=== PATIENT | male | born 1990 | race Caucasian/White ===

== ENCOUNTER 2018-04-29 08:43 | Inpatient (IN) | payer BC, SELFPAY ==
[2018-04-29] VITALS (44 sets, daily range): BP systolic 125–219; BP diastolic 78–147; PULSE 70–127; RESP 10–100; TEMP 36.6–36.8; O2SAT 14–100; BMI 19.3; BMI 19.1; BMI 19.2
--- NOTE | 2018-04-29 09:15 | CT_ITS ---
STUDY: CT BRAIN WITHOUT CONTRAST REASON FOR EXAM: Male, 27 years old. Headaches. Blurred vision and hypertension. RADIATION DOSAGE (If Supplied By Facility): CTDIvol = ( 44.99 ) mGy, DLP = ( 779.24 ) mGycm TECHNIQUE: Transaxial CT imaging of the brain was performed without administration of intravenous contrast material. Individualized dose optimization techniques were used for this CT. COMPARISON: None. FINDINGS: Normal soft tissue structures. Normal calvarium. Normal size ventricles and extra-axial spaces for the patient's age. Normal white matter tracts of the cerebral hemispheres. Normal basal ganglia and thalami. Normal brainstem. Normal cerebellum. There is no intracranial hemorrhage. There are no findings of an acute ischemic infarction. Normal visualized paranasal sinuses. Prominence of the adenoidal tissue. CT/Brain/Head without Contrast IMPRESSION: Normal unenhanced CT scan of the brain. Electronically Signed: Max Jolly MD at 10:00 EST Tel [phone], Service support ,
--- NOTE | 2018-04-29 09:51 | ED.RN ---
CALLED PHARMACY A 2ND TIME REGARDING TRANDATE.
[2018-04-29 09:57] LABS: Anion Gap 10 (5-15); BUN 38 mg/dL (7-18); BUN/Creat Ratio 12.2 RATIO (10-20); Chloride 103 mmol/L (98-107); Creatinine, Serum 3.11 mg/dL (0.70-1.30); EST Glomerular Filtration Rate 25 mL/min (>60); Est Glom Filt Rate - Afr Amer 31 mL/min (>60); Estimated Creatinine Clearance 30.35 ml/min; Glucose 109 mg/dL (74-106); Potassium 3.4 mmol/L (3.5-5.1); Sodium Level 138 mmol/L (136-145)
[2018-04-29] MEDS: Labetalol 20 MG/4 ML Vial 10 MG IV (09:59)
--- NOTE | 2018-04-29 10:23 | ED.VISSUMM ---
- ER Visit Summary Date of Service: 04/29/18 Chief Complaint: Headaches and elevated blood pressure History of Present Illness: The patient is a 27 M recently started on verapamil by his primary care physician Dr. Ernesto Mcnally for headaches. Patient is currently not being treated for hypertension. He says sometimes his headaches are are bad enough that he gets nauseated. He denies any trouble moving his arms or legs. He does have intermittent blurred vision. He denies any head trauma. He is on no blood thinners. Physical Examination: Young male no acute distress. Initial blood pressure is elevated at 211/134. Heart rate 105. HEENT exam is unremarkable. No facial droop. Pupils round reactive light. Extra motions are intact. Normal speech. Neck nontender. No lymphadenopathy. Lungs clear to auscultation bilaterally. Heart regular rhythm no murmur. Rate about 100. Abdomen soft nontender. Normal bowel sounds no peritoneal signs. Patient is moving all 4 extremities. Neurovascular intact. Calves are nontender without edema or cords. Neurologically patient is awake and alert with no focal motor deficits. Equal symmetrical road conductor strength. Dorsi and plantar flexion intact. NIH score is 0. Test Results: Seizures white count of 10. Hemoglobin of 12. Mild anemia. His electrolytes are unremarkable his BUN is 38 his creatinine is 3.1 do not have any old labs available for comparison. This may be from untreated hypertension that he was unaware of that he had. CT of the brain was read as normal by the radiologist read both by him and reviewed by me. Emergency Department Course and Treatment: I believe most of patient's symptoms are consistent with new onset hypertension. I am checking screening labs and a CT of his brain. Treatment Plan: Patient was treated with labetalol IV boluses x2 without any significant change. I spoke to the hospitalist will start him on a Cardene drip. He will be admitted to the ICU. Disposition: Discharge Impression: Acute hypertensive emergency Acute renal injury from hypertension This note was generated with [employer] dictation software. It may contain incorrect words, spelling, and punctuation that were not noted in review of the chart prior to signing ED Disposition - Plan for ED Patient: Chief Complaint: Eye Problem Referrals: Ernesto Mcnally MD [Primary Care Provider] -
--- NOTE | 2018-04-29 10:26 | ED.DCSUM_ITS ---
- ER Visit Summary Date of Service: 04/29/18 Chief Complaint: Headaches and elevated blood pressure History of Present Illness: The patient is a 27 M recently started on verapamil by his primary care physician Dr. Ernesto Mcnally for headaches. Patient is currently not being treated for hypertension. He says sometimes his headaches are are bad enough that he gets nauseated. He denies any trouble moving his arms or legs. He does have intermittent blurred vision. He denies any head trauma. He is on no blood thinners. Physical Examination: Young male no acute distress. Initial blood pressure is elevated at 211/134. Heart rate 105. HEENT exam is unremarkable. No facial droop. Pupils round reactive light. Extra motions are intact. Normal speech. Neck nontender. No lymphadenopathy. Lungs clear to auscultation bilaterally. Heart regular rhythm no murmur. Rate about 100. Abdomen soft nontender. Normal bowel sounds no peritoneal signs. Patient is moving all 4 extremities. Neurovascular intact. Calves are nontender without edema or cords. Neurologically patient is awake and alert with no focal motor deficits. Equal symmetrical field care coordinator strength. Dorsi and plantar flexion intact. NIH score is 0. Test Results: Seizures white count of 10. Hemoglobin of 12. Mild anemia. His electrolytes are unremarkable his BUN is 38 his creatinine is 3.1 do not have any old labs available for comparison. This may be from untreated hypertension that he was unaware of that he had. CT of the brain was read as normal by the radiologist read both by him and reviewed by me. Emergency Department Course and Treatment: I believe most of patient's symptoms are consistent with new onset hypertension. I am checking screening labs and a CT of his brain. Treatment Plan: Patient was treated with labetalol IV boluses x2 without any significant change. I spoke to the hospitalist will start him on a Cardene drip. He will be admitted to the ICU. Disposition: Discharge Impression: Acute hypertensive emergency Acute renal injury from hypertension This note was generated with [employer] dictation software. It may contain incorrect words, spelling, and punctuation that were not noted in review of the chart prior to signing ED Disposition - Plan for ED Patient: Chief Complaint: Eye Problem Referrals: Ernesto Mcnally MD [Primary Care Provider] -
[2018-04-29 10:33] LABS: Hematocrit 37.3 % (40-54); Hemoglobin 12.6 g/dl (13.0-16.5); Mean Corp Hgb Conc 33.8 g/gl (32-36); Mean Corpuscular Hgb 31.4 pg (27.0-32.0); Mean Platelet Vol. 10.1 fl (6.2-12.0); Platelet Count 357 K/mm3 (150-450); RBC Distribution Width CV 12.4 % (11.6-14.6); RBC Distribution Width SD 42.5 fl (35.1-43.9); Red Blood Count 4.01 M/mm3 (4.6-6.2); Scan Indicated on CBC? Y/N NO; White Blood Count 10.9 K/mm3 (4.4-11.0)
--- NOTE | 2018-04-29 11:00 | NURSING ---
DR BROWN IN ER
--- NOTE | 2018-04-29 11:08 | ED.RN ---
CALLED PHARMACY FOR JAYJAY.
--- NOTE | 2018-04-29 11:15 | NURSING ---
NO OLD EKGS
--- NOTE | 2018-04-29 11:16 | NURSING ---
ICU [facility], RENAL INSUFFIENCIEY
--- NOTE | 2018-04-29 11:38 | EKG12_ITS ---
Test Reason : HIGH BP Blood Pressure : / mmHG Vent. Rate : 087 BPM Atrial Rate : 087 BPM P-R Int : 150 ms QRS Dur : 096 ms QT Int : 386 ms P-R-T Axes : 077 082 072 degrees QTc Int : 464 ms Normal sinus rhythm Incomplete right bundle branch block Borderline ECG Confirmed by MATHEW COBURN ([id number]), industrial editor REAGAN VILLALOBOS ([id number]) on 05/04/2018 2:35:44 PM Referred By: KEVIN Confirmed By:MATHEW COBURN
--- NOTE | 2018-04-29 11:44 | NURSING ---
ICU 7
--- NOTE | 2018-04-29 11:44 | ED.RN ---
ICU WILL CALL BACK TO GET REPORT
--- NOTE | 2018-04-29 11:50 | PCM.HP.STD ---
Problem List (1) Hypertensive emergency Status: Acute (2) Headache Status: Acute (3) Kidney failure Status: Acute History of Present Illness Date of Admission: 04/29/18 Chief Complaint: Headache and blurry vision The patient is a 27 year old M came to ED with headache and blurry vision. Patient does not know his history of hypertension but in ED was found 190/127, heart rate 124/min, sinus tachycardia on monitor. Patient was given 2 doses of IV labetalol 10 mg but his blood pressure was still high 184/108, 179/134 and then decided to put on IV nicardipine drip and admitted in ICU. Patient is on verapamil by PCP for headache only once about 3 weeks ago. Is not any antihypertensive medication. He also lost about 15 pounds in last 6 months. Basic blood work in ER shows K3.4, creatinine 3.11, BUN 38. H&H 12.6/37.3. No previous labs to compare with. EKG shows normal sinus rhythm at 87 bpm with incomplete RBBB but no LVH. Patient accepted smoking 1 pack/day since the age of 10 or 11. He also drinks alcohol and states has quit about 3-4 months ago because of headache. Past Medical History Allergies codeine Allergy (Verified 04/29/18 08:48) Rash Home Medications: Ambulatory Orders Medication Instructions Recorded Verapamil HCl [Verapamil ER] 1 tab PO DAILY 04/29/18 Smoking Status: Current every day smoker - Smoking - *Family History Maternal History Items: Hypertension Review of Systems Constitutional: Reports: Malaise, Weakness, Weight Change, Fatigue HEENT: Denies: Head Aches, Sinus Congestion, Sinus Drainage Cardiovascular: Denies: Chest Pain, Palpitations Respiratory: Denies: Cough, Shortness of Breath, Shortness of breath at rest, Shortness of breath upon exertion, Sputum production Gastrointestinal: Denies: Abdominal Pain, Nausea, Vomiting Genitourinary: Denies: Dysuria Musculoskeletal: Denies: Joint Pain, Joint Tenderness Skin: Denies: Rash, Wounds Neurological: Reports: Headaches. Denies: Focal weakness, Numbness, Tingling Psychiatric: Denies: Anxiety, Depression, Homicidal Ideations, Suicidal Ideations Hematologic/ Lymphatic: Denies: Easy Bruising, Easy Bleeding VTE Information - Inpt Only VTE Present on Admission: No VTE Mechan Device Prophylaxis: None VTE Pharm Prophylaxis ordered?: No Reason prophylaxis not ordered:: Procedure Not Indicated - Low risk. Early ambulation encouraged Patient Problems: Active and Suspected Problems Hypertensive emergency (Acute) Headache (Acute) Kidney failure (Acute) - Physical Exam General: Alert, Oriented x3, Cooperative HEENT: Atraumatic, PERRLA, EOMI, Normocephalic Neck: Supple, No JVD, Negative Carotid Bruits Lungs: Clear to auscultation, Normal air movement, No rhonchi, No wheeze, No rales Cardiovascular: Regular rate, Regular Rhythm, Normal S1, Normal S2, No murmurs Abdomen: Bowel Sounds Present, Soft, Non Tender, Non-Distended Extremities: No edema, Capillary Refill Less than 3 Seconds Skin: No rashes, No breakdown Musculoskeletal: No Tenderness to Palpation of Joints or Extremities, Muscle Wasting Lymphatic: No Cervical, Supraclavicular, or Inguinal Adenopathy Neurological: Cranial nerves II-XII grossly intact, Deep Tendon Reflexes 2+/4 and Symmetrical, Neuro grossly intact, Motor Exam 5/5 strength throughout Psych/Mental Status: Normal Affect, Appropriate Vital Signs Temp Pulse Resp BP Pulse Ox 98.1 F 100 16 171/102 H 100 04/29/18 11:00 04/29/18 11:48 04/29/18 11:48 04/29/18 11:48 04/29/18 11:48 Oxygen Delivery Method Room Air Weight: 135 lb Body Mass Index (BMI) 19.3 Laboratory Tests Past 24 Hrs 04/29/18 04/29/18 04/29/18 09:30 09:30 09:30 WBC 10.9 RBC 4.01 L Hgb 12.6 L Hct 37.3 L MCV 93.0 MCH 31.4 MCHC 33.8 RDW 12.4 RDW Differential 42.5 Plt Count 357 MPV 10.1 Sodium 138 Potassium 3.4 L Chloride 103 Carbon Dioxide 25.0 Anion Gap 10 BUN 38 H Creatinine 3.11 H Estim Creat Clear Calc 30.35 Est GFR (MDRD) Af Amer 31 L Est GFR (MDRD) Non-Af 25 L BUN/Creatinine Ratio 12.2 Glucose 109 H Calcium 9.0 Magnesium Pending Total Bilirubin Pending Direct Bilirubin Pending AST Pending ALT Pending Alkaline Phosphatase Pending Total Protein Pending Albumin Pending Assessment/Plan All Active Problems Hypertensive emergency (Acute) Headache (Acute) Kidney failure (Acute) The patient is a 27 year old M came to ED with headache and blurry vision. Patient does not know his history of hypertension but in ED was found 190/127, heart rate 124/min, sinus tachycardia on monitor. Patient was given 2 doses of IV labetalol 10 mg but his blood pressure was still high 184/108, 179/134 and then decided to put on IV nicardipine drip and admitted in ICU. Patient is on verapamil by PCP for headache only once about 3 weeks ago. Is not any antihypertensive medication. He also lost about 15 pounds in last 6 months. Basic blood work in ER shows K3.4, creatinine 3.11, BUN 38. H&H 12.6/37.3. No previous labs to compare with. EKG shows normal sinus rhythm at 87 bpm with incomplete RBBB but no LVH. Chest x-ray reported normal Patient accepted smoking 1 pack/day since the age of 10 or 11. He also drinks alcohol and states has quit about 3-4 months ago because of headache. 1 hypertensive emergency with headache and blurry vision: CT head was done in the ER and reported normal. Patient is being admitted in ICU as he is on Cardizem drip which is maximal rate. Boss Dyer has been consulted as per ICU admission regulation. 2D echo is ordered. Is ordered 2. 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 Avoid nephrotoxic medication including KIZZY inhibitor, diuretics. UA, random urine protein, urine electrolytes and urine creatinine ordered. Renal ultrasound and arterial Doppler ordered. Nephrology consult. Discussed with Dr. Harman who already informed Dr. Nguyen and he will be coming to see the patient. 3. Headache and blurry vision: Patient will need to see otolaryngology teacher as outpatient for Fundoscopy with dilated pupil. Fioricet and new verapamil for headache. 4. DVT prophylaxis: Low risk. Early ambulation encouraged. Clinical Impression(s) from Imaging Studies Brain CT 04/29/18 09:15 IMPRESSION: Normal unenhanced CT scan of the brain. Chest X-Ray 04/29/18 12:00 IMPRESSION: Normal x-ray examination of the chest. Code Visit Inpatient E&M: 96564 Init Hosp L3
--- NOTE | 2018-04-29 11:58 | ED.RN ---
GAVE REPORT TO TANK DIMAS.
[2018-04-29 12:00] LABS: AST(SGOT) 20 U/L (15-37); Alanine Aminotransfer ALT/SGPT 24 U/L (16-61); Albumin, Serum 3.6 g/dL (3.2-5.0); Alkaline Phosphatase 87 U/L (45-117); Bilirubin, Direct 0.16 mg/dL (0.00-0.30); Magnesium 2.2 mg/dL (1.6-2.6); Protein, Total 7.6 g/dL (6.4-8.2)
--- NOTE | 2018-04-29 12:00 | RAD_ITS ---
STUDY: X-RAY CHEST REASON FOR EXAM: Male, 27 years old. Hypertension. TECHNIQUE: PA and lateral views of the chest. COMPARISON: None. FINDINGS: The lungs are clear and expanded. There is no demonstrated pleural abnormality. Normal size heart. Normal mediastinum and hermelinda. Normal visualized pulmonary arteries. Normal visualized aortic arch and descending thoracic aorta. There is a levoscoliosis of the thoracic spine. Normal visualized ribs, clavicles, and shoulders. There is no demonstrated abnormality of the visualized soft tissue structures of the upper abdomen. RAD/Chest PA and Lateral IMPRESSION: Normal x-ray examination of the chest. Electronically Signed: nAjum Davis MD at 12:48 EST , Service support ,
--- NOTE | 2018-04-29 12:21 | ECHOD_ITS ---
Reason For Study: HTN Procedure This was a 2D Doppler, Color Flow transthoracic echocardiogram. Exam performed portable in ICU/CCU. Left Ventricle Moderate concentric left ventricular hypertrophy. The estimated ejection fraction is 65 %. Stage 1 diastolic dysfunction. No regional wall motion abnormalities noted. Right Ventricle Normal size and thickness. Normal systolic function. Atria Normal left atrium. Normal right atrium. Normal atrial septum. Mitral Valve The mitral valve is structurally normal. No prolapse or stenosis seen. Tricuspid Valve Trivial tricuspid valve insufficiency. Right ventricular systolic pressure estimated to be 42 mmHg. Mild pulmonary hypertension. Aortic Valve Normal aortic valve. Trisinus/trileaflet aortic valve. Pulmonic Valve Normal pulmonic valve. Great Vessels Normal aortic root. Normal arch. Normal inferior vena cava. Inferior vena cava collapse with sniff. Pericardium/Pleural No pericardial effusion. MMode/2D Measurements & Calculations LVIDd: 4.3 cm IVSd: 1.1 cm Ao root diam: 3.2 cm LVIDs: 2.1 cm LVPWd: 1.1 cm RVDd: 3.1 cm FS: 51.5 % LAV(MOD-bp): 53.9 ml LA A4 area: 17.8 cm2 LA dimension(2D): 3.2 cm LAV(MOD-bp) Indexed: 30.7 ml/m2 LAV(MOD-sp2): 45.0 ml LAV(MOD-sp4): 58.3 ml RA A4 area: 15.1 cm2 Doppler Measurements & Calculations MV E max sonny: 89.3 cm/sec Lat Peak E' Sonny: 15.1 cm/sec Med Peak E' Sonny: 12.5 cm/sec MV A max sonny: 119.6 cm/sec E/E' lat: 5.9 E/E' med: 7.2 MV E/A: 0.75 Ao V2 max: 136.6 cm/sec LV V1 max: 119.9 cm/sec PA V2 max: 250.5 cm/sec Ao max P.5 mmHg LV V1 max P.8 mmHg PA V2 mean: 161.4 cm/sec PA V2 VTI: 35.8 cm TR max sonny: 301.3 cm/sec TR max P.3 mmHg Interpretation Summary Moderate concentric left ventricular hypertrophy. The estimated ejection fraction is 65 %. Stage 1 diastolic dysfunction. Trivial tricuspid valve insufficiency. Right ventricular systolic pressure estimated to be 42 mmHg. Mild pulmonary hypertension. There is no comparison study available. Ordering Physician: Shailesh Cyr Referring Physician: Ernesto Mcnally Performed By: Angie White RDCS, RVT
--- NOTE | 2018-04-29 13:17 | US_ITS ---
STUDY: RENAL ULTRASOUND - COMPLETE REASON FOR EXAM: Male, 27 years old. Acute renal failure TECHNIQUE: Ultrasound evaluation of the kidneys was performed with real-time and static garcia-scale imaging. COMPARISON: None. FINDINGS: RIGHT KIDNEY: Normal location of the right kidney, which is normal in size. The right kidney measures 10.1 x 5.2 x 5.7 cm. There is echogenic cortex of the right kidney. The renal cortex measures 1.7 cm. There is no right renal mass or cyst. There are no right renal calculi. There is no right hydronephrosis. DISTAL RIGHT URETER: There is non-visualization of the distal right ureter. LEFT KIDNEY: Normal location of the left kidney, which is normal in size. The left kidney measures 9.4 x 4.4 x 5.5 cm. There is echogenic cortex of the left kidney. The renal cortex measures 1.6 cm. There is no left renal mass or cyst. There are no left renal calculi. There is no left hydronephrosis. DISTAL LEFT URETER: There is non-visualization of the distal left ureter. US/Kidney and Bladder IMPRESSION: Degenerative cortex of the kidneys suggesting medical renal disease. Electronically Signed: Naresh Jameson DO at 19:41 EST Tel [phone], Service support ,
--- NOTE | 2018-04-29 13:18 | RDU_ITS ---
Reason For Study: HTN EMERGENCY Right Renal Artery Left Renal Artery Right renal artery ostium 90.9/12.3 Left renal artery ostium 112.0/47.4 RSV/EDV. PSV/EDV. Right renal artery proximal Left renal artery mid 115.0/31.7 93.5/17.7 PSV/EDV. PSV/EDV . Right renal artery mid 79.4/15.3 Left renal artery distal 112.0/47.4 PSV/EDV. PSV/EDV. Right renal artery distal 91.1/18.3 Left Renal Parenchyma PSV/EDV. Left upper pole medulla 18.7/4.6 Right Renal Parenchyma PSV/EDV . Upper Pole Medula 21.8/6.3 PSV/EDV. Left upper pole medulla EDR .25 . Right upper pole medulla EDR .29 . Left upper pole medulla R.I. .75 . Right upper pole medulla R.I. .71 . UP Cortex 16.3/6.9 PSV/EDV. Upper [place] Cortx 13.7/5.4 PSV/EDV. Left upper pole cortex EDR .42 . Right upper pole cortex EDR .39 . Left upper pole cortex R.I. .58 . Right upper pole cortex R.I. .61 . Left lower Pole medulla 19.1/5.9 Right lower Pole medulla 18.3/3.9 PSV/EDV . PSV/EDV . Left lower pole medulla EDR .31 . Right lower pole medulla EDR .21 . Left lower pole medulla R.I. .69 . Right lower pole medulla R.I. .79 . Lower Pole Cortx 13.7/3.9 PSV/EDV. Lower Pole Cortex 15.6/3.5 PSV/EDV. Left lower pole cortex EDR .28 . Right lower pole cortex EDR .22 . Left lower pole cortex R.I. .72 . Right lower pole cortex R.I. .77 . Left Renal Hilar Right Renal Hilar LT Hilar avg 29.4/9.1 PSV/EDV . Right Hilar avg 35.8/7.6 PSV/EDV. Left hilar acceleration time 59 Right hilar acceleration time 44 m/sec. m/sec. Left Renal Dimensions Right Renal Dimensions Left kidney size 9.3 cm . Right kidney size 9.7 cm . Left cortical dimension 1.1 cm . Right cortical dimension 1.1 cm . Aorta Proximal abdominal aorta 2.2 x 2.1 cm . Distal abdominal aorta 1.5 x 1.5 cm . Proximal abdominal aorta peak systolic velocity is 161.0 cm/sec . Distal abdominal aorta peak systolic velocity is 111.0 cm/sec . Interpretation Summary Normal aortic diameter but with increased velocities making renal aortic ratios not reliable <60% stenosis bilateral renal arteries Bilateral renal resistivity indices are normal--findings do not suggest intrinsic renal parenchymal disease. Right kidney length 9.7cm Left kidney length 9.3cm Ordering Physician: Shailesh Cyr Referring Physician: Ernesto Mcnally Performed By: Verónica Reed RVT
[2018-04-29 14:15] LABS: Bacteria 0 SEEN /hpf (None Seen); Mucous, Urine 0 SEEN /hpf (<or=2+); Squamous Epithelial Cells - UA 0 SEEN /hpf (0-5)
[2018-04-29 14:19] LABS: Color, Urine Yellow (Yellow); Glucose, Dipstick Normal (Normal); Ketone-Dipstick Negative (Negative); Leukocyte Esterase-Dipstick 25 /ul (Negative); Nitrite-Dipstick Negative (Negative); Occult Blood-Urine 250 /ul (Negative); Protein-Dipstick 500 mg/dl (Negative); Specific Gravity, Urine 1.015 (1.002-1.030); Urine Bilirubin Dipstick Negative (Negative); Urine Clarity Sl. Cloudy (Clear); Urine Urobilinogen Normal (Normal)
[2018-04-29 14:30] LABS: Urine Chloride 71 mmol/L (Not Establ.); Urine Sodium 73 mmol/L (Not Establ.)
[2018-04-29 14:32] LABS: Red Blood Cells-Urine 25-50 SEEN /hpf (0-5); White Blood Cells 0-5 SEEN /hpf (0-5)
[2018-04-29 14:41] LABS: Amphetamine Urine VISTA NEGATIVE (<1000 ng/mL); Barbiturate Urine VISTA NEGATIVE (< 200 ng/mL); Benzodiazepine Urine VISTA NEGATIVE (< 200 ng/mL); Cocaine Urine VISTA NEGATIVE (< 300 ng/mL); Ecstacy Urine VISTA NEGATIVE (< 500 ng/mL); Methadone Urine VISTA NEGATIVE (< 300 ng/mL); PCP Urine VISTA NEGATIVE (< 25 ng/mL); THC Urine VISTA POSITIVE (< 50 ng/mL); Vista UDS pH Range 6
--- NOTE | 2018-04-29 14:43 | PCM.CONS.R ---
Consultation - Renal 04/29/18 PCP/ Referring MD: Requesting physician: Shailesh Cyr MD Primary care physician: Ernesto Mcnally MD Reason for Consultation:: YAMILET, hypertensive urgency - History of Present Illness History of Present Illness: The patient is a 27 year old M with recent history of headache who has otherwise been healthy until 6 months ago. He started developing daily headache. He had been taking Excedrine without much relief. He was seen by his new PCP on 04/20/18 and was placed on verapamil for headache. Unclear what the pt's BP was at the appointment. The pt presents to the hospital with ongoing headache despite verapamil. He also reports palpitation and blurred vision in the past 2 weeks. The pt denies current chest pain, shortness of breath, or edema. He does have gross hematuria intermittently for the past 2 weeks. He reports urinary frequency but no other signs of LUTS. He has occasional L flank pain which has been self-limited. He denies chronic NSAID use. There has been no rash, fever or weight loss. - Allergies Allergies: Allergies codeine Allergy (Verified 04/29/18 08:48) Rash - Current Medications Current Medications: Current Medications Acetaminophen (Tylenol) 650 mg PO Q4H PRN PRN PRN Reason: HEADACHE Acetaminophen/Butalbital/Caffeine (Fioricet) 1 - 2 tablet PO Q4H PRN PRN PRN Reason: moderate to severe headache Al Hydroxide/Mg Hydroxide (Mylanta Ii) 30 ml PO Q6H PRN PRN PRN Reason: Gastric burning Hydralazine HCl (Apresoline Iv) 10 mg IV Q4H PRN PRN Reason: hypertension Hydralazine HCl (Apresoline) 25 mg PO TID [facility] Nicardipine HCl 25 mg/ Sodium (Chloride) 250 mls @ 50 mls/hr IV .Q5H BON Last Admin: 04/29/18 13:55 Dose: 50 mls/hr Magnesium Hydroxide (Milk Of Magnesia) 30 ml PO DAILY PRN PRN PRN Reason: Constipation Metoprolol Tartrate (Lopressor (Beta Ronnie)) 25 mg PO BID [facility] Ondansetron HCl (Zofran) 4 mg IV Q8H PRN PRN PRN Reason: NAUSEA Senna/Docusate Sodium (Senokot-S, Lola-Colace) 2 tablet PO BID PRN PRN Reason: constipation Sodium Chloride () 5 - 15 ml IV UD PRN PRN Reason: SALINE FLUSH Verapamil HCl (Calan Sr) 120 mg PO DAILY BON Zolpidem Tartrate (Ambien (Generic)) 5 mg PO QHS PRN PRN PRN Reason: INSOMNIA - Social History Smoking Status: Current every day smoker - Smoking - Family History Maternal History Items: Hypertension Review of Systems Constitutional: Denies: Anorexia, Chills, Fever, Malaise, Weight Change Eyes: Reports: Blurred vision, Vision Change. Denies: Double vision HEENT: Denies: Head Aches, Sinus Congestion, Sinus Drainage Cardiovascular: Reports: Palpitations. Denies: Chest Pain, Claudication, Edema, Orthopnea, Paroxysmal Noc. Dyspnea Respiratory: Denies: Cough, Shortness of breath at rest, Sputum production Gastrointestinal: Denies: Abdominal Pain, Hematochezia, Nausea, Melena, Vomiting Genitourinary: Reports: Frequency. Denies: Dysuria, Hesitancy, Incontinence, Retention, Urgency Musculoskeletal: Reports: Back Pain. Denies: Joint Pain, Joint Tenderness Skin: Denies: Rash, Wounds Neurological: Denies: Numbness, Tingling, Focal weakness Psychiatric: Denies: Anxiety, Depression, Homicidal Ideations, Suicidal Ideations Endocrine: Denies: Heat/ Cold Intolerance, Polydipsia, Polyuria Hematologic/ Lymphatic: Denies: Easy Bruising, Easy Bleeding Patient Problems: Active and Suspected Problems Hypertensive emergency (Acute) Headache (Acute) Kidney failure (Acute) - Physical Exam General: Alert, Oriented x3, Cooperative HEENT: Atraumatic, PERRLA, EOMI, Normocephalic Oral: Moist Mucosa Neck: Supple, No JVD Lungs: Clear to auscultation Cardiovascular: Regular Rhythm - Tachycardic, Normal S1, Normal S2, Murmur - 3/6 systolic Abdomen: Bowel Sounds Present, Soft, Non Tender, Non-Distended, - - no abdominal bruit Extremities: No clubbing, No cyanosis, No edema Skin: No rashes Musculoskeletal: No Tenderness to Palpation of Joints or Extremities Lymphatic: No Cervical, Supraclavicular, or Inguinal Adenopathy Neurological: Cranial nerves II-XII grossly intact Psych/Mental Status: Normal Affect Vital Signs Temp Pulse Resp BP Pulse Ox 98.1 F 110 H 13 137/80 H 100 04/29/18 11:00 04/29/18 14:15 04/29/18 14:15 04/29/18 14:15 04/29/18 14:15 Oxygen Flow Rate (L/min) 2 Oxygen Delivery Method Nasal Cannula Weight: 60.6 kg Body Mass Index (BMI) 19.1 Laboratory Tests Past 24 Hrs 04/29/18 04/29/18 04/29/18 09:30 09:30 09:30 WBC 10.9 RBC 4.01 L Hgb 12.6 L Hct 37.3 L MCV 93.0 MCH 31.4 MCHC 33.8 RDW 12.4 RDW Differential 42.5 Plt Count 357 MPV 10.1 Sodium 138 Potassium 3.4 L Chloride 103 Carbon Dioxide 25.0 Anion Gap 10 BUN 38 H Creatinine 3.11 H Estim Creat Clear Calc 30.35 Est GFR (MDRD) Af Amer 31 L Est GFR (MDRD) Non-Af 25 L BUN/Creatinine Ratio 12.2 Glucose 109 H Calcium 9.0 Magnesium 2.2 Total Bilirubin 0.90 Direct Bilirubin 0.16 AST 20 ALT 24 Alkaline Phosphatase 87 Troponin I Total Protein 7.6 Albumin 3.6 Globulin 4.0 Urine Color Urine Clarity Urine pH Ur Specific [place] Urine Protein Urine Glucose (UA) Urine Ketones Urine Occult Blood Urine Nitrite Urine Bilirubin Urine Urobilinogen Ur Leukocyte Esterase Urine RBC Urine WBC Ur Squamous Epith Cells Urine Bacteria Urine Mucus U Random Total Protein Ur Random Sodium Urine Potassium Urine Chloride Urine Opiates Screen Urine Methadone Screen Ur Barbiturates Screen Ur Phencyclidine Scrn Ur Amphetamines Screen U Methamphetamin-MDMA U Benzodiazepines Scrn Urine Cocaine Screen U Cannabinoids Screen Ur Drug Screen Comment Ethyl Alcohol 04/29/18 04/29/18 04/29/18 13:30 13:55 14:05 WBC RBC Hgb Hct MCV MCH MCHC RDW RDW Differential Plt Count MPV Sodium Potassium Chloride Carbon Dioxide Anion Gap BUN Creatinine Estim Creat Clear Calc Est GFR (MDRD) Af Amer Est GFR (MDRD) Non-Af BUN/Creatinine Ratio Glucose Calcium Magnesium Total Bilirubin Direct Bilirubin AST ALT Alkaline Phosphatase Troponin I 0.016 Total Protein Albumin Globulin Urine Color Urine Clarity Urine pH Ur Specific [place] Urine Protein Urine Glucose (UA) Urine Ketones Urine Occult Blood Urine Nitrite Urine Bilirubin Urine Urobilinogen Ur Leukocyte Esterase Urine RBC Urine WBC Ur Squamous Epith Cells Urine Bacteria Urine Mucus U Random Total Protein Ur Random Sodium Urine Potassium Urine Chloride Urine Opiates Screen NEGATIVE Urine Methadone Screen NEGATIVE Ur Barbiturates Screen NEGATIVE Ur Phencyclidine Scrn NEGATIVE Ur Amphetamines Screen NEGATIVE U Methamphetamin-MDMA NEGATIVE U Benzodiazepines Scrn NEGATIVE Urine Cocaine Screen NEGATIVE U Cannabinoids Screen POSITIVE H Ur Drug Screen Comment Ethyl Alcohol 5.0 04/29/18 04/29/18 04/29/18 14:05 14:05 14:05 WBC RBC Hgb Hct MCV MCH MCHC RDW RDW Differential Plt Count MPV Sodium Potassium Chloride Carbon Dioxide Anion Gap BUN Creatinine Estim Creat Clear Calc Est GFR (MDRD) Af Amer Est GFR (MDRD) Non-Af BUN/Creatinine Ratio Glucose Calcium Magnesium Total Bilirubin Direct Bilirubin AST ALT Alkaline Phosphatase Troponin I Total Protein Albumin Globulin Urine Color Yellow Urine Clarity Sl. Cloudy Urine pH 6.0 Ur Specific [place] 1.015 Urine Protein 500 H Urine Glucose (UA) Normal Urine Ketones Negative Urine Occult Blood 250 H Urine Nitrite Negative Urine Bilirubin Negative Urine Urobilinogen Normal Ur Leukocyte Esterase 25 H Urine RBC 25-50 SEEN Urine WBC 0-5 SEEN Ur Squamous Epith Cells 0 SEEN Urine Bacteria 0 SEEN Urine Mucus 0 SEEN U Random Total Protein Pending Ur Random Sodium 73 Urine Potassium 22.0 Urine Chloride 71 Urine Opiates Screen Urine Methadone Screen Ur Barbiturates Screen Ur Phencyclidine Scrn Ur Amphetamines Screen U Methamphetamin-MDMA U Benzodiazepines Scrn Urine Cocaine Screen U Cannabinoids Screen Ur Drug Screen Comment Ethyl Alcohol Assessment/Plan All Active Problems Hypertensive emergency (Acute) Headache (Acute) Kidney failure (Acute) 1. Acute kidney injury. Presumed YAMILET since there is no prior SCr for comparison. Undiagnosed CKD is possible. Will see what his kidney sizes are on ultrasound. Agree with checking UA, urine indices, urine protein:creatinine ratio, and renal ultrasound. History of gross hematuria, in the past 2 weeks, makes me worry about acute GN. I will check serologies. Depending on the results of the above studies, the pt may need a kidney biopsy for definitive diagnosis, especially if there is no improvement of renal function. There is no urgent need for kidney replacement therapy (dialysis) at this time. Current medications were reviewed and are appropriately dosed for current renal function. 2. Hypertension. Difficult to tell if HTN is the cause of renal failure or if renal failure has led to difficult to control BP at this point. Nevertheless, treatment of HTn will help decrease injury to the kidneys. Agree with nicardipine gtt. The pt is also on metoprolol 25 BID, verpamil 120 mg qday and hydralazine 25 mg TID. Agree with Dr. Cyr that we only need to decrease BP by 25-30% in the first 24 hrs. Aim for SBP of 150-160 and DBP of 70-100 in the first 24 hrs.
[2018-04-29] MEDS: Metoprolol Tartrate 25 MG Tablet PO ×2 (15:14→21:45)
[2018-04-29] MEDS: hydrALAZINE 25 MG Tablet PO ×2 (15:15→21:45)
[2018-04-29] MEDS: Acetaminophen/Butalbital/Caffe 1 Tablet PO ×2 (15:16→20:18)
[2018-04-29] MEDS: Ondansetron 4 MG/2 ML Vial IV (20:19)
[2018-04-29] MEDS: 0.9% NaCl Peripheral Flush Adult/Peds IV (20:19)
[2018-04-30] VITALS (26 sets, daily range): BP systolic 135–166; BP diastolic 94–120; PULSE 76–100; RESP 12–29; TEMP 36.7–37.7; O2SAT 96–100
[2018-04-30] MEDS: Acetaminophen/Butalbital/Caffe 1 Tablet PO ×4 (00:21→21:21)
[2018-04-30 04:39] LABS: Anion Gap 9 (5-15); BUN 34 mg/dL (7-18); BUN/Creat Ratio 10.1 RATIO (10-20); Calcium,Total 8.4 mg/dL (8.5-10.1); Chloride 106 mmol/L (98-107); Creatinine, Serum 3.37 mg/dL (0.70-1.30); EST Glomerular Filtration Rate 23 mL/min (>60); Est Glom Filt Rate - Afr Amer 28 mL/min (>60); Estimated Creatinine Clearance 27.72 ml/min; Glucose 100 mg/dL (74-106); Potassium 4.2 mmol/L (3.5-5.1); Sodium Level 140 mmol/L (136-145)
[2018-04-30] MEDS: hydrALAZINE 25 MG Tablet PO ×3 (06:21→21:11)
--- NOTE | 2018-04-30 08:43 | PCM.PN.HOSP ---
Patient Problems: Active and Suspected Problems Hypertensive emergency (Acute) Headache (Acute) Kidney failure (Acute) Subjective: Seen and examined. Patient is on nicardipine drip until morning and slowly tapered off. Blood pressure 140/86 though it dropped to 110 sometimes. Heart rate is controlled. Discussed with laborer pullet farm and lieutenant ballistics. Vitals/I&O's: Vital Signs Temp Pulse Resp BP Pulse Ox 98.4 F 92 17 141/108 H 97 04/30/18 08:00 04/30/18 08:00 04/30/18 08:00 04/30/18 07:00 04/30/18 08:00 Oxygen Flow Rate (L/min) 2 Oxygen Delivery Method Room Air Weight: 133 lb 9.602 oz Body Mass Index (BMI) 19.1 Intake and Output for Last 24 Hours 04/28/18 04/29/18 04/30/18 23:59 23:59 23:59 Intake Total 750 / 750 1000 / 1000 Output Total 600 / 600 875 / 875 Balance 150 / 150 125 / 125 General: Alert, Oriented x3, Cooperative HEENT: Atraumatic, PERRLA, EOMI, Normocephalic Neck: Supple, No JVD, Negative Carotid Bruits Lungs: Clear to auscultation, Normal air movement, No rhonchi, No wheeze, No rales Cardiovascular: Regular rate, Regular Rhythm, Normal S1, Normal S2, No murmurs Abdomen: Bowel Sounds Present, Soft, Non Tender, Non-Distended, - - Mild hematuria. No renal angle tenderness. No suprapubic tenderness Extremities: No edema, Capillary Refill Less than 3 Seconds Skin: No rashes, No breakdown Musculoskeletal: No Tenderness to Palpation of Joints or Extremities, Muscle Wasting Neurological: Cranial nerves II-XII grossly intact Psych/Mental Status: Normal Affect, Appropriate Laboratory Results 04/29/18 09:30: Sodium 138, Potassium 3.4 L, Chloride 103, Carbon Dioxide 25.0, Anion Gap 10, BUN 38 H, Creatinine 3.11 H, Estim Creat Clear Calc 30.35, Est GFR (MDRD) Af Amer 31 L, Est GFR (MDRD) Non-Af 25 L, BUN/Creatinine Ratio 12.2, Glucose 109 H, Calcium 9.0 04/29/18 09:30: WBC 10.9, RBC 4.01 L, Hgb 12.6 L, Hct 37.3 L, MCV 93.0, MCH 31.4, MCHC 33.8, RDW 12.4, RDW Differential 42.5, Plt Count 357, MPV 10.1 04/29/18 09:30: Magnesium 2.2, Total Bilirubin 0.90, Direct Bilirubin 0.16, AST 20, ALT 24, Alkaline Phosphatase 87, Total Protein 7.6, Albumin 3.6, Globulin 4.0 04/29/18 09:30: PANTERA Screen Pending, MONTY-1 Antibody Pending, SS-A/Ro IgG Antibody Pending, SS-B/La IgG Antibody Pending, Sm (Ugarte) Antibody Pending, WIRELESS OPERATOR Antibody Pending, Scl-70 Scleroderma Ab Pending, Double Strand DNA Ab Pending, Centromere B Antibody Pending 04/29/18 09:30: c-ANCA Antibody Pending, p-ANCA Antibody Pending, Complement C3 Pending, Complement C4 Pending 04/29/18 13:30: Ethyl Alcohol 5.0 04/29/18 13:55: Troponin I 0.016 04/29/18 14:05: Urine Opiates Screen NEGATIVE, Urine Methadone Screen NEGATIVE, Ur Barbiturates Screen NEGATIVE, Ur Phencyclidine Scrn NEGATIVE, Ur Amphetamines Screen NEGATIVE, U Methamphetamin-MDMA NEGATIVE, U Benzodiazepines Scrn NEGATIVE, Urine Cocaine Screen NEGATIVE, U Cannabinoids Screen POSITIVE H, Ur Drug Screen Comment 04/29/18 14:05: U Random Total Protein 488.0 H 04/29/18 14:05: Urine Color Yellow, Urine Clarity Sl. Cloudy, Urine pH 6.0, Ur Specific [place] 1.015, Urine Protein 500 H, Urine Glucose (UA) Normal, Urine Ketones Negative, Urine Occult Blood 250 H, Urine Nitrite Negative, Urine Bilirubin Negative, Urine Urobilinogen Normal, Ur Leukocyte Esterase 25 H, Urine RBC 25-50 SEEN, Urine WBC 0-5 SEEN, Ur Squamous Epith Cells 0 SEEN, Urine Bacteria 0 SEEN, Urine Mucus 0 SEEN 04/29/18 14:05: Ur Random Sodium 73, Urine Potassium 22.0, Urine Chloride 71 04/29/18 14:27: Urine Creatinine 75.50 04/30/18 04:09: Sodium 140, Potassium 4.2, Chloride 106, Carbon Dioxide 25.0, Anion Gap 9, BUN 34 H, Creatinine 3.37 H, Estim Creat Clear Calc 27.72, Est GFR (MDRD) Af Amer 28 L, Est GFR (MDRD) Non-Af 23 L, BUN/Creatinine Ratio 10.1, Glucose 100, Calcium 8.4 L Current Medications Acetaminophen (Tylenol) 650 mg PO Q4H PRN PRN PRN Reason: HEADACHE Acetaminophen/Butalbital/Caffeine (Fioricet) 1 - 2 tablet PO Q4H PRN PRN PRN Reason: moderate to severe headache Last Admin: 04/30/18 00:21 Dose: 2 tablet Al Hydroxide/Mg Hydroxide (Mylanta Ii) 30 ml PO Q6H PRN PRN PRN Reason: Gastric burning Hydralazine HCl (Apresoline Iv) 10 mg IV Q4H PRN PRN Reason: hypertension Hydralazine HCl (Apresoline) 25 mg PO TID BON Last Admin: 04/30/18 06:21 Dose: 25 mg Magnesium Hydroxide (Milk Of Magnesia) 30 ml PO DAILY PRN PRN PRN Reason: Constipation Metoprolol Tartrate (Lopressor (Beta Ronnie)) 25 mg PO BID BON Last Admin: 04/29/18 21:45 Dose: 25 mg Nicotine (Nicoderm Cq (Pbkc)) 21 mg TRANSDERM. DAILY BON Last Admin: 04/29/18 19:17 Dose: 21 mg Ondansetron HCl (Zofran) 4 mg IV Q8H PRN PRN PRN Reason: NAUSEA Last Admin: 04/29/18 20:19 Dose: 4 mg Petrolatum (Sarna, Men-Phor) 1 applic TOPICAL 4X/DAY PRN PRN; Protocol PRN Reason: CONGESTION Senna/Docusate Sodium (Senokot-S, Lola-Colace) 2 tablet PO BID PRN PRN Reason: constipation Sodium Chloride () 5 - 15 ml IV UD PRN PRN Reason: SALINE FLUSH Last Admin: 04/29/18 20:19 Dose: 10 ml Sodium Chloride ([place] Nasal [place]) 2 spray NASAL BID PRN PRN PRN Reason: NASAL DRYNESS Verapamil HCl (Calan Sr) 120 mg PO DAILY [facility] Zolpidem Tartrate (Ambien (Generic)) 5 mg PO QHS PRN PRN PRN Reason: INSOMNIA Medical Necessity - Tobacco Use Smoking Status: Current every day smoker Tobacco Use: Cigarettes Assessment/Plan All Active Problems Hypertensive emergency (Acute) Headache (Acute) Kidney failure (Acute) The patient is a 27 year old M came to ED with headache and blurry vision. Patient does not know his history of hypertension but in ED was found 190/127, heart rate 124/min, sinus tachycardia on monitor. Patient was given 2 doses of IV labetalol 10 mg but his blood pressure was still high 184/108, 179/134 and then decided to put on IV nicardipine drip and admitted in ICU. Patient is on verapamil by PCP for headache only once about 3 weeks ago. Is not any antihypertensive medication. He also lost about 15 pounds in last 6 months. Basic blood work in ER shows K3.4, creatinine 3.11, BUN 38. H&H 12.6/37.3. No previous labs to compare with. EKG shows normal sinus rhythm at 87 bpm with incomplete RBBB but no LVH. Chest x-ray reported normal Patient accepted smoking 1 pack/day since the age of 10 or 11. He also drinks alcohol and states has quit about 3-4 months ago because of headache. 1 hypertensive emergency with headache and blurry vision: CT head was done in the ER and reported normal. Patient was admitted in ICU and then been transferred to PCU. Nicardipine drip is discontinued. Dr. Olmos recommended Procardia and discontinue verapamil. 2D echo reported as normal LV size and function with mild LVH, EF of 65%, and mild pulmonary hypertension with an RVSP of approximately 42 mmHg. 2. Presumed acute kidney injury as there is no prior creatinine to compare: There is no previous labs to compare with. Onion Topper presumes acute kidney injury with possibility of undiagnosed CKD. Avoid nephrotoxic medication including KIZZY inhibitor, diuretics. Renal arterial Doppler reported as less than 60% stenosis bilateral renal arteries but normal aortic diameter with increased velocities making renal aortic ratios not reliable. Renal sonogram shows degenerative cortex of kidneys suggesting medical renal disease. UA shows protein 500 x, RBC 25-50 cells, LE 25. Urine random protein 488, sodium 73, creatinine 75. Discussed with the laborer pullet farm and he thinks there is high suspicion of glomerulonephritis as the patient has gross hematuria, hypertension and young age. He ordered complement, and, in 24-hour urine collection and those are pending. Possible kidney biopsy on Wednesday. 3. Headache and blurry vision: Patient will need to see manager corporate strategy as outpatient for Fundoscopy with dilated pupil. Fioricet. Verapamil discontinued 4. DVT prophylaxis: Low risk. Early ambulation encouraged. Active Medications Acetaminophen (Tylenol) 650 mg PO Q4H PRN PRN PRN Reason: HEADACHE Acetaminophen/Butalbital/Caffeine (Fioricet) 1 - 2 tablet PO Q4H PRN PRN PRN Reason: moderate to severe headache Last Admin: 04/30/18 14:41 Dose: 2 tablet Al Hydroxide/Mg Hydroxide (Mylanta Ii) 30 ml PO Q6H PRN PRN PRN Reason: Gastric burning Hydralazine HCl (Apresoline Iv) 10 mg IV Q4H PRN PRN Reason: hypertension Hydralazine HCl (Apresoline) 25 mg PO TID [facility] Last Admin: 04/30/18 14:36 Dose: 25 mg Magnesium Hydroxide (Milk Of Magnesia) 30 ml PO DAILY PRN PRN PRN Reason: Constipation Metoprolol Tartrate (Lopressor (Beta Ronnie)) 25 mg PO BID [facility] Last Admin: 04/30/18 08:58 Dose: 25 mg Nicotine (Nicoderm Cq (Pbkc)) 21 mg TRANSDERM. DAILY BON Last Admin: 04/30/18 08:58 Dose: 21 mg Nifedipine (Procardia Xl) 60 mg PO DAILY BON Ondansetron HCl (Zofran) 4 mg IV Q8H PRN PRN PRN Reason: NAUSEA Last Admin: 04/29/18 20:19 Dose: 4 mg Senna/Docusate Sodium (Senokot-S, Lola-Colace) 2 tablet PO BID PRN PRN Reason: constipation Sodium Chloride () 5 - 15 ml IV UD PRN PRN Reason: SALINE FLUSH Last Admin: 04/29/18 20:19 Dose: 10 ml Sodium Chloride ([place] Nasal [place]) 2 spray NASAL BID PRN PRN PRN Reason: NASAL DRYNESS Zolpidem Tartrate (Ambien (Generic)) 5 mg PO QHS PRN PRN PRN Reason: INSOMNIA Clinical Impression(s) from Imaging Studies Brain CT 04/29/18 09:15 IMPRESSION: Normal unenhanced CT scan of the brain. Chest X-Ray 04/29/18 12:00 IMPRESSION: Normal x-ray examination of the chest. Renal Ultrasound 04/29/18 13:17 IMPRESSION: Degenerative cortex of the kidneys suggesting medical renal disease. Code Visit Inpatient E&M: 97223 Subs Hosp L3
[2018-04-30] MEDS: Verapamil SR 240 MG Tablet 120 MG PO (08:57)
[2018-04-30] MEDS: Metoprolol Tartrate 25 MG Tablet PO ×2 (08:58→21:11)
--- NOTE | 2018-04-30 09:17 | CM.UR ---
TANK BRICENO ASSESSMENT Face to Face with patient for initial transition planning/care coordination assessment. TANK BRICENO introduced self and role at [facility]. Pt voices understanding and consents to assessment at this time. Patient sitting in chair without distress at this time. Pt is A/O at this time and answers all questions appropriately. Care providers, pharmacy, and demographics verified/updated at this time. PCP: Dali--just recently established with him. Preferred Pharmacy: [facility] ([place]) Living Will/HPOA: States does not have LW or HCPOA . Ok with parents being decision maker at this time should it be necessary. Accepted booklet with information about advance directives but no interest in completing anything at this point. LNOK: Parents. Living Arrangements: Lives with Girlfriend and 1 young child w/second on way. ADLS: no assistance needed for ADLs or IADLs prior to admission and not anticipation of needing help after discharge. Transportation: Pt states drives self and states no transportation concerns at this time. DME/HHC: Denies using any DME and denies needs. States has never used HHC or been to a nursing facility. Pt wishes to return home and states has no concerns with going home at time of discharge. Instructed case mgmt will remain available should any needs arise. Verb understanding. Plan: Home, no needs anticipated. Kenan Sosa RN, [facility].
[2018-04-30] MEDS: amLODIPine 10 MG Tablet PO (10:13)
--- NOTE | 2018-04-30 10:16 | PCM.CONS.C ---
Problem List (1) Hypertensive emergency Status: Acute Reason for Consult Date of Consultation: 04/30/18 Reason for Consultation: Hypertensive emergency History of Present Illness: The patient is a 27 year old M, with no previous past medical history, current smoker 1 pack/day for about 10 years time, no previous known coronary disease, does have a history of hypertension, and rare alcohol use. Patient works in a [employer] lifting very heavy boxes, and a very cold environment. About 1 month ago, the patient noted new onset hematuria with a absence of renal colicky pain, and brushed it off his possible kidney stone that passed. Subsequent to that the patient began developing fatigue, shortness of breath, and decreased activity at work. Patient then noted additional hematuria and then developed severe headache and blurry vision. Patient sought medical attention at [facility] and his blood pressure was found to be 219/135. He was also found to have markedly elevated creatinine of 3.1, which increased to 3.7. Nephrology consult was obtained, and it was felt the patient may have a nephritis and is going to undergo biopsy this upcoming Wednesday. Patient's blood pressure has been managed by primary care service in conjunction with nephrology, and cardiac consultation was mandated due to hypertensive urgency guidelines. Patient was initially placed on a Cardene drip with IV labetalol, and his drip is now been discontinued. His blood pressures have improved but are not quite optimized. His echocardiogram shows normal LV size and function with mild LVH, EF of 65%, and mild pulmonary hypertension with an RVSP of approximately 42 mmHg. Prior to his event he denied any chest pain, angina, fevers, chills, nausea or vomiting. He declines any intravenous drug use. Patient is currently resting comfortably. No acute distress. [] Past Medical History Allergies/Adverse Reactions: Allergies codeine Allergy (Verified 04/29/18 08:48) Rash Home Medications: Ambulatory Orders Medication Instructions Recorded Verapamil HCl [Verapamil ER] 1 tab PO DAILY 04/29/18 - *Family History Maternal History Items: Hypertension Smoking Status: Current every day smoker Tobacco Use: Cigarettes Review of Systems - Review of Systems General: Denies: Fever, Night Sweats, Fatigue Cardiovascular: Denies: Chest Discomfort, Shortness of Breath, Orthopnea, PND, Peripheral Edema, Palpitations, Lightheadedness, Dizziness, Near Syncope, Syncope Respiratory: Denies: Cough, Sputum Production, Hemoptysis Gastrointestinal: Denies: Hematemesis, Hematochezia, Melena Genitourinary: Denies: Dysuria, Hematuria Skin: Denies: Rash Subjectve: Patient resting comfortably, no acute distress. Objective: Vital Signs Temp Pulse Resp BP Pulse Ox 98.4 F 84 16 166/117 H 100 04/30/18 08:00 04/30/18 09:00 04/30/18 09:00 04/30/18 09:00 04/30/18 09:00 Oxygen Flow Rate (L/min) 2 Oxygen Delivery Method Room Air Weight: 133 lb 9.602 oz Body Mass Index (BMI) 19.1 Intake and Output for Last 24 Hours 04/28/18 04/29/18 04/30/18 23:59 23:59 23:59 Intake Total 750 / 750 1000 / 1000 Output Total 600 / 600 875 / 875 Balance 150 / 150 125 / 125 General: Awake, Alert, Oriented x 3 HEENT: PERRL, EOMI, Sclera Non Icteric Neck: Supple, Good ROM, No Lymph Node Enlargement Lungs: Clear to auscultation Cardiovascular: Regular Rhythm, Normal S1, Normal S2, No Murmurs, No Rubs, No Gallops Vascular: No Carotid Bruits, Normal Femoral Pulses, Normal Radial Pulses, Normal Dorsalis Pedal Pulse, Normal Posterior Tibial Pulses Abdomen: Bowel Sounds Present, Soft, Non Tender, No HSM, No Organomegaly Extremities: No Cyanosis, No Clubbing, No edema Neurological: No Focal Motor or Sensory Deficit 04/29/18 09:30: WBC 10.9, RBC 4.01 L, Hgb 12.6 L, Hct 37.3 L, MCV 93.0, MCH 31.4, MCHC 33.8, RDW 12.4, RDW Differential 42.5, Plt Count 357, MPV 10.1 04/29/18 09:30: Magnesium 2.2, Total Bilirubin 0.90, Direct Bilirubin 0.16 04/29/18 13:55: Troponin I 0.016 04/29/18 14:05: Urine Color Yellow, Urine Clarity Sl. Cloudy, Urine pH 6.0, Ur Specific [employer] 1.015, Urine Protein 500 H, Urine Glucose (UA) Normal, Urine Ketones Negative, Urine Occult Blood 250 H, Urine Nitrite Negative, Urine Bilirubin Negative, Urine Urobilinogen Normal, Ur Leukocyte Esterase 25 H, Urine RBC 25-50 SEEN, Urine WBC 0-5 SEEN 04/30/18 04:09: Sodium 140, Potassium 4.2, Chloride 106, Carbon Dioxide 25.0, Anion Gap 9, BUN 34 H, Creatinine 3.37 H, Est GFR (MDRD) Af Amer 28 L, Est GFR (MDRD) Non-Af 23 L, BUN/Creatinine Ratio 10.1, Glucose 100, Calcium 8.4 L Rhythm: EKG: Normal sinus rhythm, no acute changes. Borderline LVH by voltage. ECHO: Stress Test: Cardiac Cath: PCI: CT Surgery: Holter monitor: EPS: PPM: CXR: Chest CT Scan: Assessment/Plan 1. Hypertensive emergency: Patient's blood pressure was markedly elevated superimposed upon acute renal failure, and hematuria possibly related to nephritis of some kind. The patient denies any fevers, chills, or recent flulike illnesses. His echocardiogram shows mild LVH with an EF around 65%, and at least mild pulmonary hypertension with an RVSP of 42 mmHg. At this point the patient is being managed with antihypertensive therapy including amlodipine, hydralazine p.o., verapamil and metoprolol. Would not recommend diuretic therapy at this time given the patient's acute renal failure. I would recommend discontinuation of verapamil and switching him to nifedipine which has less of a bradycardic response as we are also using metoprolol. Would recommend titrating up his hydralazine as indicated to slowly reduce his blood pressure. Would recommend holding it a systolic blood pressure around 150. I do not believe the patient requires a stress test at this time given his young age, lack of troponins, lack of EKG changes, and lack of anginal symptoms. Patient is undergoing a 24-hour urine for catecholamines and we await those results. 2. Thank you very much for the opportunity to participate in the cardiac care of your patient. Consultation time took place between 9 AM and 9:30 AM. Code Visit Inpatient E&M: 47039 Init Hosp L2
--- NOTE | 2018-04-30 18:13 | PN.RENAL_ITS ---
Patient Problems: Active and Suspected Problems Hypertensive emergency (Acute) Headache (Acute) Kidney failure (Acute) Subjective: Following for YAMILET. Pt still has headache. Vision is imrpobed. He denies CP, SOB or nausea. No edema. - Physical Exam General: Alert, Oriented x3 HEENT: Atraumatic, Normocephalic Oral: Moist Mucosa Neck: Supple Lungs: Clear to auscultation Cardiovascular: Normal S1, Normal S2, No murmurs Abdomen: Bowel Sounds Present, Soft, Non Tender Extremities: No edema Vital Signs Temp Pulse Resp BP Pulse Ox 99.9 F H 98 16 149/103 H 96 04/30/18 17:00 04/30/18 17:00 04/30/18 17:00 04/30/18 17:00 04/30/18 17:00 Oxygen Flow Rate (L/min) 2 Oxygen Delivery Method Room Air Weight: 60.6 kg Body Mass Index (BMI) 19.1 Intake and Output for Last 24 Hours 04/28/18 04/29/18 04/30/18 23:59 23:59 23:59 Intake Total 750 / 750 1000 / 1000 Output Total 600 / 600 875 / 875 Balance 150 / 150 125 / 125 Laboratory Tests Past 24 Hrs 04/30/18 04/30/18 04:09 17:00 Sodium 140 Potassium 4.2 Chloride 106 Carbon Dioxide 25.0 Anion Gap 9 BUN 34 H Creatinine 3.37 H Estim Creat Clear Calc 27.72 Est GFR (MDRD) Af Amer 28 L Est GFR (MDRD) Non-Af 23 L BUN/Creatinine Ratio 10.1 Glucose 100 Calcium 8.4 L Ur Collection Duration Pending Urine Total Volume Pending Urine Creatinine Pending Ur Creatinine 24 Hour Pending Medical Necessity - Tobacco Use Smoking Status: Current every day smoker Tobacco Use: Cigarettes Assessment/Plan All Active Problems Hypertensive emergency (Acute) Headache (Acute) Kidney failure (Acute) 1. Acute kidney injury. Presumed YAMILET since there is no prior SCr for comparison. Undiagnosed CKD is possible. Kidney size is normal without evidence of obstruction. Urine protein to creatinine ratio is 6.5 g/g. Serologies pending. SCr increased in the past 24 hrs, but pt is not overtly uremic. There is no urgent need for kidney replacement therapy (dialysis) at this time. I would recommend a kidney biopsy on Wednesday05/02/18, especailly if SCr continues to increase. Will need to get BP better controlled prior to the biopsy to avoid bleeding. Will also check PT/PTT in am. Current medications were reviewed and are appropriately dosed for current renal function. 2. Hypertension. Difficult to tell if HTN is the cause of renal failure or if renal failure has led to difficult to control BP at this point. Nevertheless, treatment of HTN will help decrease injury to the kidneys. Agree with nicardipine gtt. Will defer titration of BP medications to supervisor counseling and guidance to avoid confusion.
[2018-04-30 18:14] LABS: 24HR. Urine Creatinine 1.87 g/24 HR (0.90-2.10)
[2018-05-01] VITALS (21 sets, daily range): BP systolic 135–160; BP diastolic 84–114; PULSE 77–103; RESP 14–18; TEMP 36.6–37.4; O2SAT 96–98
[2018-05-01] MEDS: hydrALAZINE 25 MG Tablet PO ×2 (05:33→07:51)
[2018-05-01] MEDS: 0.9% NaCl Peripheral Flush Adult/Peds IV (05:34)
[2018-05-01 06:10] LABS: Absolute Lymphocyte Count 1.32 X10^3/ul (0.83-4.51); Basophil# 0.07 X10^3/uL; Eosinophil# 0.01 X10^3/uL; Eosinophils% 0.1 % (0-5); Hematocrit 37.2 % (40-54); Hemoglobin 12.2 g/dl (13.0-16.5); Lymphocyte # 1.32 X10^3/ul (4.0); Lymphocyte % 18.5 % (19-41); Mean Corp Hgb Conc 32.8 g/gl (32-36); Mean Corpuscular Hgb 30.8 pg (27.0-32.0); Mean Corpuscular Volume 93.9 fL (80-94); Mean Platelet Vol. 10.3 fl (6.2-12.0); Monocyte# 0.73 X10^3/uL; Monocyte% 10.2 % (0-10); Neutrophil % 70.1 % (47-70); Platelet Count 237 K/mm3 (150-450); RBC Distribution Width CV 12.8 % (11.6-14.6); RBC Distribution Width SD 44.2 fl (35.1-43.9); Red Blood Count 3.96 M/mm3 (4.6-6.2); White Blood Count 7.1 K/mm3 (4.4-11.0)
[2018-05-01 06:14] LABS: POSITIVE COUNT NO; POSITIVE DIFFERENTIAL NO; POSITIVE MORPHOLOGY NO
[2018-05-01 06:29] LABS: International Normalized Ratio 1.1; Partial Thromboplast Time 36.7 Seconds (24.1-36.2); Prothrombin Time (Protime)PT. 13.7 SECONDS (11.7-14.9)
[2018-05-01 06:30] LABS: Anion Gap 8 (5-15); BUN 39 mg/dL (7-18); BUN/Creat Ratio 10.7 RATIO (10-20); Calcium,Total 8.7 mg/dL (8.5-10.1); Chloride 105 mmol/L (98-107); Creatinine, Serum 3.63 mg/dL (0.70-1.30); EST Glomerular Filtration Rate 21 mL/min (>60); Est Glom Filt Rate - Afr Amer 26 mL/min (>60); Estimated Creatinine Clearance 25.44 ml/min; Glucose 94 mg/dL (74-106); Potassium 4.3 mmol/L (3.5-5.1); Sodium Level 137 mmol/L (136-145)
[2018-05-01] MEDS: Acetaminophen/Butalbital/Caffe 1 Tablet PO (07:49)
[2018-05-01] MEDS: Metoprolol Tartrate 25 MG Tablet PO ×2 (07:50→21:45)
[2018-05-01] MEDS: NIFEdipine 60 MG Tablet PO ×2 (07:52→19:54)
--- NOTE | 2018-05-01 08:20 | PCM.PN.HOSP ---
Patient Problems: Active and Suspected Problems Hypertensive emergency (Acute) Headache (Acute) Kidney failure (Acute) Subjective: Patient systolic blood pressure is controlled on 150s but diastolic is still high 100-115. Patient states his urine is cleared. Creatinine is still high 3.63 and is getting worse. Vitals/I&O's: Vital Signs Temp Pulse Resp BP Pulse Ox 98.8 F 88 18 150/114 H 98 05/01/18 08:11 05/01/18 08:11 05/01/18 08:11 05/01/18 08:11 05/01/18 08:11 Oxygen Flow Rate (L/min) 2 Oxygen Delivery Method Room Air Weight: 132 lb 0.91 oz Body Mass Index (BMI) 19.1 Intake and Output for Last 24 Hours 04/29/18 04/30/18 05/01/18 23:59 23:59 23:59 Intake Total 750 / 750 2610 / 2610 450 / 450 Output Total 600 / 600 2225 / 2225 700 / 700 Balance 150 / 150 385 / 385 -250 / -250 General: Alert, Oriented x3, Cooperative HEENT: Atraumatic, PERRLA, EOMI, Normocephalic Oral: Moist Mucosa Neck: Supple, No JVD, Negative Carotid Bruits Lungs: Clear to auscultation, Normal air movement, No rhonchi, No wheeze, No rales Cardiovascular: Regular rate, Regular Rhythm, Normal S1, Normal S2, No murmurs Abdomen: Bowel Sounds Present, Soft, Non Tender, Non-Distended Extremities: No edema, Capillary Refill Less than 3 Seconds Skin: No rashes, No breakdown Musculoskeletal: No Tenderness to Palpation of Joints or Extremities, Arthritic Changes Neurological: Cranial nerves II-XII grossly intact, Deep Tendon Reflexes 2+/4 and Symmetrical, Neuro grossly intact, Motor Exam 5/5 strength throughout Psych/Mental Status: Normal Affect, Appropriate Laboratory Results 04/30/18 17:00: Ur Collection Duration 24.0, Urine Total Volume 2.00, Urine Creatinine 92.30, Ur Creatinine 24 Hour 1.87 05/01/18 05:35: WBC 7.1, RBC 3.96 L, Hgb 12.2 L, Hct 37.2 L, MCV 93.9, MCH 30.8, MCHC 32.8, RDW 12.8, RDW Differential 44.2 H, Plt Count 237, MPV 10.3, Immature Gran % (Auto) 0.100, Neut % (Auto) 70.1 H, Lymph % (Auto) 18.5 L, [place] % (Auto) 10.2 H, Eos % (Auto) 0.1, Baso % (Auto) 1.0, Absolute Neuts (auto) 5.0, Absolute Lymphs (auto) 1.32, Total Counted Not Reportable 05/01/18 05:35: Sodium 137, Potassium 4.3, Chloride 105, Carbon Dioxide 24.0, Anion Gap 8, BUN 39 H, Creatinine 3.63 H, Estim Creat Clear Calc 25.44, Est GFR (MDRD) Af Amer 26 L, Est GFR (MDRD) Non-Af 21 L, BUN/Creatinine Ratio 10.7, Glucose 94, Calcium 8.7 05/01/18 05:35: PT 13.7, INR 1.1, APTT 36.7 H Current Medications Acetaminophen (Tylenol) 650 mg PO Q4H PRN PRN PRN Reason: HEADACHE Acetaminophen/Butalbital/Caffeine (Fioricet) 1 - 2 tablet PO Q4H PRN PRN PRN Reason: moderate to severe headache Last Admin: 05/01/18 07:49 Dose: 2 tablet Al Hydroxide/Mg Hydroxide (Mylanta Ii) 30 ml PO Q6H PRN PRN PRN Reason: Gastric burning Hydralazine HCl (Apresoline Iv) 10 mg IV Q4H PRN PRN Reason: hypertension Hydralazine HCl (Apresoline) 50 mg PO TID [facility], [facility] Sodium Chloride () 1,000 mls @ 50 mls/hr IV .Q20H [facility], [facility]1983 Magnesium Hydroxide (Milk Of Magnesia) 30 ml PO DAILY PRN PRN PRN Reason: Constipation Metoprolol Tartrate (Lopressor (Beta Ronnie)) 25 mg PO BID [facility], [facility]1983 Last Admin: 05/01/18 07:50 Dose: 25 mg Nicotine (Nicoderm Cq (Pbkc)) 21 mg TRANSDERM. DAILY [facility], [facility] Last Admin: 05/01/18 07:49 Dose: 21 mg Nifedipine (Procardia Xl) 60 mg PO DAILY [facility] Last Admin: 05/01/18 07:52 Dose: 60 mg Ondansetron HCl (Zofran) 4 mg IV Q8H PRN PRN PRN Reason: NAUSEA Last Admin: 04/29/18 20:19 Dose: 4 mg Senna/Docusate Sodium (Senokot-S, Lola-Colace) 2 tablet PO BID PRN PRN Reason: constipation Sodium Chloride () 5 - 15 ml IV UD PRN PRN Reason: SALINE FLUSH Last Admin: 05/01/18 05:34 Dose: 10 ml Sodium Chloride ([place] Nasal [place]) 2 spray NASAL BID PRN PRN PRN Reason: NASAL DRYNESS Zolpidem Tartrate (Ambien (Generic)) 5 mg PO QHS PRN PRN PRN Reason: INSOMNIA Medical Necessity - Tobacco Use Smoking Status: Current every day smoker Tobacco Use: Cigarettes Assessment/Plan All Active Problems Hypertensive emergency (Acute) Headache (Acute) Kidney failure (Acute) The patient is a 27 year old M came to ED with headache and blurry vision. Patient does not know his history of hypertension but in ED was found 190/127, heart rate 124/min, sinus tachycardia on monitor. Patient was given 2 doses of IV labetalol 10 mg but his blood pressure was still high 184/108, 179/134 and then decided to put on IV nicardipine drip and admitted in ICU. Patient is on verapamil by PCP for headache only once about 3 weeks ago. Is not any antihypertensive medication. He also lost about 15 pounds in last 6 months. Basic blood work in ER shows K3.4, creatinine 3.11, BUN 38. H&H 12.6/37.3. No previous labs to compare with. EKG shows normal sinus rhythm at 87 bpm with incomplete RBBB but no LVH. Chest x-ray reported normal Patient accepted smoking 1 pack/day since the age of 10 or 11. He also drinks alcohol and states has quit about 3-4 months ago because of headache. 1 hypertensive emergency with headache and blurry vision: CT head was done in the ER and reported normal. Patient was admitted in ICU and then been transferred to PCU. Nicardipine drip is discontinued. Dr. Olmos recommended Procardia and discontinue verapamil. 2D echo reported as normal LV size and function with mild LVH, EF of 65%, and mild pulmonary hypertension with an RVSP of approximately 42 mmHg. Patient's diastolic blood pressure is still elevated. Procardia dose 60 mg daily. If blood pressure continues to be high, especially diastolic repeat the dose of Procardia in the evening. Hydralazine increased to 50 mg 3 times daily. 2. Presumed acute kidney injury as there is no prior creatinine to compare: There is no previous labs to compare with. Worship Leader presumes acute kidney injury with possibility of undiagnosed CKD. Avoid nephrotoxic medication including KIZZY inhibitor, diuretics. Renal arterial Doppler reported as less than 60% stenosis bilateral renal arteries but normal aortic diameter with increased velocities making renal aortic ratios not reliable. Renal sonogram shows degenerative cortex of kidneys suggesting medical renal disease. UA shows protein 500 x, RBC 25-50 cells, LE 25. Urine random protein 488, sodium 73, creatinine 75. Discussed with the senior test engineer and he thinks there is high suspicion of glomerulonephritis as the patient has gross hematuria, hypertension and young age. He ordered complement, and, in 24-hour urine collection and those are pending. Possible kidney biopsy on Wednesday. 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 3. Headache and blurry vision: Patient will need to see electrotyper helper as outpatient for Fundoscopy with dilated pupil. Fioricet. Verapamil discontinued 4. DVT prophylaxis: Low risk. Early ambulation encouraged. Active Medications Acetaminophen (Tylenol) 650 mg PO Q4H PRN PRN PRN Reason: HEADACHE Acetaminophen/Butalbital/Caffeine (Fioricet) 1 - 2 tablet PO Q4H PRN PRN PRN Reason: moderate to severe headache Last Admin: 05/01/18 07:49 Dose: 2 tablet Al Hydroxide/Mg Hydroxide (Mylanta Ii) 30 ml PO Q6H PRN PRN PRN Reason: Gastric burning Hydralazine HCl (Apresoline Iv) 10 mg IV Q4H PRN PRN Reason: hypertension Hydralazine HCl (Apresoline) 50 mg PO TID [facility] Sodium Chloride () 1,000 mls @ 50 mls/hr IV .Q20H [place] Magnesium Hydroxide (Milk Of Magnesia) 30 ml PO DAILY PRN PRN PRN Reason: Constipation Metoprolol Tartrate (Lopressor (Beta Ronnie)) 25 mg PO BID [facility] Last Admin: 05/01/18 07:50 Dose: 25 mg Nicotine (Nicoderm Cq (Pbkc)) 21 mg TRANSDERM. DAILY [facility] Last Admin: 05/01/18 07:49 Dose: 21 mg Nifedipine (Procardia Xl) 60 mg PO DAILY [place] Last Admin: 05/01/18 07:52 Dose: 60 mg Ondansetron HCl (Zofran) 4 mg IV Q8H PRN PRN PRN Reason: NAUSEA Last Admin: 04/29/18 20:19 Dose: 4 mg Senna/Docusate Sodium (Senokot-S, Lola-Colace) 2 tablet PO BID PRN PRN Reason: constipation Sodium Chloride () 5 - 15 ml IV UD PRN PRN Reason: SALINE FLUSH Last Admin: 05/01/18 05:34 Dose: 10 ml Sodium Chloride ([place] Nasal [place]) 2 spray NASAL BID PRN PRN PRN Reason: NASAL DRYNESS Zolpidem Tartrate (Ambien (Generic)) 5 mg PO QHS PRN PRN PRN Reason: INSOMNIA Laboratory Results 04/30/18 17:00: Ur Collection Duration 24.0, Urine Total Volume 2.00, Urine Creatinine 92.30, Ur Creatinine 24 Hour 1.87 05/01/18 05:35: WBC 7.1, RBC 3.96 L, Hgb 12.2 L, Hct 37.2 L, MCV 93.9, MCH 30.8, MCHC 32.8, RDW 12.8, RDW Differential 44.2 H, Plt Count 237, MPV 10.3, Immature Gran % (Auto) 0.100, Neut % (Auto) 70.1 H, Lymph % (Auto) 18.5 L, [place] % (Auto) 10.2 H, Eos % (Auto) 0.1, Baso % (Auto) 1.0, Absolute Neuts (auto) 5.0, Absolute Lymphs (auto) 1.32, Total Counted Not Reportable 05/01/18 05:35: Sodium 137, Potassium 4.3, Chloride 105, Carbon Dioxide 24.0, Anion Gap 8, BUN 39 H, Creatinine 3.63 H, Estim Creat Clear Calc 25.44, Est GFR (MDRD) Af Amer 26 L, Est GFR (MDRD) Non-Af 21 L, BUN/Creatinine Ratio 10.7, Glucose 94, Calcium 8.7 05/01/18 05:35: PT 13.7, INR 1.1, APTT 36.7 H Clinical Impression(s) from Imaging Studies Brain CT 04/29/18 09:15 IMPRESSION: Normal unenhanced CT scan of the brain. Chest X-Ray 04/29/18 12:00 IMPRESSION: Normal x-ray examination of the chest. Renal Ultrasound 04/29/18 13:17 IMPRESSION: Degenerative cortex of the kidneys suggesting medical renal disease. Code Visit Inpatient E&M: 53527 Subs Hosp L3
--- NOTE | 2018-05-01 08:24 | PN_ITS ---
Patient Problems: Active and Suspected Problems Hypertensive emergency (Acute) Headache (Acute) Kidney failure (Acute) Subjective: Patient systolic blood pressure is controlled on 150s but diastolic is still high 100-115. Patient states his urine is cleared. Creatinine is still high 3.63 and is getting worse. Vitals/I&O's: Vital Signs Temp Pulse Resp BP Pulse Ox 98.8 F 88 18 150/114 H 98 05/01/18 08:11 05/01/18 08:11 05/01/18 08:11 05/01/18 08:11 05/01/18 08:11 Oxygen Flow Rate (L/min) 2 Oxygen Delivery Method Room Air Weight: 132 lb 0.91 oz Body Mass Index (BMI) 19.1 Intake and Output for Last 24 Hours 04/29/18 04/30/18 05/01/18 23:59 23:59 23:59 Intake Total 750 / 750 2610 / 2610 450 / 450 Output Total 600 / 600 2225 / 2225 700 / 700 Balance 150 / 150 385 / 385 -250 / -250 General: Alert, Oriented x3, Cooperative HEENT: Atraumatic, PERRLA, EOMI, Normocephalic Oral: Moist Mucosa Neck: Supple, No JVD, Negative Carotid Bruits Lungs: Clear to auscultation, Normal air movement, No rhonchi, No wheeze, No rales Cardiovascular: Regular rate, Regular Rhythm, Normal S1, Normal S2, No murmurs Abdomen: Bowel Sounds Present, Soft, Non Tender, Non-Distended Extremities: No edema, Capillary Refill Less than 3 Seconds Skin: No rashes, No breakdown Musculoskeletal: No Tenderness to Palpation of Joints or Extremities, Arthritic Changes Neurological: Cranial nerves II-XII grossly intact, Deep Tendon Reflexes 2+/4 and Symmetrical, Neuro grossly intact, Motor Exam 5/5 strength throughout Psych/Mental Status: Normal Affect, Appropriate Laboratory Results 04/30/18 17:00: Ur Collection Duration 24.0, Urine Total Volume 2.00, Urine Creatinine 92.30, Ur Creatinine 24 Hour 1.87 05/01/18 05:35: WBC 7.1, RBC 3.96 L, Hgb 12.2 L, Hct 37.2 L, MCV 93.9, MCH 30.8, MCHC 32.8, RDW 12.8, RDW Differential 44.2 H, Plt Count 237, MPV 10.3, Immature Gran % (Auto) 0.100, Neut % (Auto) 70.1 H, Lymph % (Auto) 18.5 L, [place] % (Auto) 10.2 H, Eos % (Auto) 0.1, Baso % (Auto) 1.0, Absolute Neuts (auto) 5.0, Absolute Lymphs (auto) 1.32, Total Counted Not Reportable 05/01/18 05:35: Sodium 137, Potassium 4.3, Chloride 105, Carbon Dioxide 24.0, Anion Gap 8, BUN 39 H, Creatinine 3.63 H, Estim Creat Clear Calc 25.44, Est GFR (MDRD) Af Amer 26 L, Est GFR (MDRD) Non-Af 21 L, BUN/Creatinine Ratio 10.7, Glucose 94, Calcium 8.7 05/01/18 05:35: PT 13.7, INR 1.1, APTT 36.7 H Current Medications Acetaminophen (Tylenol) 650 mg PO Q4H PRN PRN PRN Reason: HEADACHE Acetaminophen/Butalbital/Caffeine (Fioricet) 1 - 2 tablet PO Q4H PRN PRN PRN Reason: moderate to severe headache Last Admin: 05/01/18 07:49 Dose: 2 tablet Al Hydroxide/Mg Hydroxide (Mylanta Ii) 30 ml PO Q6H PRN PRN PRN Reason: Gastric burning Hydralazine HCl (Apresoline Iv) 10 mg IV Q4H PRN PRN Reason: hypertension Hydralazine HCl (Apresoline) 50 mg PO TID [facility] Sodium Chloride () 1,000 mls @ 50 mls/hr IV .Q20H [facility] Magnesium Hydroxide (Milk Of Magnesia) 30 ml PO DAILY PRN PRN PRN Reason: Constipation Metoprolol Tartrate (Lopressor (Beta Ronnie)) 25 mg PO BID [facility] Last Admin: 05/01/18 07:50 Dose: 25 mg Nicotine (Nicoderm Cq (Pbkc)) 21 mg TRANSDERM. DAILY [facility] Last Admin: 05/01/18 07:49 Dose: 21 mg Nifedipine (Procardia Xl) 60 mg PO DAILY [facility] Last Admin: 05/01/18 07:52 Dose: 60 mg Ondansetron HCl (Zofran) 4 mg IV Q8H PRN PRN PRN Reason: NAUSEA Last Admin: 04/29/18 20:19 Dose: 4 mg Senna/Docusate Sodium (Senokot-S, Lola-Colace) 2 tablet PO BID PRN PRN Reason: constipation Sodium Chloride () 5 - 15 ml IV UD PRN PRN Reason: SALINE FLUSH Last Admin: 05/01/18 05:34 Dose: 10 ml Sodium Chloride ([place] Nasal [place]) 2 spray NASAL BID PRN PRN PRN Reason: NASAL DRYNESS Zolpidem Tartrate (Ambien (Generic)) 5 mg PO QHS PRN PRN PRN Reason: INSOMNIA Medical Necessity - Tobacco Use Smoking Status: Current every day smoker Tobacco Use: Cigarettes Assessment/Plan All Active Problems Hypertensive emergency (Acute) Headache (Acute) Kidney failure (Acute) The patient is a 27 year old M came to ED with headache and blurry vision. Patient does not know his history of hypertension but in ED was found 190/127, heart rate 124/min, sinus tachycardia on monitor. Patient was given 2 doses of IV labetalol 10 mg but his blood pressure was still high 184/108, 179/134 and then decided to put on IV nicardipine drip and admitted in ICU. Patient is on verapamil by PCP for headache only once about 3 weeks ago. Is not any antihypertensive medication. He also lost about 15 pounds in last 6 months. Basic blood work in ER shows K3.4, creatinine 3.11, BUN 38. H&H 12.6/37.3. No previous labs to compare with. EKG shows normal sinus rhythm at 87 bpm with incomplete RBBB but no LVH. Chest x-ray reported normal Patient accepted smoking 1 pack/day since the age of 10 or 11. He also drinks alcohol and states has quit about 3-4 months ago because of headache. 1 hypertensive emergency with headache and blurry vision: CT head was done in the ER and reported normal. Patient was admitted in ICU and then been transferred to PCU. Nicardipine drip is discontinued. Dr. Olmos recommended Procardia and discontinue verapamil. 2D echo reported as normal LV size and f unction with mild LVH, EF of 65%, and mild pulmonary hypertension with an RVSP of approximately 42 mmHg. Patient's diastolic blood pressure is still elevated. Procardia dose 60 mg daily. If blood pressure continues to be high, especially diastolic repeat the dose of Procardia in the evening. Hydralazine increased to 50 mg 3 times daily. 2. Presumed acute kidney injury as there is no prior creatinine to compare: There is no previous labs to compare with. Gear Repair Supervisor presumes acute kidney injury with possibility of undiagnosed CKD. Avoid nephrotoxic medication including KIZZY inhibitor, diuretics. Renal arterial Doppler reported as less than 60% stenosis bilateral renal arteries but normal aortic diameter with increased velocities making renal aortic ratios not reliable. Renal sonogram shows degenerative cortex of kidneys suggesting medical renal disease. UA shows protein 500 x, RBC 25-50 cells, LE 25. Urine random protein 488, sodium 73, creatinine 75. Discussed with the loss mitigation specialist and he thinks there is high suspicion of glomerulonephritis as the patient has gross hematuria, hypertension and young age. He ordered complement, and, in 24-hour urine collection and those are pending. Possible kidney biopsy on Wednesday. 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 3. Headache and blurry vision: Patient will need to see repossession agent as outpatient for Fundoscopy with dilated pupil. Fioricet. Verapamil discontinued 4. DVT prophylaxis: Low risk. Early ambulation encouraged. Active Medications Acetaminophen (Tylenol) 650 mg PO Q4H PRN PRN PRN Reason: HEADACHE Acetaminophen/Butalbital/Caffeine (Fioricet) 1 - 2 tablet PO Q4H PRN PRN PRN Reason: moderate to severe headache Last Admin: 05/01/18 07:49 Dose: 2 tablet Al Hydroxide/Mg Hydroxide (Mylanta Ii) 30 ml PO Q6H PRN PRN PRN Reason: Gastric burning Hydralazine HCl (Apresoline Iv) 10 mg IV Q4H PRN PRN Reason: hypertension Hydralazine HCl (Apresoline) 50 mg PO TID [facility] Sodium Chloride () 1,000 mls @ 50 mls/hr IV .Q20H [facility] Magnesium Hydroxide (Milk Of Magnesia) 30 ml PO DAILY PRN PRN PRN Reason: Constipation Metoprolol Tartrate (Lopressor (Beta Ronnie)) 25 mg PO BID [facility] Last Admin: 05/01/18 07:50 Dose: 25 mg Nicotine (Nicoderm Cq (Pbkc)) 21 mg TRANSDERM. DAILY [facility] Last Admin: 05/01/18 07:49 Dose: 21 mg Nifedipine (Procardia Xl) 60 mg PO DAILY [facility] Last Admin: 05/01/18 07:52 Dose: 60 mg Ondansetron HCl (Zofran) 4 mg IV Q8H PRN PRN PRN Reason: NAUSEA Last Admin: 04/29/18 20:19 Dose: 4 mg Senna/Docusate Sodium (Senokot-S, Lola-Colace) 2 tablet PO BID PRN PRN Reason: constipation Sodium Chloride () 5 - 15 ml IV UD PRN PRN Reason: SALINE FLUSH Last Admin: 05/01/18 05:34 Dose: 10 ml Sodium Chloride (Mingus Nasal [place]) 2 spray NASAL BID PRN PRN PRN Reason: NASAL DRYNESS Zolpidem Tartrate (Ambien (Generic)) 5 mg PO QHS PRN PRN PRN Reason: INSOMNIA Laboratory Results 04/30/18 17:00: Ur Collection Duration 24.0, Urine Total Volume 2.00, Urine Creatinine 92.30, Ur Creatinine 24 Hour 1.87 05/01/18 05:35: WBC 7.1, RBC 3.96 L, Hgb 12.2 L, Hct 37.2 L, MCV 93.9, MCH 30.8, MCHC 32.8, RDW 12.8, RDW Differential 44.2 H, Plt Count 237, MPV 10.3, Immature Gran % (Auto) 0.100, Neut % (Auto) 70.1 H, Lymph % (Auto) 18.5 L, [place] % (Auto) 10.2 H, Eos % (Auto) 0.1, Baso % (Auto) 1.0, Absolute Neuts (auto) 5.0, Absolute Lymphs (auto) 1.32, Total Counted Not Reportable 05/01/18 05:35: Sodium 137, Potassium 4.3, Chloride 105, Carbon Dioxide 24.0, Anion Gap 8, BUN 39 H, Creatinine 3.63 H, Estim Creat Clear Calc 25.44, Est GFR (MDRD) Af Amer 26 L, Est GFR (MDRD) Non-Af 21 L, BUN/Creatinine Ratio 10.7, Glucose 94, Calcium 8.7 05/01/18 05:35: PT 13.7, INR 1.1, APTT 36.7 H Clinical Impression(s) from Imaging Studies Brain CT 12/21/18 09:15 IMPRESSION: Normal unenhanced CT scan of the brain. Chest X-Ray 04/29/18 12:00 IMPRESSION: Normal x-ray examination of the chest. Renal Ultrasound 04/29/18 13:17 IMPRESSION: Degenerative cortex of the kidneys suggesting medical renal disease. Code Visit Inpatient E&M: 16852 Subs Hosp L3
--- NOTE | 2018-05-01 09:19 | PN.CARD_ITS ---
Subjectve: Patient complaint of headache this morning, blood pressure still elevated particularly diastolic blood pressure. First dose of Procardia this morning, and are increasing hydralazine this morning. No chest pain or angina. Objective: Vital Signs Temp Pulse Resp BP Pulse Ox 98.8 F 88 18 150/114 H 98 05/01/18 08:11 05/01/18 08:11 05/01/18 08:11 05/01/18 08:11 05/01/18 08:11 Oxygen Flow Rate (L/min) 2 Oxygen Delivery Method Room Air Weight: 132 lb 0.91 oz Body Mass Index (BMI) 19.1 Intake and Output for Last 24 Hours 04/29/18 04/30/18 05/01/18 23:59 23:59 23:59 Intake Total 750 / 750 2610 / 2610 450 / 450 Output Total 600 / 600 2225 / 2225 700 / 700 Balance 150 / 150 385 / 385 -250 / -250 General: Awake, Alert, Oriented x 3 HEENT: PERRL, EOMI, Sclera Non Icteric Neck: Supple, Good ROM, No Lymph Node Enlargement Lungs: Clear to auscultation Cardiovascular: Regular Rhythm, Normal S1, Normal S2, No Murmurs, No Rubs, No Gallops Vascular: No Carotid Bruits, Normal Femoral Pulses, Normal Radial Pulses, Normal Dorsalis Pedal Pulse, Normal Posterior Tibial Pulses Abdomen: Bowel Sounds Present, Soft, Non Tender, No HSM, No Organomegaly Extremities: No Cyanosis, No Clubbing, No edema Neurological: No Focal Motor or Sensory Deficit 05/01/18 05:35: WBC 7.1, RBC 3.96 L, Hgb 12.2 L, Hct 37.2 L, MCV 93.9, MCH 30.8, MCHC 32.8, RDW 12.8, RDW Differential 44.2 H, Plt Count 237, MPV 10.3, Immature Gran % (Auto) 0.100, Neut % (Auto) 70.1 H, Lymph % (Auto) 18.5 L, [place] % (Auto) 10.2 H, Eos % (Auto) 0.1, Baso % (Auto) 1.0, Absolute Neuts (auto) 5.0, Total Counted Not Reportable 05/01/18 05:35: Sodium 137, Potassium 4.3, Chloride 105, Carbon Dioxide 24.0, Anion Gap 8, BUN 39 H, Creatinine 3.63 H, Est GFR (MDRD) Af Amer 26 L, Est GFR (MDRD) Non-Af 21 L, BUN/Creatinine Ratio 10.7, Glucose 94, Calcium 8.7 05/01/18 05:35: PT 13.7, INR 1.1, APTT 36.7 H Rhythm: EKG: ECHO: EF 65%, RVSP of 42 mmHg. Stress Test: Cardiac Cath: PCI: CT Surgery: Holter monitor: EPS: PPM: CXR: Chest CT Scan: Medical Necessity - Tobacco Use Smoking Status: Current every day smoker Tobacco Use: Cigarettes Assessment/Plan 1. Hypertensive emergency: Patient's blood pressure was markedly elevated superimposed upon acute renal failure, and hematuria possibly related to nephritis of some kind. The patient denies any fevers, chills, or recent flulike illnesses. His echocardiogram shows mild LVH with an EF around 65%, and at least mild pulmonary hypertension with an RVSP of 42 mmHg. At this point the patient is being managed with antihypertensive therapy including nifedipine, hydralazine p.o.,and metoprolol. Would not recommend diuretic therapy at this time given the patient's acute renal failure. I would recommended discontinuation of verapamil and switching him to nifedipine which has less of a bradycardic response as we are also using metoprolol. Would recommend titrating up his hydralazine as indicated to slowly reduce his blood pressure. Would recommend holding it a systolic blood pressure around 150. I do not believe the patient requires a stress test at this time given his young age, lack of troponins, lack of EKG changes, and lack of anginal symptoms. Patient is undergoing a 24-hour urine for catecholamines and we await those results. It is permissible to increase hydralazine on a every 8 hours basis in order to maximize antihypertensive control. The patient's blood pressure will need to be optimized prior to any renal biopsy to avoid possible bleeding complication due to hypertension. If patient's blood pressures not optimized by tomorrow morning, he may require postponement of his biopsy. 2. Thank you very much for the opportunity to participate in the cardiac care of your patient. Discussed with Dr. Cyr. Code Visit Inpatient E&M: 39249 Subs Hosp L2
[2018-05-01] MEDS: 0.9% Normal Saline 1,000 ML 50 ML IV (10:00)
--- NOTE | 2018-05-01 14:55 | KI_PTH ---
PATIENT: AIMEE SILVA LOC: [facility] U#:[id number] AGE/SX: 27/M ROOM: [facility] RE04/29/[address]: Dr. Tony Owens MD : 1990 BED: 1 DIS: 05/04/2018 SPEC #: [id number] RECD: 05/01/18 15:19 STATUS: YEFRI REJhony #: [id number] SASHA: 05/01/18 14:[address]: Angeles Hamilton DEPT: SURGICAL PATHOLOGY RECD BY: Mario Trivedi ENTERED: 05/04/18 04:58 SP TYPE: KIDNEY BX OTHR DR: MD Dr. Ernesto Enciso MD Dr. Nicholas F Kotsonis, MD Dr. Natthavat Tanphaichitr, MD Dr. 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 COMMENT Taken together, the light, immunofluorescence and electron microscopy findings show striking diffuse global glomerulosclerosis (DGGS) along with severe chronic interstitial changes. The vessels are relatively unaffected. The single fibrous crescent suggests that there may have been some previous insult to the kidney as an underlying etiology. However, the etiology is not apparent from this biopsy given the extensive chronic changes and lack of active findings in glomeruli that remain. Clinical correlation is recommended. MICROSCOPIC DESCRIPTION A needle biopsy is available for review. There are approximately 11 glomeruli, 8 of which are globally sclerotic. One glomerulus appears to have a fibrous crescent. There are no cellular or fibrocellular crescents. Glomeruli also do not show segmental scars, necrosis, thrombosis or inflammation. PAS, silver and trichrome stains show no evidence of glomerular basement membrane double contours, spikes or fuchsinophilic immune-type deposits. There is severe interstitial fibrosis and tubular atrophy involving approximately 80% of the cortical area sampled. In areas of scars, there is dense lymphocytic inflammation. Tubules that are preserved show no evidence of casts or tubular injury. No crystals are appreciated. Arteries and arterioles show mild arterio- and arteriolosclerosis, respectively. IMMUNOFLUORESCENCE: The tissue submitted for immunofluorescence studies contain 2 glomeruli, 1 of which is globally sclerotic. IgG, IgA, IgM, C3, C1q, albumin and fibrinogen all show nonspecific staining. ELECTRON MICROSCOPY: The tissue submitted for electron microscopy contains 3 glomeruli, all of which are globally sclerotic. One sclerotic glomerulus and adjacent cortex is imaged. Ultrastructural examination shows that the glomerulus is entirely sclerotic. There is no electron-dense immuno-type deposits appreciated. Tubules appear poorly preserved. Vessels appear thickened. GROSS DESCRIPTION The specimen is sent entirely to [facility] for diagnosis. Received in poly-transport medium is one container labeled with the patient's name and medical record number are three pedraza cores of renal tissue ranging in length from 0.9 to 1.6 cm, each approximately 0.1 cm in width. The specimen is divided for immunofluorescence, electron microscopy and light microscopy.
[2018-05-01] MEDS: hydrALAZINE 50 MG Tablet PO ×2 (15:45→21:46)
--- NOTE | 2018-05-01 18:36 | PN.RENAL_ITS ---
Patient Problems: Active and Suspected Problems Hypertensive emergency (Acute) Headache (Acute) Kidney failure (Acute) Subjective: Following for YAMILET. Pt denies CP, SOB or nausea. No edema. BP is better. - Physical Exam General: Alert, Oriented x3 HEENT: Atraumatic, Normocephalic Oral: Moist Mucosa Neck: Supple Lungs: Clear to auscultation Cardiovascular: Normal S1, Normal S2, No murmurs Abdomen: Bowel Sounds Present, Soft, Non Tender Extremities: No edema Vital Signs Temp Pulse Resp BP Pulse Ox 98 F 88 16 142/100 H 98 05/01/18 15:44 05/01/18 15:58 05/01/18 15:44 05/01/18 15:45 05/01/18 15:44 Oxygen Flow Rate (L/min) 2 Oxygen Delivery Method Room Air Weight: 59.9 kg Body Mass Index (BMI) 19.1 Intake and Output for Last 24 Hours 04/29/18 04/30/18 05/01/18 23:59 23:59 23:59 Intake Total 750 / 750 2610 / 2610 850 / 850 Output Total 600 / 600 2225 / 2225 1100 / 1100 Balance 150 / 150 385 / 385 -250 / -250 Laboratory Tests Past 24 Hrs 05/01/18 05/01/18 05/01/18 05:35 05:35 05:35 WBC 7.1 RBC 3.96 L Hgb 12.2 L Hct 37.2 L MCV 93.9 MCH 30.8 MCHC 32.8 RDW 12.8 RDW Differential 44.2 H Plt Count 237 MPV 10.3 Immature Gran % (Auto) 0.100 Neut % (Auto) 70.1 H Lymph % (Auto) 18.5 L [place] % (Auto) 10.2 H Eos % (Auto) 0.1 Baso % (Auto) 1.0 Absolute Neuts (auto) 5.0 Absolute Lymphs (auto) 1.32 Total Counted Not Reportable PT 13.7 INR 1.1 APTT 36.7 H Sodium 137 Potassium 4.3 Chloride 105 Carbon Dioxide 24.0 Anion Gap 8 BUN 39 H Creatinine 3.63 H Estim Creat Clear Calc 25.44 Est GFR (MDRD) Af Amer 26 L Est GFR (MDRD) Non-Af 21 L BUN/Creatinine Ratio 10.7 Glucose 94 Calcium 8.7 Medical Necessity - Tobacco Use Smoking Status: Current every day smoker Tobacco Use: Cigarettes Assessment/Plan All Active Problems Hypertensive emergency (Acute) Headache (Acute) Kidney failure (Acute) 1. Acute kidney injury. Presumed YAMILET since there is no prior SCr for comparison. Undiagnosed CKD is possible. Kidney size is normal without evidence of obstruction. Urine protein to creatinine ratio is 6.5 g/g. Serologies pending. SCr continue to increase in the past 24 hrs, but pt is not overtly uremic. There is no urgent need for kidney replacement therapy (dialysis) at this time. I would recommend a kidney biopsy on Wednesday05/02/18 since pt has YAMILET associated with hematuria and proteinuria. Current medications were reviewed and are appropriately dosed for current renal function. 2. Hypertension. Difficult to tell if HTN is the cause of renal failure or if renal failure has led to difficult to control BP at this point. Nevertheless, treatment of HTN will help decrease injury to the kidneys. Agree with nicardipine gtt. Will defer titration of BP medications to seafood harvester to avoid confusion.
[2018-05-02] VITALS (22 sets, daily range): BP systolic 133–167; BP diastolic 90–122; PULSE 75–108; RESP 12–18; TEMP 36.6–36.9; O2SAT 97–100
[2018-05-02] MEDS: hydrALAZINE 50 MG Tablet PO (05:32)
[2018-05-02 06:47] LABS: Anion Gap 9 (5-15); BUN 44 mg/dL (7-18); BUN/Creat Ratio 12.5 RATIO (10-20); Calcium,Total 8.8 mg/dL (8.5-10.1); Chloride 108 mmol/L (98-107); Creatinine, Serum 3.52 mg/dL (0.70-1.30); EST Glomerular Filtration Rate 22 mL/min (>60); Est Glom Filt Rate - Afr Amer 26 mL/min (>60); Glucose 93 mg/dL (74-106); Potassium 4.4 mmol/L (3.5-5.1); Sodium Level 138 mmol/L (136-145)
[2018-05-02] MEDS: Metoprolol Tartrate 25 MG Tablet PO (10:15)
[2018-05-02] MEDS: NIFEdipine 60 MG Tablet PO (10:15)
[2018-05-02] MEDS: 0.9% Normal Saline 1,000 ML 50 ML IV (10:15)
--- NOTE | 2018-05-02 11:47 | PCM.PN.HOSP ---
Patient Problems: Active and Suspected Problems Hypertensive emergency (Acute) Headache (Acute) Kidney failure (Acute) Subjective: Feels a little better though with headache and blurry vision when he stands up. Currently hungry but NPO for renal biopsy Vitals/I&O's: Vital Signs Temp Pulse Resp BP Pulse Ox 98 F 77 16 152/105 H 100 05/02/18 09:32 05/02/18 11:09 05/02/18 09:32 05/02/18 09:32 05/02/18 09:32 Oxygen Flow Rate (L/min) 2 Oxygen Delivery Method Room Air Weight: 127 lb 13.89 oz Body Mass Index (BMI) 19.1 Intake and Output for Last 24 Hours 04/30/18 05/01/18 05/02/18 23:59 23:59 23:59 Intake Total 2610 / 2610 1534 / 1534 263 / 263 Output Total 2225 / 2225 1100 / 1100 Balance 385 / 385 434 / 434 263 / 263 General: Alert, Oriented x3, Cooperative, No apparent distress HEENT: Atraumatic, PERRLA, EOMI, Normocephalic Oral: Moist Mucosa Neck: Supple, No JVD Lungs: Clear to auscultation, Normal air movement, No rhonchi, No wheeze, No rales Cardiovascular: Regular rate, Regular Rhythm, Normal S1, Normal S2, No murmurs Abdomen: Soft, Non Tender, Non-Distended, No Hepato-splenomegaly Extremities: No edema, Capillary Refill Less than 3 Seconds Skin: No rashes, No breakdown Neurological: Neuro grossly intact, Sensory exam intact to light touch and pain Psych/Mental Status: Normal Affect, Appropriate Laboratory Results 05/02/18 05:48: Sodium 138, Potassium 4.4, Chloride 108 H, Carbon Dioxide 21.0, Anion Gap 9, BUN 44 H, Creatinine 3.52 H, Estim Creat Clear Calc 25.40, Est GFR (MDRD) Af Amer 26 L, Est GFR (MDRD) Non-Af 22 L, BUN/Creatinine Ratio 12.5, Glucose 93, Calcium 8.8 Current Medications Acetaminophen (Tylenol) 650 mg PO Q4H PRN PRN PRN Reason: HEADACHE Acetaminophen/Butalbital/Caffeine (Fioricet) 1 - 2 tablet PO Q4H PRN PRN PRN Reason: moderate to severe headache Last Admin: 05/01/18 07:49 Dose: 2 tablet Al Hydroxide/Mg Hydroxide (Mylanta Ii) 30 ml PO Q6H PRN PRN PRN Reason: Gastric burning Hydralazine HCl (Apresoline Iv) 10 mg IV Q4H PRN PRN Reason: hypertension Hydralazine HCl (Apresoline) 50 mg PO TID [facility] Last Admin: 05/02/18 05:32 Dose: 50 mg Sodium Chloride () 1,000 mls @ 50 mls/hr IV .Q20H [facility] Last Admin: 05/02/18 10:15 Dose: 50 mls/hr Magnesium Hydroxide (Milk Of Magnesia) 30 ml PO DAILY PRN PRN PRN Reason: Constipation Metoprolol Tartrate (Lopressor (Beta Ronnie)) 25 mg PO BID [facility] Last Admin: 05/02/18 10:15 Dose: 25 mg Nicotine (Nicoderm Cq (Pbkc)) 21 mg TRANSDERM. DAILY [facility] Last Admin: 05/02/18 10:14 Dose: 21 mg Nifedipine (Procardia Xl) 60 mg PO DAILY [facility] Last Admin: 05/02/18 10:15 Dose: 60 mg Ondansetron HCl (Zofran) 4 mg IV Q8H PRN PRN PRN Reason: NAUSEA Last Admin: 04/29/18 20:19 Dose: 4 mg Senna/Docusate Sodium (Senokot-S, Lola-Colace) 2 tablet PO BID PRN PRN Reason: constipation Sodium Chloride () 5 - 15 ml IV UD PRN PRN Reason: SALINE FLUSH Last Admin: 05/01/18 05:34 Dose: 10 ml Sodium Chloride ([place] Nasal [place]) 2 spray NASAL BID PRN PRN PRN Reason: NASAL DRYNESS Zolpidem Tartrate (Ambien (Generic)) 5 mg PO QHS PRN PRN PRN Reason: INSOMNIA Medical Necessity - Tobacco Use Smoking Status: Current every day smoker Tobacco Use: Cigarettes Assessment/Plan All Active Problems Hypertensive emergency (Acute) Headache (Acute) Kidney failure (Acute) 1. hypertensive emergency with headache and blurry vision/YAMILET/Headache and blurry vision - CT head was done in the ER and reported normal - Cardiology recommended Procardia and discontinue verapamil. - 2D echo reported as normal LV size and function with mild LVH, EF of 65%, and mild pulmonary hypertension with an RVSP of approximately 42 mmHg. - Patient's diastolic blood pressure is still elevated. Procardia dose 60 mg daily. - Renal biopsy pending, US with degenerative cortex, avoid nephrotoxic agents - appreciate nephrology assistance, YAMILET - Outpatient f/u with ophtho if blurry vision does not resolve with BP control DVT: Low risk. Early ambulation encouraged. Code Visit Inpatient E&M: 28530 Subs Hosp L2
--- NOTE | 2018-05-02 12:00 | PN_ITS ---
Patient Problems: Active and Suspected Problems Hypertensive emergency (Acute) Headache (Acute) Kidney failure (Acute) Subjective: Feels a little better though with headache and blurry vision when he stands up. Currently hungry but NPO for renal biopsy Vitals/I&O's: Vital Signs Temp Pulse Resp BP Pulse Ox 98 F 77 16 152/105 H 100 05/02/18 09:32 05/02/18 11:09 05/02/18 09:32 05/02/18 09:32 05/02/18 09:32 Oxygen Flow Rate (L/min) 2 Oxygen Delivery Method Room Air Weight: 127 lb 13.89 oz Body Mass Index (BMI) 19.1 Intake and Output for Last 24 Hours 04/30/18 05/01/18 05/02/18 23:59 23:59 23:59 Intake Total 2610 / 2610 1534 / 1534 263 / 263 Output Total 2225 / 2225 1100 / 1100 Balance 385 / 385 434 / 434 263 / 263 General: Alert, Oriented x3, Cooperative, No apparent distress HEENT: Atraumatic, PERRLA, EOMI, Normocephalic Oral: Moist Mucosa Neck: Supple, No JVD Lungs: Clear to auscultation, Normal air movement, No rhonchi, No wheeze, No rales Cardiovascular: Regular rate, Regular Rhythm, Normal S1, Normal S2, No murmurs Abdomen: Soft, Non Tender, Non-Distended, No Hepato-splenomegaly Extremities: No edema, Capillary Refill Less than 3 Seconds Skin: No rashes, No breakdown Neurological: Neuro grossly intact, Sensory exam intact to light touch and pain Psych/Mental Status: Normal Affect, Appropriate Laboratory Results 05/02/18 05:48: Sodium 138, Potassium 4.4, Chloride 108 H, Carbon Dioxide 21.0, Anion Gap 9, BUN 44 H, Creatinine 3.52 H, Estim Creat Clear Calc 25.40, Est GFR (MDRD) Af Amer 26 L, Est GFR (MDRD) Non-Af 22 L, BUN/Creatinine Ratio 12.5, Glucose 93, Calcium 8.8 Current Medications Acetaminophen (Tylenol) 650 mg PO Q4H PRN PRN PRN Reason: HEADACHE Acetaminophen/Butalbital/Caffeine (Fioricet) 1 - 2 tablet PO Q4H PRN PRN PRN Reason: moderate to severe headache Last Admin: 05/01/18 07:49 Dose: 2 tablet Al Hydroxide/Mg Hydroxide (Mylanta Ii) 30 ml PO Q6H PRN PRN PRN Reason: Gastric burning Hydralazine HCl (Apresoline Iv) 10 mg IV Q4H PRN PRN Reason: hypertension Hydralazine HCl (Apresoline) 50 mg PO TID [facility] Last Admin: 05/02/18 05:32 Dose: 50 mg Sodium Chloride () 1,000 mls @ 50 mls/hr IV .Q20H [facility] Last Admin: 05/02/18 10:15 Dose: 50 mls/hr Magnesium Hydroxide (Milk Of Magnesia) 30 ml PO DAILY PRN PRN PRN Reason: Constipation Metoprolol Tartrate (Lopressor (Beta Ronnie)) 25 mg PO BID [facility] Last Admin: 05/02/18 10:15 Dose: 25 mg Nicotine (Nicoderm Cq (Pbkc)) 21 mg TRANSDERM. DAILY [facility] Last Admin: 05/02/18 10:14 Dose: 21 mg Nifedipine (Procardia Xl) 60 mg PO DAILY [facility] Last Admin: 05/02/18 10:15 Dose: 60 mg Ondansetron HCl (Zofran) 4 mg IV Q8H PRN PRN PRN Reason: NAUSEA Last Admin: 04/29/18 20:19 Dose: 4 mg Senna/Docusate Sodium (Senokot-S, Lola-Colace) 2 tablet PO BID PRN PRN Reason: constipation Sodium Chloride () 5 - 15 ml IV UD PRN PRN Reason: SALINE FLUSH Last Admin: 05/01/18 05:34 Dose: 10 ml Sodium Chloride ([place] Nasal [place]) 2 spray NASAL BID PRN PRN PRN Reason: NASAL DRYNESS Zolpidem Tartrate (Ambien (Generic)) 5 mg PO QHS PRN PRN PRN Reason: INSOMNIA Medical Necessity - Tobacco Use Smoking Status: Current every day smoker Tobacco Use: Cigarettes Assessment/Plan All Active Problems Hypertensive emergency (Acute) Headache (Acute) Kidney failure (Acute) 1. hypertensive emergency with headache and blurry vision/YAMILET/Headache and blurry vision - CT head was done in the ER and reported normal - Cardiology recommended Procardia and discontinue verapamil. - 2D echo reported as normal LV size and function with mild LVH, EF of 65%, and mild pulmonary hypertension with an RVSP of approximately 42 mmHg. - Patient's diastolic blood pressure is still elevated. Procardia dose 60 mg daily. - Renal biopsy pending, US with degenerative cortex, avoid nephrotoxic agents - appreciate nephrology assistance, YAMILET - Outpatient f/u with ophtho if blurry vision does not resolve with BP control DVT: Low risk. Early ambulation encouraged. Code Visit Inpatient E&M: 16660 Subs Hosp L2
--- NOTE | 2018-05-02 12:32 | US_ITS ---
PROCEDURE: DATE OF EXAMINATION: INDICATION: Male, 27 years old. PHYSICIAN: FLUOROSCOPY TIME (if supplied): ( ) minutes/seconds RADIATION DOSAGE (If Supplied By Facility): CTDIvol = ( ) mGy, DLP = ( ) mGycm CONSENT: The risks, benefits and alternatives to the procedure were explained to the patient, and the patient agreed to the procedure and signed the consent. SEDATION: STERILE BARRIER TECHNIQUE: The following sterile barrier precautions were used during the procedure: hand hygiene; use of 2% chlorhexidine aseptic; use of a cap, mask, sterile gown, sterile gloves, sterile full body drape, and a large sterile sheet. PROCEDURE/TECHNIQUE: (All elements of maximal sterile barrier technique followed, including US elements as applicable) The risks, benefits, and alternatives to the procedure were explained to patient, and the patient agreed to the procedure and signed a consent form for the procedure. A timeout was performed to confirm the patient's identity, the type of procedure, to be performed and the site of entry. Under ultrasound guidance and usage 18-gauge Marshall-Cut needle. 3 Cores were obtained from the lower pole of the left kidney, the specimens were sent to the lab for histopathologic assessment. The patient tolerated the procedure well. US/Kidney Biopsy IMPRESSION: Uneventful kidney biopsy. Electronically Signed: Lacy Santiago, at 16:33 EST Tel , Service support ,
[2018-05-02 12:38] LABS: ANTINUCLEAR ANTIBODIES DIRECT Negative (Negative)
--- NOTE | 2018-05-02 13:13 | PCM.PN.CARD ---
Subjectve: Patient resting comfortably. Blood pressure still not optimized. Renal biopsy pending. Objective: Vital Signs Temp Pulse Resp BP Pulse Ox 98 F 77 16 152/105 H 100 05/02/18 09:32 05/02/18 11:09 05/02/18 09:32 05/02/18 09:32 05/02/18 09:32 Oxygen Flow Rate (L/min) 2 Oxygen Delivery Method Room Air Weight: 127 lb 13.89 oz Body Mass Index (BMI) 19.1 Intake and Output for Last 24 Hours 04/30/18 05/01/18 05/02/18 23:59 23:59 23:59 Intake Total 2610 / 2610 1534 / 1534 383 / 383 Output Total 2225 / 2225 1100 / 1100 Balance 385 / 385 434 / 434 383 / 383 General: Awake, Alert, Oriented x 3 HEENT: PERRL, EOMI, Sclera Non Icteric Neck: Supple, Good ROM, No Lymph Node Enlargement Lungs: Clear to auscultation Cardiovascular: Regular Rhythm, Normal S1, Normal S2, No Murmurs, No Rubs, No Gallops Vascular: No Carotid Bruits, Normal Femoral Pulses, Normal Radial Pulses, Normal Dorsalis Pedal Pulse, Normal Posterior Tibial Pulses Abdomen: Bowel Sounds Present, Soft, Non Tender, No HSM, No Organomegaly Extremities: No Cyanosis, No Clubbing, No edema Neurological: No Focal Motor or Sensory Deficit 05/02/18 05:48: Sodium 138, Potassium 4.4, Chloride 108 H, Carbon Dioxide 21.0, Anion Gap 9, BUN 44 H, Creatinine 3.52 H, Est GFR (MDRD) Af Amer 26 L, Est GFR (MDRD) Non-Af 22 L, BUN/Creatinine Ratio 12.5, Glucose 93, Calcium 8.8 Rhythm: EKG: ECHO: Stress Test: Cardiac Cath: PCI: CT Surgery: Holter monitor: EPS: PPM: CXR: Chest CT Scan: Medical Necessity - Tobacco Use Smoking Status: Current every day smoker Tobacco Use: Cigarettes Assessment/Plan 1. Hypertensive emergency: Patient's blood pressure was markedly elevated superimposed upon acute renal failure, and hematuria possibly related to nephritis of some kind. The patient denies any fevers, chills, or recent flulike illnesses. His echocardiogram shows mild LVH with an EF around 65%, and at least mild pulmonary hypertension with an RVSP of 42 mmHg. At this point the patient is being managed with antihypertensive therapy including nifedipine, hydralazine p.o.,and metoprolol. Would not recommend diuretic therapy at this time given the patient's acute renal failure. Blood pressures improved but not optimized particularly his diastolic hypertension. Recommend increasing his hydralazine to 75 mg p.o. 3 times daily, discontinuing his metoprolol and switching him to Coreg 6.25 mg p.o. twice daily. We will continue Procardia XL 60 mg p.o. daily. Renal biopsy is pending. I do not believe the patient requires a stress test at this time given his young age, lack of troponins, lack of EKG changes, and lack of anginal symptoms. Patient is undergoing a 24-hour urine for catecholamines and we await those results. 2. Thank you very much for the opportunity to participate in the cardiac care of your patient. We will sign off. Please call with any questions. Code Visit Inpatient E&M: 65398 Subs Hosp L2
[2018-05-02] MEDS: Midazolam 2 MG/2 ML Syringe IV ×2 (14:09→15:06)
[2018-05-02] MEDS: fentaNYL 100 MCG/2 ML Ampul IV ×2 (14:09→14:35)
[2018-05-02] MEDS: hydrALAZINE 50 MG Tablet 75 MG PO ×2 (15:56→21:59)
[2018-05-02 16:06] LABS: Cytoplasmic Ab (C-ANCA) <1:20 titer (Neg:<1:20)
[2018-05-02] MEDS: Acetaminophen 325 MG Tablet 650 MG PO (17:03)
[2018-05-02] MEDS: oxyCODONE 5 MG Tablet PO (18:52)
--- NOTE | 2018-05-02 19:03 | PN.RENAL_ITS ---
Patient Problems: Active and Suspected Problems Hypertensive emergency (Acute) Headache (Acute) Kidney failure (Acute) Subjective: Following for YAMILET. Pt complains of back pain after kidney biopsy. No CP, SOB or nausea. - Physical Exam General: Alert, Oriented x3 HEENT: Atraumatic, Normocephalic Oral: Moist Mucosa Neck: Supple Lungs: Clear to auscultation Cardiovascular: Normal S1, Normal S2 Abdomen: Bowel Sounds Present, Soft, Non Tender Extremities: No edema Vital Signs Temp Pulse Resp BP Pulse Ox 98.2 F 80 18 155/91 H 100 05/02/18 15:51 05/02/18 15:56 05/02/18 15:51 05/02/18 17:05 05/02/18 15:51 Oxygen Flow Rate (L/min) 2 Oxygen Delivery Method [11] Room Air Oxygen Delivery Method [10] Room Air Oxygen Delivery Method [9] Room Air Oxygen Delivery Method [8] Room Air Oxygen Delivery Method [7] Room Air Oxygen Delivery Method [6] Room Air Oxygen Delivery Method [5] Room Air Oxygen Delivery Method [4] Room Air Oxygen Delivery Method [3] Room Air Oxygen Delivery Method [2] Room Air Oxygen Delivery Method [1 ( Room Air Initial Baseline)] Oxygen Delivery Method Room Air Weight: 58 kg Body Mass Index (BMI) 19.1 Intake and Output for Last 24 Hours 04/30/18 05/01/18 05/02/18 23:59 23:59 23:59 Intake Total 2610 / 2610 1534 / 1534 623 / 623 Output Total 2225 / 2225 1100 / 1100 1600 / 1600 Balance 385 / 385 434 / 434 -977 / -977 Laboratory Tests Past 24 Hrs 04/29/18 05/02/18 09:30 05:48 Sodium 138 Potassium 4.4 Chloride 108 H Carbon Dioxide 21.0 Anion Gap 9 BUN 44 H Creatinine 3.52 H Estim Creat Clear Calc 25.40 Est GFR (MDRD) Af Amer 26 L Est GFR (MDRD) Non-Af 22 L BUN/Creatinine Ratio 12.5 Glucose 93 Calcium 8.8 PANTERA Screen Negative Medical Necessity - Tobacco Use Smoking Status: Current every day smoker Tobacco Use: Cigarettes Assessment/Plan All Active Problems Hypertensive emergency (Acute) Headache (Acute) Kidney failure (Acute) 1. Acute kidney injury. Associated with hematuria and proteinuria. Suspect GN. PANTERA is negative, but the rest of serologies pending. SCr has stabilized in the past 24 hrs, and the pt is not overtly uremic. There is no urgent need for kidney replacement therapy (dialysis) at this time. s/p kidney biopsy today-result may take up to a week. Therefore, if SCr remains below 3.7 mg/dL and there is no significant pain (from Bx) or drop in Hgb, then he can go home from my standpoint. I will arrange outpt follow up to go over the result of the biopsy within 1-2 weeks. Current medications were reviewed and are appropriately dosed for current renal function. 2. Hypertension. Difficult to tell if HTN is the cause of renal failure or if r enal failure has led to difficult to control BP at this point. Nevertheless, treatment of HTN will help decrease injury to the kidneys. Will defer titration of BP medications to boilers inspector to avoid confusion. Please call me if there is any question at [phone]. Thank you.
[2018-05-02] MEDS: Carvedilol 6.25 MG Tablet PO (21:59)
[2018-05-03] VITALS (19 sets, daily range): BP systolic 143–170; BP diastolic 94–118; PULSE 57–115; RESP 16–18; TEMP 36.7–37.2; O2SAT 97–98
[2018-05-03] MEDS: oxyCODONE 5 MG Tablet PO ×2 (01:17→09:11)
[2018-05-03] MEDS: hydrALAZINE 50 MG Tablet 75 MG PO ×3 (05:51→21:02)
[2018-05-03] MEDS: 0.9% Normal Saline 1,000 ML 50 ML IV (05:53)
[2018-05-03 07:31] LABS: Absolute Lymphocyte Count 1.25 X10^3/ul (0.83-4.51); Basophil# 0.03 X10^3/uL; Basophil% 0.5 % (0-1); Eosinophil# 0.07 X10^3/uL; Eosinophils% 1.2 % (0-5); Hematocrit 38.8 % (40-54); Hemoglobin 12.7 g/dl (13.0-16.5); Lymphocyte # 1.25 X10^3/ul (4.0); Mean Corp Hgb Conc 32.7 g/gl (32-36); Mean Corpuscular Hgb 30.7 pg (27.0-32.0); Mean Corpuscular Volume 93.7 fL (80-94); Mean Platelet Vol. 10.8 fl (6.2-12.0); Monocyte# 0.57 X10^3/uL; Monocyte% 9.6 % (0-10); Neutrophil # 4.02 X10^3/uL (2.7-7.7); Neutrophil % 67.7 % (47-70); Platelet Count 218 K/mm3 (150-450); RBC Distribution Width CV 13.1 % (11.6-14.6); RBC Distribution Width SD 45.2 fl (35.1-43.9); Red Blood Count 4.14 M/mm3 (4.6-6.2); White Blood Count 5.9 K/mm3 (4.4-11.0)
[2018-05-03 07:40] LABS: POSITIVE COUNT NO; POSITIVE DIFFERENTIAL NO; POSITIVE MORPHOLOGY NO
[2018-05-03 07:44] LABS: Anion Gap 10 (5-15); BUN 40 mg/dL (7-18); Calcium,Total 8.6 mg/dL (8.5-10.1); Chloride 109 mmol/L (98-107); Creatinine, Serum 3.08 mg/dL (0.70-1.30); EST Glomerular Filtration Rate 26 mL/min (>60); Est Glom Filt Rate - Afr Amer 31 mL/min (>60); Estimated Creatinine Clearance 29.43 ml/min; Glucose 93 mg/dL (74-106); Potassium 4.3 mmol/L (3.5-5.1); Sodium Level 139 mmol/L (136-145)
[2018-05-03] MEDS: Carvedilol 6.25 MG Tablet PO ×2 (09:10→21:02)
[2018-05-03] MEDS: NIFEdipine 60 MG Tablet PO (09:10)
[2018-05-03 10:30] LABS: Complement C3 153 mg/dL (82-167); Perinuclear Ab (P-ANCA) <1:20 titer (Neg:<1:20)
--- NOTE | 2018-05-03 10:34 | DCINST_ITS ---
- Discharge Diagnoses Current Active Problems: Current Active and Chronic Problems Hypertensive emergency (Acute) Headache (Acute) Kidney failure (Acute) You will use the following diet at home:: Renal (restricted protein/sodium) Your food should be the consistency of: Regular Your liquids should be the consistency of: Regular/Thin Discharge Activity: Return to Normal Activity Call your doctor if your incision/area has: Sudden Increased Bleeding, Increased Pain/ Swelling, Increased Redness, Foul Smelling Discharge Call your doctor if you observe: Fever of 101 or Higher, Shortness of breath, Dizziness, Fainting spells, Chest pain Allergies/Adverse Reactions: Allergies codeine Allergy (Verified 04/29/18 08:48) Rash Medications to take at Discharge Carvedilol [Coreg (Beta Ronnie)] 6.25 mg PO BID #60 tablet 05/03/18 hydrALAZINE [Apresoline] 75 mg PO TID #90 tablet 05/03/18 NIFEdipine [Procardia XL] 90 mg PO DAILY #30 tablet 05/04/18 The following prescriptions were given: NIFEdipine [Procardia XL] 90 mg PO DAILY #30 tablet Carvedilol [Coreg (Beta Ronnie)] 6.25 mg PO BID #60 tablet hydrALAZINE [Apresoline] 75 mg PO TID #90 tablet Primary Care Physician: Ernesto Mcnally MD [Primary Care Provider] - Please follow up with your Primary Care Physician in: 3-5 days Test Results: Test results from this visit will be discussed in further detail at your follow- up appointment, if applicable. Please Follow Up With: Angeles Hamilton MD When: 1-2 weeks
--- NOTE | 2018-05-03 10:34 | PCM.DC.SUM ---
Discharge Date and Diagnosis - Problem List Patient Problems: Active and Suspected Problems Hypertensive emergency (Acute) Headache (Acute) Kidney failure (Acute) Date of Admission: 04/29/18 Date of Discharge: 05/03/18 - Primary Discharge Diagnosis Active and Suspected Problems Hypertensive emergency (Acute) Headache (Acute) Kidney failure (Acute) Hospital Course and Treatment Imaging Results: CT brain - IMPRESSION: Normal unenhanced CT scan of the brain. CXR: IMPRESSION: Normal x-ray examination of the chest. Renal Doppler: Interpretation Summary Normal aortic diameter but with increased velocities making renal aortic ratios not reliable <60% stenosis bilateral renal arteries Bilateral renal resistivity indices are normal--findings do not suggest intrinsic renal parenchymal disease. Right kidney length 9.7cm Left kidney length 9.3cm Renal US: IMPRESSION: Degenerative cortex of the kidneys suggesting medical renal disease. Consults: Cardiology Nephrology Operations: None Procedures: 2-D Echocardiogram - Interpretation Summary Moderate concentric left ventricular hypertrophy. The estimated ejection fraction is 65 %. Stage 1 diastolic dysfunction. Trivial tricuspid valve insufficiency. Right ventricular systolic pressure estimated to be 42 mmHg. Mild pulmonary hypertension. There is no comparison study available., - - Renal Biopsy: Under ultrasound guidance and usage 18-gauge Marshall-Cut needle. 3 Cores were obtained from the lower pole of the left kidney, the specimens were sent to the lab for histopathologic assessment. The patient tolerated the procedure well. Summary of Care Provided: Per HPI: The patient is a 27 year old M came to ED with headache and blurry vision. Patient does not know his history of hypertension but in ED was found 190/127, heart rate 124/min, sinus tachycardia on monitor. Patient was given 2 doses of IV labetalol 10 mg but his blood pressure was still high 184/108, 179/134 and then decided to put on IV nicardipine drip and admitted in ICU. Patient is on verapamil by PCP for headache only once about 3 weeks ago. Is not any antihypertensive medication. He also lost about 15 pounds in last 6 months. Basic blood work in ER shows K3.4, creatinine 3.11, BUN 38. H&H 12.6/37.3. No previous labs to compare with. EKG shows normal sinus rhythm at 87 bpm with incomplete RBBB but no LVH. Patient accepted smoking 1 pack/day since the age of 10 or 11. He also drinks alcohol and states has quit about 3-4 months ago because of headache. General: Alert, Oriented x3, Cooperative, No apparent distress HEENT: Atraumatic, PERRLA, EOMI, Normocephalic Oral: Moist Mucosa Neck: Supple, No JVD Lungs: Clear to auscultation, Normal air movement, No rhonchi, No wheeze, No rales Cardiovascular: Regular rate, Regular Rhythm, Normal S1, Normal S2, No murmurs Abdomen: Soft, Non Tender, Non-Distended, No Hepato-splenomegaly Extremities: No edema, Capillary Refill Less than 3 Seconds Skin: No rashes, No breakdown Neurological: Neuro grossly intact, Sensory exam intact to light touch and pain Psych/Mental Status: Normal Affect, Appropriate Hospital Course: 1. hypertensive emergency with headache and blurry vision/YAMILET/Headache and blurry vision - 27-year-old male who presented to the ER with headaches and blurry vision was found to have a significantly elevated systolic and diastolic blood pressure. He was also found to be in acute renal failure. He had an echo which was fairly normal with mild pulmonary hypertension, and nephrology was consulted who recommended immunological studies which have all returned back negative, and they performed a renal biopsy with pathology is pending. His creatinine has continued to improved and is currently 3.08 on the day of discharge and he is feeling okay and the pain is better from his renal biopsy. He would like to go home. Multiple medication changes were made to control his blood pressure specifically his diastolic blood pressure, he was started on Coreg and Procardia as well as hydralazine 3 times a day. Initially in the morning prior to his medications his blood pressure was 170/99, will await to see what his afternoon blood pressures are prior to discharge. I did discuss the plan with him and he is aware as to how serious this disease processes and that he needs to have close follow-up. He states that he understands completely what he needs to do, and understands that he does need to follow-up. He needs to see his primary care physician within the next 3-5 days, and he will follow-up with nephrology in 1-2 weeks to go over the results of his immunological studies and his biopsy. His blurry vision does not resolve with better blood pressure control, he will need to follow-up with ophthalmology as well. 2. His other diagnoses were evaluated and his home medications were continued were appropriate. Patient Problems: Active and Suspected Problems Hypertensive emergency (Acute) Headache (Acute) Kidney failure (Acute) - Physical Exam Vital Signs Temp Pulse Resp BP Pulse Ox 98.0 F 74 16 170/99 H 97 05/03/18 08:37 05/03/18 08:37 05/03/18 08:37 05/03/18 08:37 05/03/18 08:37 Oxygen Flow Rate (L/min) 2 Oxygen Delivery Method [11] Room Air Oxygen Delivery Method [10] Room Air Oxygen Delivery Method [9] Room Air Oxygen Delivery Method [8] Room Air Oxygen Delivery Method [7] Room Air Oxygen Delivery Method [6] Room Air Oxygen Delivery Method [5] Room Air Oxygen Delivery Method [4] Room Air Oxygen Delivery Method [3] Room Air Oxygen Delivery Method [2] Room Air Oxygen Delivery Method [1 ( Room Air Initial Baseline)] Oxygen Delivery Method Room Air Weight: 129 lb 10.109 oz Body Mass Index (BMI) 19.1 Intake and Output for Last 24 Hours 05/01/18 05/02/18 05/03/18 23:59 23:59 23:59 Intake Total 1534 / 1534 623 / 623 701 / 701 Output Total 1100 / 1100 1600 / 1600 Balance 434 / 434 -977 / -977 701 / 701 Laboratory Tests Past 24 Hrs 04/29/18 04/29/18 05/03/18 09:30 09:30 06:51 WBC RBC Hgb Hct MCV MCH MCHC RDW RDW Differential Plt Count MPV Immature Gran % (Auto) Neut % (Auto) Lymph % (Auto) [place] % (Auto) Eos % (Auto) Baso % (Auto) Absolute Neuts (auto) Absolute Lymphs (auto) Total Counted Sodium 139 Potassium 4.3 Chloride 109 H Carbon Dioxide 20.0 L Anion Gap 10 BUN 40 H Creatinine 3.08 H Estim Creat Clear Calc 29.43 Est GFR (MDRD) Af Amer 31 L Est GFR (MDRD) Non-Af 26 L BUN/Creatinine Ratio 13.0 Glucose 93 Calcium 8.6 PANTERA Screen Negative c-ANCA Antibody <1:20 Atypical p-ANCA <1:20 p-ANCA Antibody <1:20 MONTY-1 Antibody Not Reportable SS-A/Ro IgG Antibody Not Reportable SS-B/La IgG Antibody Not Reportable Sm (Ugarte) Antibody Not Reportable ELEVATOR SUPERVISOR Antibody Not Reportable Scl-70 Scleroderma Ab Not Reportable Double Strand DNA Ab Not Reportable Centromere B Antibody Not Reportable Complement C3 153 Complement C4 29 05/03/18 06:51 WBC 5.9 RBC 4.14 L Hgb 12.7 L Hct 38.8 L MCV 93.7 MCH 30.7 MCHC 32.7 RDW 13.1 RDW Differential 45.2 H Plt Count 218 MPV 10.8 Immature Gran % (Auto) 0.000 Neut % (Auto) 67.7 Lymph % (Auto) 21.0 [place] % (Auto) 9.6 Eos % (Auto) 1.2 Baso % (Auto) 0.5 Absolute Neuts (auto) 4.0 Absolute Lymphs (auto) 1.25 Total Counted Not Reportable Sodium Potassium Chloride Carbon Dioxide Anion Gap BUN Creatinine Estim Creat Clear Calc Est GFR (MDRD) Af Amer Est GFR (MDRD) Non-Af BUN/Creatinine Ratio Glucose Calcium PANTERA Screen c-ANCA Antibody Atypical p-ANCA p-ANCA Antibody MONTY-1 Antibody SS-A/Ro IgG Antibody SS-B/La IgG Antibody Sm (Ugarte) Antibody ELEVATOR SUPERVISOR Antibody Scl-70 Scleroderma Ab Double Strand DNA Ab Centromere B Antibody Complement C3 Complement C4 Discharge Activity: Return to Normal Activity Call your doctor if your incision/area has: Sudden Increased Bleeding, Increased Pain/ Swelling, Increased Redness, Foul Smelling Discharge Call your doctor if you observe: Fever of 101 or Higher, Shortness of breath, Dizziness, Fainting spells, Chest pain Home Medications: Medications to take at Discharge Carvedilol [Coreg (Beta Ronnie)] 6.25 mg PO BID #60 tablet 05/03/18 NIFEdipine [Procardia Xl] 60 mg PO DAILY #30 tablet 05/03/18 hydrALAZINE [Apresoline] 75 mg PO TID #90 tablet 05/03/18 Following Prescrptions Were Given to Patient: NIFEdipine [Procardia Xl] 60 mg PO DAILY #30 tablet Carvedilol [Coreg (Beta Ronnie)] 6.25 mg PO BID #60 tablet hydrALAZINE [Apresoline] 75 mg PO TID #90 tablet Primary Care Physician: Ernesto Mcnally MD [Primary Care Provider] - Please follow up with your Primary Care Physician in: 3-5 days Please Follow Up With: Angeles Hamilton MD When: 1-2 weeks Disposition: Home Minutes spent on discharge:: 35 Patient Condition:: Good Medical Necessity - Tobacco Use Smoking Status: Current every day smoker Tobacco Use: Cigarettes Meaningful Use Info Meaningful Use Diagnoses (Choose all that apply): None applicable Code Visit Inpatient E&M: 24812 Disch Hosp
--- NOTE | 2018-05-03 10:45 | PCM.PN.CARD ---
Subjectve: Patient had biopsy yesterday, and complains of some pain at the biopsy site. Biopsy site is clean/dry/intact without evidence of hematoma. Minimal tenderness. Patient denies any chest pain. Telemetry negative. Patient's blood pressure was improved but is higher this morning possibly due to the pain induced by the biopsy site. Biopsy results pending sometime in the near future. Objective: Vital Signs Temp Pulse Resp BP Pulse Ox 98.0 F 74 16 170/99 H 97 05/03/18 08:37 05/03/18 08:37 05/03/18 08:37 05/03/18 08:37 05/03/18 08:37 Oxygen Flow Rate (L/min) 2 Oxygen Delivery Method [11] Room Air Oxygen Delivery Method [10] Room Air Oxygen Delivery Method [9] Room Air Oxygen Delivery Method [8] Room Air Oxygen Delivery Method [7] Room Air Oxygen Delivery Method [6] Room Air Oxygen Delivery Method [5] Room Air Oxygen Delivery Method [4] Room Air Oxygen Delivery Method [3] Room Air Oxygen Delivery Method [2] Room Air Oxygen Delivery Method [1 ( Room Air Initial Baseline)] Oxygen Delivery Method Room Air Weight: 129 lb 10.109 oz Body Mass Index (BMI) 19.1 Intake and Output for Last 24 Hours 05/01/18 05/02/18 05/03/18 23:59 23:59 23:59 Intake Total 1534 / 1534 623 / 623 701 / 701 Output Total 1100 / 1100 1600 / 1600 Balance 434 / 434 -977 / -977 701 / 701 General: Awake, Alert, Oriented x 3 HEENT: PERRL, EOMI, Sclera Non Icteric Neck: Supple, Good ROM, No Lymph Node Enlargement Lungs: Clear to auscultation Cardiovascular: Regular Rhythm, Normal S1, Normal S2, No Murmurs, No Rubs, No Gallops Vascular: No Carotid Bruits, Normal Femoral Pulses, Normal Radial Pulses, Normal Dorsalis Pedal Pulse, Normal Posterior Tibial Pulses Abdomen: Bowel Sounds Present, Soft, Non Tender, No HSM, No Organomegaly Extremities: No Cyanosis, No Clubbing, No edema Neurological: No Focal Motor or Sensory Deficit 05/03/18 06:51: Sodium 139, Potassium 4.3, Chloride 109 H, Carbon Dioxide 20.0 L, Anion Gap 10, BUN 40 H, Creatinine 3.08 H, Est GFR (MDRD) Af Amer 31 L, Est GFR (MDRD) Non-Af 26 L, BUN/Creatinine Ratio 13.0, Glucose 93, Calcium 8.6 05/03/18 06:51: WBC 5.9, RBC 4.14 L, Hgb 12.7 L, Hct 38.8 L, MCV 93.7, MCH 30.7, MCHC 32.7, RDW 13.1, RDW Differential 45.2 H, Plt Count 218, MPV 10.8, Immature Gran % (Auto) 0.000, Neut % (Auto) 67.7, Lymph % (Auto) 21.0, [place] % (Auto) 9.6, Eos % (Auto) 1.2, Baso % (Auto) 0.5, Absolute Neuts (auto) 4.0, Total Counted Not Reportable Rhythm: EKG: ECHO: Stress Test: Cardiac Cath: PCI: CT Surgery: Holter monitor: EPS: PPM: CXR: Chest CT Scan: Medical Necessity - Tobacco Use Smoking Status: Current every day smoker Tobacco Use: Cigarettes Assessment/Plan 1. Hypertensive emergency: Patient's blood pressure was markedly elevated superimposed upon acute renal failure, and hematuria possibly related to nephritis of some kind. The patient denies any fevers, chills, or recent flulike illnesses. His echocardiogram shows mild LVH with an EF around 65%, and at least mild pulmonary hypertension with an RVSP of 42 mmHg. At this point the patient is being managed with antihypertensive therapy including nifedipine, hydralazine p.o.,and metoprolol. Would not recommend diuretic therapy at this time given the patient's acute renal failure. Blood pressures improved but not optimized particularly his diastolic hypertension. Recommend increasing his hydralazine to 75 mg p.o. 3 times daily, discontinuing his metoprolol and switching him to Coreg 6.25 mg p.o. twice daily and titrating up from there. We will continue Procardia XL 60 mg p.o. daily. Renal biopsy has been completed yesterday, with some pain at the biopsy site which may be inducing hypertension at this time. I do not believe the patient requires a stress test at this time given his young age, lack of troponins, lack of EKG changes, and lack of anginal symptoms. Patient is undergoing a 24-hour urine for catecholamines and we await those results. 2. Thank you very much for the opportunity to participate in the cardiac care of your patient. We will sign off. Please call with any questions. She can follow-up with Dr. Olmos going forward. Code Visit Inpatient E&M: 70850 Subs Hosp L2
[2018-05-03] MEDS: hydrALAZINE 20 MG/ML Vial 10 MG IV (11:27)
--- NOTE | 2018-05-03 13:46 | PCM.PN.HOSP ---
Patient Problems: Active and Suspected Problems Hypertensive emergency (Acute) Headache (Acute) Kidney failure (Acute) Subjective: Doing well pain is managed, and headache is improved. Still with elevated blood pressures Vitals/I&O's: Vital Signs Temp Pulse Resp BP Pulse Ox 98.2 F 86 17 154/118 H 98 05/03/18 12:55 05/03/18 12:55 05/03/18 12:55 05/03/18 12:55 05/03/18 12:55 Oxygen Flow Rate (L/min) 2 Oxygen Delivery Method [11] Room Air Oxygen Delivery Method [10] Room Air Oxygen Delivery Method [9] Room Air Oxygen Delivery Method [8] Room Air Oxygen Delivery Method [7] Room Air Oxygen Delivery Method [6] Room Air Oxygen Delivery Method [5] Room Air Oxygen Delivery Method [4] Room Air Oxygen Delivery Method [3] Room Air Oxygen Delivery Method [2] Room Air Oxygen Delivery Method [1 ( Room Air Initial Baseline)] Oxygen Delivery Method Room Air Weight: 129 lb 10.109 oz Body Mass Index (BMI) 19.1 Intake and Output for Last 24 Hours 05/01/18 05/02/18 05/03/18 23:59 23:59 23:59 Intake Total 1534 / 1534 623 / 623 1462 / 1462 Output Total 1100 / 1100 1600 / 1600 Balance 434 / 434 -977 / -977 1462 / 1462 General: Alert, Oriented x3, Cooperative, No apparent distress HEENT: Atraumatic, PERRLA, EOMI, Normocephalic Oral: Moist Mucosa Neck: Supple, No JVD Lungs: Clear to auscultation, Normal air movement, No rhonchi, No wheeze, No rales Cardiovascular: Regular rate, Regular Rhythm, Normal S1, Normal S2, No murmurs Abdomen: Soft, Non Tender, Non-Distended, No Hepato-splenomegaly Extremities: No edema, Capillary Refill Less than 3 Seconds Skin: No rashes, No breakdown Neurological: Neuro grossly intact, Sensory exam intact to light touch and pain Psych/Mental Status: Normal Affect, Appropriate Laboratory Results 04/29/18 09:30: MONTY-1 Antibody Not Reportable, SS-A/Ro IgG Antibody Not Reportable, SS-B/La IgG Antibody Not Reportable, Sm (Ugarte) Antibody Not Reportable, TUG MASTER Antibody Not Reportable, Scl-70 Scleroderma Ab Not Reportable, Double Strand DNA Ab Not Reportable, Centromere B Antibody Not Reportable 04/29/18 09:30: c-ANCA Antibody <1:20, Atypical p-ANCA <1:20, p-ANCA Antibody <1:20, Complement C3 153, Complement C4 29 05/03/18 06:51: Sodium 139, Potassium 4.3, Chloride 109 H, Carbon Dioxide 20.0 L, Anion Gap 10, BUN 40 H, Creatinine 3.08 H, Estim Creat Clear Calc 29.43, Est GFR (MDRD) Af Amer 31 L, Est GFR (MDRD) Non-Af 26 L, BUN/Creatinine Ratio 13.0, Glucose 93, Calcium 8.6 05/03/18 06:51: WBC 5.9, RBC 4.14 L, Hgb 12.7 L, Hct 38.8 L, MCV 93.7, MCH 30.7, MCHC 32.7, RDW 13.1, RDW Differential 45.2 H, Plt Count 218, MPV 10.8, Immature Gran % (Auto) 0.000, Neut % (Auto) 67.7, Lymph % (Auto) 21.0, [place] % (Auto) 9.6, Eos % (Auto) 1.2, Baso % (Auto) 0.5, Absolute Neuts (auto) 4.0, Absolute Lymphs (auto) 1.25, Total Counted Not Reportable Current Medications Acetaminophen (Tylenol) 650 mg PO Q4H PRN PRN PRN Reason: HEADACHE Last Admin: 05/02/18 17:03 Dose: 650 mg Acetaminophen/Butalbital/Caffeine (Fioricet) 1 - 2 tablet PO Q4H PRN PRN PRN Reason: moderate to severe headache Last Admin: 05/01/18 07:49 Dose: 2 tablet Al Hydroxide/Mg Hydroxide (Mylanta Ii) 30 ml PO Q6H PRN PRN PRN Reason: Gastric burning Carvedilol (Coreg) 6.25 mg PO BID BON Last Admin: 05/03/18 09:10 Dose: 6.25 mg Hydralazine HCl (Apresoline Iv) 10 mg IV Q4H PRN PRN Reason: hypertension Last Admin: 05/03/18 11:27 Dose: 10 mg Hydralazine HCl (Apresoline) 75 mg PO TID [facility] Last Admin: 05/03/18 12:54 Dose: 75 mg Sodium Chloride () 1,000 mls @ 50 mls/hr IV .Q20H [facility] Last Admin: 05/03/18 05:53 Dose: 50 mls/hr Magnesium Hydroxide (Milk Of Magnesia) 30 ml PO DAILY PRN PRN PRN Reason: Constipation Nicotine (Nicoderm Cq (Pbkc)) 21 mg TRANSDERM. DAILY [facility] Last Admin: 05/03/18 09:10 Dose: 21 mg Nifedipine (Procardia Xl) 60 mg PO DAILY [facility] Last Admin: 05/03/18 09:10 Dose: 60 mg Ondansetron HCl (Zofran) 4 mg IV Q8H PRN PRN PRN Reason: NAUSEA Last Admin: 04/29/18 20:19 Dose: 4 mg Oxycodone HCl (Oxyir) 5 mg PO Q4H PRN PRN PRN Reason: SEVERE PAIN (6-10/10) Last Admin: 05/03/18 09:11 Dose: 5 mg Senna/Docusate Sodium (Senokot-S, Lola-Colace) 2 tablet PO BID PRN PRN Reason: constipation Sodium Chloride () 5 - 15 ml IV UD PRN PRN Reason: SALINE FLUSH Last Admin: 05/01/18 05:34 Dose: 10 ml Sodium Chloride ([place] Nasal [place]) 2 spray NASAL BID PRN PRN PRN Reason: NASAL DRYNESS Zolpidem Tartrate (Ambien (Generic)) 5 mg PO QHS PRN PRN PRN Reason: INSOMNIA Medical Necessity - Tobacco Use Smoking Status: Current every day smoker Tobacco Use: Cigarettes Assessment/Plan All Active Problems Hypertensive emergency (Acute) Headache (Acute) Kidney failure (Acute) 1. hypertensive emergency with headache and blurry vision/YAMILET/Headache and blurry vision - CT head was done in the ER and reported normal - Cardiology recommended Procardia and discontinue verapamil, c/w coreg and hydralazine - 2D echo reported as normal LV size and function with mild LVH, EF of 65%, and mild pulmonary hypertension with an RVSP of approximately 42 mmHg. - Patient's diastolic blood pressure is still elevated. Procardia dose 60 mg daily. - Renal biopsy pending, US with degenerative cortex, avoid nephrotoxic agents - appreciate nephrology assistance, YAMILET - Outpatient f/u with ophtho if blurry vision does not resolve with BP control DVT: Low risk. Early ambulation encouraged. Code Visit Inpatient E&M: 12675 Subs Hosp L2
--- NOTE | 2018-05-03 13:49 | PN_ITS ---
Patient Problems: Active and Suspected Problems Hypertensive emergency (Acute) Headache (Acute) Kidney failure (Acute) Subjective: Doing well pain is managed, and headache is improved. Still with elevated blood pressures Vitals/I&O's: Vital Signs Temp Pulse Resp BP Pulse Ox 98.2 F 86 17 154/118 H 98 05/03/18 12:55 05/03/18 12:55 05/03/18 12:55 05/03/18 12:55 05/03/18 12:55 Oxygen Flow Rate (L/min) 2 Oxygen Delivery Method [11] Room Air Oxygen Delivery Method [10] Room Air Oxygen Delivery Method [9] Room Air Oxygen Delivery Method [8] Room Air Oxygen Delivery Method [7] Room Air Oxygen Delivery Method [6] Room Air Oxygen Delivery Method [5] Room Air Oxygen Delivery Method [4] Room Air Oxygen Delivery Method [3] Room Air Oxygen Delivery Method [2] Room Air Oxygen Delivery Method [1 ( Room Air Initial Baseline)] Oxygen Delivery Method Room Air Weight: 129 lb 10.109 oz Body Mass Index (BMI) 19.1 Intake and Output for Last 24 Hours 05/01/18 05/02/18 05/03/18 23:59 23:59 23:59 Intake Total 1534 / 1534 623 / 623 1462 / 1462 Output Total 1100 / 1100 1600 / 1600 Balance 434 / 434 -977 / -977 1462 / 1462 General: Alert, Oriented x3, Cooperative, No apparent distress HEENT: Atraumatic, PERRLA, EOMI, Normocephalic Oral: Moist Mucosa Neck: Supple, No JVD Lungs: Clear to auscultation, Normal air movement, No rhonchi, No wheeze, No rales Cardiovascular: Regular rate, Regular Rhythm, Normal S1, Normal S2, No murmurs Abdomen: Soft, Non Tender, Non-Distended, No Hepato-splenomegaly Extremities: No edema, Capillary Refill Less than 3 Seconds Skin: No rashes, No breakdown Neurological: Neuro grossly intact, Sensory exam intact to light touch and pain Psych/Mental Status: Normal Affect, Appropriate Laboratory Results 04/29/18 09:30: MONTY-1 Antibody Not Reportable, SS-A/Ro IgG Antibody Not Reportable, SS-B/La IgG Antibody Not Reportable, Sm (Ugarte) Antibody Not Reportable, SELF PROPELLED DREDGE OPERATOR Antibody Not Reportable, Scl-70 Scleroderma Ab Not Reportable, Double Strand DNA Ab Not Reportable, Centromere B Antibody Not Reportable 04/29/18 09:30: c-ANCA Antibody <1:20, Atypical p-ANCA <1:20, p-ANCA Antibody <1:20, Complement C3 153, Complement C4 29 05/03/18 06:51: Sodium 139, Potassium 4.3, Chloride 109 H, Carbon Dioxide 20.0 L , Anion Gap 10, BUN 40 H, Creatinine 3.08 H, Estim Creat Clear Calc 29.43, Est GFR (MDRD) Af Amer 31 L, Est GFR (MDRD) Non-Af 26 L, BUN/Creatinine Ratio 13.0, Glucose 93, Calcium 8.6 05/03/18 06:51: WBC 5.9, RBC 4.14 L, Hgb 12.7 L, Hct 38.8 L, MCV 93.7, MCH 30.7, MCHC 32.7, RDW 13.1, RDW Differential 45.2 H, Plt Count 218, MPV 10.8, Immature Gran % (Auto) 0.000, Neut % (Auto) 67.7, Lymph % (Auto) 21.0, [place] % (Auto) 9.6, Eos % (Auto) 1.2, Baso % (Auto) 0.5, Absolute Neuts (auto) 4.0, Absolute Lymphs (auto) 1.25, Total Counted Not Reportable Current Medications Acetaminophen (Tylenol) 650 mg PO Q4H PRN PRN PRN Reason: HEADACHE Last Admin: 05/02/18 17:03 Dose: 650 mg Acetaminophen/Butalbital/Caffeine (Fioricet) 1 - 2 tablet PO Q4H PRN PRN PRN Reason: moderate to severe headache Last Admin: 05/01/18 07:49 Dose: 2 tablet Al Hydroxide/Mg Hydroxide (Mylanta Ii) 30 ml PO Q6H PRN PRN PRN Reason: Gastric burning Carvedilol (Coreg) 6.25 mg PO BID BON Last Admin: 05/03/18 09:10 Dose: 6.25 mg Hydralazine HCl (Apresoline Iv) 10 mg IV Q4H PRN PRN Reason: hypertension Last Admin: 05/03/18 11:27 Dose: 10 mg Hydralazine HCl (Apresoline) 75 mg PO TID [facility] Last Admin: 05/03/18 12:54 Dose: 75 mg Sodium Chloride () 1,000 mls @ 50 mls/hr IV .Q20H [facility] Last Admin: 05/03/18 05:53 Dose: 50 mls/hr Magnesium Hydroxide (Milk Of Magnesia) 30 ml PO DAILY PRN PRN PRN Reason: Constipation Nicotine (Nicoderm Cq (Pbkc)) 21 mg TRANSDERM. DAILY [facility] Last Admin: 05/03/18 09:10 Dose: 21 mg Nifedipine (Procardia Xl) 60 mg PO DAILY [facility] Last Admin: 05/03/18 09:10 Dose: 60 mg Ondansetron HCl (Zofran) 4 mg IV Q8H PRN PRN PRN Reason: NAUSEA Last Admin: 04/29/18 20:19 Dose: 4 mg Oxycodone HCl (Oxyir) 5 mg PO Q4H PRN PRN PRN Reason: SEVERE PAIN (6-10/10) Last Admin: 05/03/18 09:11 Dose: 5 mg Senna/Docusate Sodium (Senokot-S, Lola-Colace) 2 tablet PO BID PRN PRN Reason: constipation Sodium Chloride () 5 - 15 ml IV UD PRN PRN Reason: SALINE FLUSH Last Admin: 05/01/18 05:34 Dose: 10 ml Sodium Chloride ([place] Nasal [place]) 2 spray NASAL BID PRN PRN PRN Reason: NASAL DRYNESS Zolpidem Tartrate (Ambien (Generic)) 5 mg PO QHS PRN PRN PRN Reason: INSOMNIA Medical Necessity - Tobacco Use Smoking Status: Current every day smoker Tobacco Use: Cigarettes Assessment/Plan All Active Problems Hypertensive emergency (Acute) Headache (Acute) Kidney failure (Acute) 1. hypertensive emergency with headache and blurry vision/YAMILET/Headache and blurry vision - CT head was done in the ER and reported normal - Cardiology recommended Procardia and discontinue verapamil, c/w coreg and hydralazine - 2D echo reported as normal LV size and function with mild LVH, EF of 65%, and mild pulmonary hypertension with an RVSP of approximately 42 mmHg. - Patient's diastolic blood pressure is still elevated. Procardia dose 60 mg daily. - Renal biopsy pending, US with degenerative cortex, avoid nephrotoxic agents - appreciate nephrology assistance, YAMILET - Outpatient f/u with ophtho if blurry vision does not resolve with BP control DVT: Low risk. Early ambulation encouraged. Code Visit Inpatient E&M: 39878 Subs Hosp L2
[2018-05-03] MEDS: 0.9% NaCl Peripheral Flush Adult/Peds IV (14:51)
--- NOTE | 2018-05-03 15:58 | EKG12_ITS ---
Test Reason : PALPS Blood Pressure : / mmHG Vent. Rate : 098 BPM Atrial Rate : 098 BPM P-R Int : 148 ms QRS Dur : 094 ms QT Int : 336 ms P-R-T Axes : 075 086 069 degrees QTc Int : 428 ms Normal sinus rhythm Right atrial enlargement Borderline ECG When compared with ECG of 30-APR-2018 01:20, MANUAL COMPARISON REQUIRED, DATA IS UNCONFIRMED Confirmed by MATHEW COBURN ([id number]), industrial editor REAGAN VILLALOBOS ([id number] on 05/17/2018 1:13:02 PM Referred By: KEVIN Confirmed By:MATHEW COBURN
--- NOTE | 2018-05-03 16:05 | NURSING ---
Patient reports that he is feeling like his heart is racing and is dizzy. Vitals obtained. Lungs sounds clear/dim. Placed in trendelenberg position and cool compress applied to forehead. EKG ordered. Dr. Owens made aware. See physician notification documentation.
--- NOTE | 2018-05-03 17:13 | PCM.PN.REN ---
Patient Problems: Active and Suspected Problems Hypertensive emergency (Acute) Headache (Acute) Kidney failure (Acute) Subjective: Following for YAMILET. Pt feels tired and lightheaded today. Flank pain is better than yesterday. No CP or SOB. No gross hematuria. - Physical Exam General: Alert, Oriented x3 HEENT: Atraumatic, Normocephalic Oral: Moist Mucosa Neck: Supple Cardiovascular: Normal S1, Normal S2, No murmurs Abdomen: Bowel Sounds Present, Soft, Non Tender Extremities: No edema Skin: No rashes Vital Signs Temp Pulse Resp BP Pulse Ox 98.1 F 87 16 149/101 H 97 05/03/18 14:42 05/03/18 14:42 05/03/18 14:42 05/03/18 14:42 05/03/18 14:42 Oxygen Flow Rate (L/min) 2 Oxygen Delivery Method [11] Room Air Oxygen Delivery Method [10] Room Air Oxygen Delivery Method [9] Room Air Oxygen Delivery Method [8] Room Air Oxygen Delivery Method [7] Room Air Oxygen Delivery Method [6] Room Air Oxygen Delivery Method [5] Room Air Oxygen Delivery Method [4] Room Air Oxygen Delivery Method [3] Room Air Oxygen Delivery Method [2] Room Air Oxygen Delivery Method [1 ( Room Air Initial Baseline)] Oxygen Delivery Method Room Air Weight: 58.8 kg Body Mass Index (BMI) 19.1 Intake and Output for Last 24 Hours 05/01/18 05/02/18 05/03/18 23:59 23:59 23:59 Intake Total 1534 / 1534 623 / 623 1462 / 1462 Output Total 1100 / 1100 1600 / 1600 Balance 434 / 434 -977 / -977 1462 / 1462 Laboratory Tests Past 24 Hrs 04/29/18 04/29/18 05/03/18 09:30 09:30 06:51 WBC RBC Hgb Hct MCV MCH MCHC RDW RDW Differential Plt Count MPV Immature Gran % (Auto) Neut % (Auto) Lymph % (Auto) [place] % (Auto) Eos % (Auto) Baso % (Auto) Absolute Neuts (auto) Absolute Lymphs (auto) Total Counted Sodium 139 Potassium 4.3 Chloride 109 H Carbon Dioxide 20.0 L Anion Gap 10 BUN 40 H Creatinine 3.08 H Estim Creat Clear Calc 29.43 Est GFR (MDRD) Af Amer 31 L Est GFR (MDRD) Non-Af 26 L BUN/Creatinine Ratio 13.0 Glucose 93 Calcium 8.6 c-ANCA Antibody <1:20 Atypical p-ANCA <1:20 p-ANCA Antibody <1:20 MONTY-1 Antibody Not Reportable SS-A/Ro IgG Antibody Not Reportable SS-B/La IgG Antibody Not Reportable Sm (Ugarte) Antibody Not Reportable COMPOUNDING SCALER Antibody Not Reportable Scl-70 Scleroderma Ab Not Reportable Double Strand DNA Ab Not Reportable Centromere B Antibody Not Reportable Complement C3 153 Complement C4 29 05/03/18 06:51 WBC 5.9 RBC 4.14 L Hgb 12.7 L Hct 38.8 L MCV 93.7 MCH 30.7 MCHC 32.7 RDW 13.1 RDW Differential 45.2 H Plt Count 218 MPV 10.8 Immature Gran % (Auto) 0.000 Neut % (Auto) 67.7 Lymph % (Auto) 21.0 [place] % (Auto) 9.6 Eos % (Auto) 1.2 Baso % (Auto) 0.5 Absolute Neuts (auto) 4.0 Absolute Lymphs (auto) 1.25 Total Counted Not Reportable Sodium Potassium Chloride Carbon Dioxide Anion Gap BUN Creatinine Estim Creat Clear Calc Est GFR (MDRD) Af Amer Est GFR (MDRD) Non-Af BUN/Creatinine Ratio Glucose Calcium c-ANCA Antibody Atypical p-ANCA p-ANCA Antibody MONTY-1 Antibody SS-A/Ro IgG Antibody SS-B/La IgG Antibody Sm (Ugarte) Antibody COMPOUNDING SCALER Antibody Scl-70 Scleroderma Ab Double Strand DNA Ab Centromere B Antibody Complement C3 Complement C4 Medical Necessity - Tobacco Use Smoking Status: Current every day smoker Tobacco Use: Cigarettes Assessment/Plan All Active Problems Hypertensive emergency (Acute) Headache (Acute) Kidney failure (Acute) 1. Acute kidney injury. Associated with hematuria and proteinuria. 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 PANTERA, ANCA and complements are normal. SCr has stabilized in the past 48 hrs, and the pt is not overtly uremic. There is no urgent need for kidney replacement therapy (dialysis) at this time. s/p kidney biopsy 05/02/18-result may take up to a week. Therefore, if SCr remains below 3.5 mg/dL tomorrow and there is no significant pain (from Bx) or drop in Hgb, then he can go home from my standpoint. I will arrange outpt follow up to go over the result of the biopsy within 1-2 weeks. Current medications were reviewed and are appropriately dosed for current renal function. 2. Hypertension. Difficult to tell if HTN is the cause of renal failure or if renal failure has led to difficult to control BP at this point. Nevertheless, treatment of HTN will help decrease injury to the kidneys. Discharge held because of high DBP. Will defer titration of BP medications to stencil cutter/hospitalist to avoid confusion. D/w Dr. Owens. Please call me if there is any question at [phone]. Thank you.
--- NOTE | 2018-05-03 17:19 | PN.RENAL_ITS ---
Patient Problems: Active and Suspected Problems Hypertensive emergency (Acute) Headache (Acute) Kidney failure (Acute) Subjective: Following for YAMILET. Pt feels tired and lightheaded today. Flank pain is better than yesterday. No CP or SOB. No gross hematuria. - Physical Exam General: Alert, Oriented x3 HEENT: Atraumatic, Normocephalic Oral: Moist Mucosa Neck: Supple Cardiovascular: Normal S1, Normal S2, No murmurs Abdomen: Bowel Sounds Present, Soft, Non Tender Extremities: No edema Skin: No rashes Vital Signs Temp Pulse Resp BP Pulse Ox 98.1 F 87 16 149/101 H 97 05/03/18 14:42 05/03/18 14:42 05/03/18 14:42 05/03/18 14:42 05/03/18 14:42 Oxygen Flow Rate (L/min) 2 Oxygen Delivery Method [11] Room Air Oxygen Delivery Method [10] Room Air Oxygen Delivery Method [9] Room Air Oxygen Delivery Method [8] Room Air Oxygen Delivery Method [7] Room Air Oxygen Delivery Method [6] Room Air Oxygen Delivery Method [5] Room Air Oxygen Delivery Method [4] Room Air Oxygen Delivery Method [3] Room Air Oxygen Delivery Method [2] Room Air Oxygen Delivery Method [1 ( Room Air Initial Baseline)] Oxygen Delivery Method Room Air Weight: 58.8 kg Body Mass Index (BMI) 19.1 Intake and Output for Last 24 Hours 05/01/18 05/02/18 05/03/18 23:59 23:59 23:59 Intake Total 1534 / 1534 623 / 623 1462 / 1462 Output Total 1100 / 1100 1600 / 1600 Balance 434 / 434 -977 / -977 1462 / 1462 Laboratory Tests Past 24 Hrs 04/29/18 04/29/18 05/03/18 09:30 09:30 06:51 WBC RBC Hgb Hct MCV MCH MCHC RDW RDW Differential Plt Count MPV Immature Gran % (Auto) Neut % (Auto) Lymph % (Auto) [place]irie % (Auto) Eos % (Auto) Baso % (Auto) Absolute Neuts (auto) Absolute Lymphs (auto) Total Counted Sodium 139 Potassium 4.3 Chloride 109 H Carbon Dioxide 20.0 L Anion Gap 10 BUN 40 H Creatinine 3.08 H Estim Creat Clear Calc 29.43 Est GFR (MDRD) Af Amer 31 L Est GFR (MDRD) Non-Af 26 L BUN/Creatinine Ratio 13.0 Glucose 93 Calcium 8.6 c-ANCA Antibody <1:20 Atypical p-ANCA <1:20 p-ANCA Antibody <1:20 MONTY-1 Antibody Not Reportable SS-A/Ro IgG Antibody Not Reportable SS-B/La IgG Antibody Not Reportable Sm (Ugarte) Antibody Not Reportable [employer]ER Antibody Not Reportable Scl-70 Scleroderma Ab Not Reportable Double Strand DNA Ab Not Reportable Centromere B Antibody Not Reportable Complement C3 153 Complement C4 29 05/03/18 06:51 WBC 5.9 RBC 4.14 L Hgb 12.7 L Hct 38.8 L MCV 93.7 MCH 30.7 MCHC 32.7 RDW 13.1 RDW Differential 45.2 H Plt Count 218 MPV 10.8 Immature Gran % (Auto) 0.000 Neut % (Auto) 67.7 Lymph % (Auto) 21.0 Prairie % (Auto) 9.6 Eos % (Auto) 1.2 Baso % (Auto) 0.5 Absolute Neuts (auto) 4.0 Absolute Lymphs (auto) 1.25 Total Counted Not Reportable Sodium Potassium Chloride Carbon Dioxide Anion Gap BUN Creatinine Estim Creat Clear Calc Est GFR (MDRD) Af Amer Est GFR (MDRD) Non-Af BUN/Creatinine Ratio Glucose Calcium c-ANCA Antibody Atypical p-ANCA p-ANCA Antibody MONTY-1 Antibody SS-A/Ro IgG Antibody SS-B/La IgG Antibody Sm (Ugarte) Antibody [employer]ER Antibody Scl-70 Scleroderma Ab Double Strand DNA Ab Centromere B Antibody Complement C3 Complement C4 Medical Necessity - Tobacco Use Smoking Status: Current every day smoker Tobacco Use: Cigarettes Assessment/Plan All Active Problems Hypertensive emergency (Acute) Headache (Acute) Kidney failure (Acute) 1. Acute kidney injury. Associated with hematuria and proteinuria. 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 PANTERA, ANCA and complements are normal. SCr has stabilized in the past 48 hrs, and the pt is not overtly uremic. There is no urgent need for kidney replacement therapy (dialysis) at this time. s/p kidney biopsy 05/02/18-result may take up to a week. Therefore, if SCr remains below 3.5 mg/dL tomorrow and there is no significant pain (from Bx) or drop in Hgb, then he can go home from my standpoint. I will arrange outpt follow up to go over the result of the biopsy within 1-2 weeks. Current medications were reviewed and are appropriately dosed for current renal function. 2. Hypertension. Difficult to tell if HTN is the cause of renal failure or if renal failure has led to difficult to control BP at this point. Nevertheless, treatment of HTN will help decrease injury to the kidneys. Discharge held because of high DBP. Will defer titration of BP medications to stock mixer/hospitalist to avoid confusion. D/w Dr. Owens. Please call me if there is any question at [phone]. Thank you.
[2018-05-04] VITALS (10 sets, daily range): BP systolic 153–162; BP diastolic 103–114; PULSE 78–102; RESP 16–18; TEMP 36.6–37.2; O2SAT 97–98
[2018-05-04] MEDS: 0.9% Normal Saline 1,000 ML 50 ML IV (01:57)
[2018-05-04] MEDS: Acetaminophen 325 MG Tablet 650 MG PO (02:02)
[2018-05-04] MEDS: hydrALAZINE 50 MG Tablet 75 MG PO ×2 (05:12→12:38)
[2018-05-04 06:55] LABS: Anion Gap 9 (5-15); BUN 38 mg/dL (7-18); BUN/Creat Ratio 12.1 RATIO (10-20); Calcium,Total 8.6 mg/dL (8.5-10.1); Chloride 108 mmol/L (98-107); Creatinine, Serum 3.15 mg/dL (0.70-1.30); EST Glomerular Filtration Rate 25 mL/min (>60); Est Glom Filt Rate - Afr Amer 30 mL/min (>60); Estimated Creatinine Clearance 28.78 ml/min; Glucose 98 mg/dL (74-106); Potassium 4.1 mmol/L (3.5-5.1); Sodium Level 138 mmol/L (136-145)
[2018-05-04] MEDS: Carvedilol 6.25 MG Tablet PO (08:21)
[2018-05-04] MEDS: NIFEdipine 60 MG Tablet PO (08:21)
--- NOTE | 2018-05-04 08:30 | NURSING ---
called to pt bedside. pt is vomiting into trash can. states it came on suddenly. he had used the HOB button to raise himself in prep for trip to . N/V was very sudden and now he feels much better. able to ambulate to BR and return to bed w/no diff.
[2018-05-04] MEDS: NIFEdipine 30 MG Tablet PO (10:49)
== END 2018-05-04 13:01 | disposition home or self-care (01) | DRG 305 ==
LOC: ED 09:15 → ICU 11:52 → PCU 05-02 06:42
PROVIDERS: Internal Medicine Nephrology; Admitting Provider Internal Medicine; Emergency Provider Emergency Medicine; Family Provider Family Medicine; PCP Family Medicine; Visit Provider Family Medicine
DX: I16.1 Hypertensive emergency (principal); N17.9 Acute kidney failure, unspecified; R51 Headache; I27.20 Pulmonary hypertension, unspecified; F17.210 Nicotine dependence, cigarettes, uncomplicated; H53.8 Other visual disturbances
CPT/HCPCS: 36415; 70450; 71046; 76770; 76942; 80048; 80076; 80307; 80320; 81001; 82436; 82570; 83735; 84133; 84156; 84300; 84484; 85025; 85027; 85610; 85730; 86038; 86160; 86225; 86235; 86256; 88305; 88313; 88346; 88348; 88350; 93005; 93306; 93975; 97802; 99157; 99284; J7030; J7040; J7050; Q9957; A4216; G0480; J2405

== ENCOUNTER → 2018-05-20 14:55 | Outpatient (CLI) | payer BC, SELFPAY ==
[2018-04-29 12:22] VITALS: BMI 19.1
[2018-05-20 17:56] LABS: Hematocrit 33.1 % (40-54); Hemoglobin 10.8 g/dl (13.0-16.5); Mean Corp Hgb Conc 32.6 g/gl (32-36); Mean Corpuscular Hgb 31.3 pg (27.0-32.0); Mean Corpuscular Volume 95.9 fL (80-94); Mean Platelet Vol. 10.1 fl (6.2-12.0); Platelet Count 574 K/mm3 (150-450); RBC Distribution Width CV 12.1 % (11.6-14.6); RBC Distribution Width SD 41.1 fl (35.1-43.9); Red Blood Count 3.45 M/mm3 (4.6-6.2); White Blood Count 9.4 K/mm3 (4.4-11.0)
[2018-05-20 18:09] LABS: Albumin, Serum 3.5 g/dL (3.2-5.0); BUN 42 mg/dL (7-18); BUN/Creat Ratio 12.9 RATIO (10-20); Calcium,Total 9.5 mg/dL (8.5-10.1); Chloride 102 mmol/L (98-107); Creatinine, Serum 3.26 mg/dL (0.70-1.30); EST Glomerular Filtration Rate 24 mL/min (>60); Est Glom Filt Rate - Afr Amer 29 mL/min (>60); Glucose 82 mg/dL (74-106); Phosphorus 5.7 mg/dL (2.5-4.9); Potassium 4.7 mmol/L (3.5-5.1); Sodium Level 138 mmol/L (136-145)
[2018-05-20 18:22] LABS: Scan Indicated on CBC? Y/N NO
[2018-05-20 20:30] LABS: PTHIN 107.1 pg/mL (18.4-80.1)
== END ==
PROVIDERS: Family Provider Family Medicine; PCP Family Medicine; Visit Provider Physician Assistant Medical
DX: N17.9 Acute kidney failure, unspecified (principal)
CPT/HCPCS: 36415; 80069; 82306; 83970; 85027

== ENCOUNTER → 2018-05-23 09:43 | Outpatient (CLI) | payer BC, SELFPAY ==
[2018-04-29 12:22] VITALS: BMI 19.1
[2018-05-23 12:31] LABS: Protein, Urine (Random) 187.5 mg/dL (<11.9); Protein:Creat Ratio 2807 mg/g CRE (0-200)
== END ==
PROVIDERS: Family Provider Family Medicine; PCP Family Medicine; Referring Provider Physician Assistant Medical; Visit Provider Physician Assistant Medical
DX: N17.9 Acute kidney failure, unspecified (principal)
CPT/HCPCS: 82570; 84156

== ENCOUNTER → 2018-06-08 14:00 | Outpatient (CLI) | payer BC, SELFPAY ==
[2018-05-27 14:32] VITALS: BMI 19.1
[2018-06-08 15:50] LABS: Absolute Lymphocyte Count 1.77 X10^3/ul (0.83-4.51); Absolute Neutrophil Count 6.3 X10^3/uL (2.0-7.7); Basophil# 0.07 X10^3/uL; Basophil% 0.7 % (0-1); Eosinophil# 0.41 X10^3/uL; Eosinophils% 4.4 % (0-5); Hematocrit 35.9 % (40-54); Hemoglobin 11.5 g/dl (13.0-16.5); Lymphocyte # 1.77 X10^3/ul (4.0); Lymphocyte % 18.9 % (19-41); Mean Corpuscular Hgb 30.4 pg (27.0-32.0); Mean Platelet Vol. 10.4 fl (6.2-12.0); Monocyte# 0.86 X10^3/uL; Monocyte% 9.2 % (0-10); Neutrophil # 6.25 X10^3/uL (2.7-7.7); Neutrophil % 66.6 % (47-70); Platelet Count 411 K/mm3 (150-450); RBC Distribution Width CV 12.6 % (11.6-14.6); RBC Distribution Width SD 43.3 fl (35.1-43.9); Red Blood Count 3.78 M/mm3 (4.6-6.2); White Blood Count 9.4 K/mm3 (4.4-11.0)
[2018-06-08 15:53] LABS: POSITIVE DIFFERENTIAL NO
[2018-06-08 15:54] LABS: POSITIVE COUNT NO; POSITIVE MORPHOLOGY NO
[2018-06-08 16:02] LABS: Albumin, Serum 3.7 g/dL (3.2-5.0); BUN 28 mg/dL (7-18); BUN/Creat Ratio 8.9 RATIO (10-20); Calcium,Total 9.1 mg/dL (8.5-10.1); Chloride 107 mmol/L (98-107); Creatinine, Serum 3.15 mg/dL (0.70-1.30); EST Glomerular Filtration Rate 25 mL/min (>60); Est Glom Filt Rate - Afr Amer 30 mL/min (>60); Glucose 96 mg/dL (74-106); Potassium 4.9 mmol/L (3.5-5.1); Sodium Level 139 mmol/L (136-145)
[2018-06-08 16:12] LABS: PTHIN 85.5 pg/mL (18.4-80.1)
[2018-06-08 16:29] LABS: Vitamin D,25 Hydroxy 13.2 ng/mL (29.95-100.01)
== END ==
PROVIDERS: Family Provider Family Medicine; PCP Family Medicine; Visit Provider Family Medicine
DX: N17.9 Acute kidney failure, unspecified (principal)
CPT/HCPCS: 36415; 80069; 82306; 83970; 85025

== ENCOUNTER → 2018-06-09 09:39 | Outpatient (CLI) | payer BC, SELFPAY ==
[2018-05-27 14:32] VITALS: BMI 19.1
[2018-06-09 12:31] LABS: Protein, Urine (Random) 150.6 mg/dL (<11.9); Protein:Creat Ratio 2535 mg/g CRE (0-200)
== END ==
PROVIDERS: Family Provider Family Medicine; PCP Family Medicine; Referring Provider Physician Assistant Medical; Visit Provider Physician Assistant Medical
DX: N17.9 Acute kidney failure, unspecified (principal)
CPT/HCPCS: 82570; 84156

== ENCOUNTER 2018-06-17 22:10 | Emergency (ER) | payer BC, SELFPAY ==
[2018-05-27 14:32] VITALS: BMI 19.1
[2018-06-17 22:12] VITALS: BP 172/76; PULSE 112; RESP 18; TEMP 36.9; O2SAT 98; BMI 20.1
--- NOTE | 2018-06-17 22:31 | ED.DCSUM_ITS ---
- ER Visit Summary Date of Service: 06/17/18 Chief Complaint: Fever, foot pain History of Present Illness: The patient is a 28 M with recent diagnosis of kidney injury and diminished kidney function who is in the hospital at the end of April presents to the emergency department with fever and foot pain. Patient has been following with nephrology. He had an outpatient biopsy. He states that 2 days ago, he was placed on Lasix. He states that he was having some edema in his feet. He does wear compression stockings and seems like it helps. He states today, he had a lot of pain that he described as diffuse muscle aches. He is also had a fever of 102. He has had a scant cough. He is also had a mild sore throat. He denies any other new medications. He is otherwise been in his normal state of health. Physical Examination: Vital signs reviewed General: Well-nourished, well-developed Head: Normocephalic, atraumatic Eyes: Pupils equal and reactive, extraocular muscles intact Neck, supple, no lymphadenopathy Heart: Regular rate and rhythm Respiratory: No distress, clear bilaterally Abdomen: Soft, nontender, nondistended, no peritoneal signs Back: Nontender Extremities: Nontender, 1+ edema, no cords Skin: Normal color no rash Neuro: Alert and oriented, no focal or lateralizing deficits Test Results: [] Emergency Department Course and Treatment: The patient does have symmetric edema of his lower extremities. It is 1+. There is no skin breakdown. There is no erythema or evidence of cellulitis. He is also had a mild cough and sore throat. I did obtain a rapid flu which was negative. His chest x-ray shows no filtrated process or evidence of volume overload. Screening labs do show mild leukocytosis. His kidney function is stable. I do feel that this is more likely a viral illness or even an early influenza even though his rapid flu was negative. I do feel that the patient is safe for outpatient therapy. He is comfortable with this plan of care. He is mostly concerned about his kidney function. He will continue Tylenol as needed. He was counseled on concerning symptoms and reasons to return. The patient will be discharged home. Treatment Plan: [] Disposition: Discharge Impression: 1. Febrile illness This note was generated with [employer] dictation software. It may contain incorrect words, spelling, and punctuation that were not noted in review of the chart prior to signing ED Disposition - Plan for ED Patient: Disposition: Home or Assisted Living Instructions: ED Fever Unconf Cause Referrals: Ernesto Mcnally MD [Primary Care Provider] -
[2018-06-17 22:42] VITALS: BP 172/76; PULSE 98; RESP 16; TEMP 36.9; O2SAT 97
[2018-06-17 22:45] LABS: Absolute Lymphocyte Count 1.93 X10^3/ul (0.83-4.51); Absolute Neutrophil Count 11.9 X10^3/uL (2.0-7.7); Basophil# 0.07 X10^3/uL; Basophil% 0.5 % (0-1); Eosinophil# 0.28 X10^3/uL; Eosinophils% 1.8 % (0-5); Hematocrit 31.6 % (40-54); Hemoglobin 10.6 g/dl (13.0-16.5); Lymphocyte # 1.93 X10^3/ul (4.0); Lymphocyte % 12.7 % (19-41); Mean Corp Hgb Conc 33.5 g/gl (32-36); Mean Corpuscular Hgb 30.9 pg (27.0-32.0); Mean Corpuscular Volume 92.1 fL (80-94); Monocyte# 1.01 X10^3/uL; Monocyte% 6.6 % (0-10); Neutrophil # 11.89 X10^3/uL (2.7-7.7); Neutrophil % 78.2 % (47-70); POSITIVE COUNT NO; POSITIVE DIFFERENTIAL NO; POSITIVE MORPHOLOGY NO; Platelet Count 342 K/mm3 (150-450); RBC Distribution Width CV 12.6 % (11.6-14.6); RBC Distribution Width SD 42.5 fl (35.1-43.9); Red Blood Count 3.43 M/mm3 (4.6-6.2); White Blood Count 15.2 K/mm3 (4.4-11.0)
--- NOTE | 2018-06-17 22:50 | RAD_ITS ---
STUDY: X-RAY CHEST REASON FOR EXAM: Male, 28 years old. Fever, swelling TECHNIQUE: PA and lateral views of the chest. COMPARISON: 04/29/2018 FINDINGS: EKG leads project over the chest. The lungs are clear and expanded. There is no demonstrated pleural abnormality. Normal size heart. Normal mediastinum and hermelinda. Normal visualized pulmonary arteries. Normal visualized aortic arch and descending thoracic aorta. Normal visualized thoracic spine. Normal visualized ribs, clavicles, and shoulders. There is no demonstrated abnormality of the visualized soft tissue structures of the upper abdomen. RAD/Chest PA and Lateral IMPRESSION: Normal x-ray examination of the chest. Electronically Signed: Seamus Dudley MD at 23:01 EST , Service support ,
[2018-06-17 23:00] LABS: ALB/GLOB Ratio 0.9 RATIO (0.9-2.4); AST(SGOT) 10 U/L (15-37); Alanine Aminotransfer ALT/SGPT 17 U/L (16-61); Albumin, Serum 3.8 g/dL (3.2-5.0); Alkaline Phosphatase 63 U/L (45-117); Anion Gap 10 (5-15); BUN 40 mg/dL (7-18); BUN/Creat Ratio 11.3 RATIO (10-20); Calcium,Total 8.9 mg/dL (8.5-10.1); Chloride 102 mmol/L (98-107); Creatinine, Serum 3.54 mg/dL (0.70-1.30); EST Glomerular Filtration Rate 22 mL/min (>60); Est Glom Filt Rate - Afr Amer 26 mL/min (>60); Estimated Creatinine Clearance 27.45 ml/min; Globulin 4.2 g/dL (2.2-4.2); Glucose 95 mg/dL (74-106); Potassium 3.5 mmol/L (3.5-5.1); Sodium Level 137 mmol/L (136-145)
[2018-06-17 23:22] VITALS: PULSE 105; RESP 14; TEMP 37.2; O2SAT 99
[2018-06-17 23:22] LABS: Bacteria 0 SEEN /hpf (None Seen); Mucous, Urine 0 SEEN /hpf (<or=2+); Squamous Epithelial Cells - UA 0 SEEN /hpf (0-5)
[2018-06-17] MEDS: Acetaminophen 500 MG Tablet 1000 MG PO (23:22)
[2018-06-17 23:25] LABS: Color, Urine Yellow (Yellow); Glucose, Dipstick Normal (Normal); Ketone-Dipstick Negative (Negative); Leukocyte Esterase-Dipstick Negative /ul (Negative); Nitrite-Dipstick Negative (Negative); Occult Blood-Urine 25 /ul (Negative); Protein-Dipstick 500 mg/dl (Negative); Specific Gravity, Urine 1.015 (1.002-1.030); Urine Bilirubin Dipstick Negative (Negative); Urine Clarity Sl. Cloudy (Clear); Urine Urobilinogen Normal (Normal)
[2018-06-17 23:57] VITALS: BP 168/98; PULSE 98; RESP 18; O2SAT 97
[2018-06-18 00:15] LABS: White Blood Cells 0-5 SEEN /hpf (0-5)
[2018-06-18 00:16] LABS: Red Blood Cells-Urine 0-5 SEEN /hpf (0-5)
== END 2018-06-17 23:58 | disposition home or self-care (01) ==
PROVIDERS: Emergency Provider Emergency Medicine; Family Provider Family Medicine; PCP Family Medicine
DX: R50.9 Fever, unspecified (principal); R05 Cough; J02.9 Acute pharyngitis, unspecified; I10 Essential (primary) hypertension
CPT/HCPCS: 71046; 80053; 81001; 85025; 87804; 99285; A4216

== ENCOUNTER → 2018-07-05 16:10 | Outpatient (CLI) | payer BC, SELFPAY ==
[2018-06-17 22:12] VITALS: BMI 20.1
[2018-07-05 18:06] LABS: Anion Gap 16 (5-15); BUN 46 mg/dL (7-18); BUN/Creat Ratio 11.9 RATIO (10-20); Calcium,Total 9.5 mg/dL (8.5-10.1); Chloride 99 mmol/L (98-107); Creatinine, Serum 3.87 mg/dL (0.70-1.30); EST Glomerular Filtration Rate 20 mL/min (>60); Est Glom Filt Rate - Afr Amer 24 mL/min (>60); Glucose 131 mg/dL (74-106); Sodium Level 139 mmol/L (136-145)
[2018-07-05 18:38] LABS: Microalbumin:Creatinine Ratio 1549.3 mg/g CRE (<30 mg/g CRE)
== END ==
PROVIDERS: Family Provider Family Medicine; PCP Family Medicine; Referring Provider Family Medicine; Visit Provider Internal Medicine Nephrology
DX: N17.9 Acute kidney failure, unspecified (principal)
CPT/HCPCS: 36415; 80048; 82043; 82570

== ENCOUNTER → 2018-08-02 16:06 | Outpatient (CLI) | payer BC, SELFPAY ==
[2018-08-02 18:05] LABS: Hemoglobin 10.8 g/dl (13.0-16.5); Mean Corp Hgb Conc 31.8 g/gl (32-36); Mean Corpuscular Hgb 30.3 pg (27.0-32.0); Mean Corpuscular Volume 95.2 fL (80-94); Mean Platelet Vol. 10.8 fl (6.2-12.0); Platelet Count 382 K/mm3 (150-450); Protein, Urine (Random) 85.3 mg/dL (<11.9); Protein:Creat Ratio 1429 mg/g CRE (0-200); RBC Distribution Width CV 12.1 % (11.6-14.6); RBC Distribution Width SD 40.9 fl (35.1-43.9); Red Blood Count 3.57 M/mm3 (4.6-6.2); White Blood Count 9.3 K/mm3 (4.4-11.0)
[2018-08-02 18:08] LABS: Albumin, Serum 4.5 g/dL (3.2-5.0); BUN 45 mg/dL (7-18); BUN/Creat Ratio 10.8 RATIO (10-20); Calcium,Total 9.8 mg/dL (8.5-10.1); Chloride 100 mmol/L (98-107); Creatinine, Serum 4.18 mg/dL (0.70-1.30); EST Glomerular Filtration Rate 18 mL/min (>60); Est Glom Filt Rate - Afr Amer 22 mL/min (>60); Glucose 124 mg/dL (74-106); Phosphorus 4.3 mg/dL (2.5-4.9); Potassium 3.8 mmol/L (3.5-5.1); Sodium Level 137 mmol/L (136-145)
[2018-08-02 18:19] LABS: Scan Indicated on CBC? Y/N NO
[2018-08-02 18:20] LABS: Vitamin D,25 Hydroxy 51.6 ng/mL (29.95-100.01)
== END ==
PROVIDERS: Family Provider Family Medicine; PCP Family Medicine; Visit Provider Internal Medicine Nephrology
DX: N18.4 Chronic kidney disease, stage 4 (severe) (principal)
CPT/HCPCS: 36415; 80069; 82306; 82570; 83970; 84156; 85027

== ENCOUNTER → 2018-09-27 08:34 | Outpatient (CLI) | payer BC, SELFPAY ==
[2018-09-02 15:10] VITALS: BMI 20.1
[2018-09-27 10:09] LABS: Hematocrit 33.9 % (40-54); Hemoglobin 10.9 g/dl (13.0-16.5); Mean Corp Hgb Conc 32.2 g/gl (32-36); Mean Corpuscular Hgb 29.8 pg (27.0-32.0); Mean Corpuscular Volume 92.6 fL (80-94); Mean Platelet Vol. 10.7 fl (6.2-12.0); Platelet Count 355 K/mm3 (150-450); RBC Distribution Width CV 12.2 % (11.6-14.6); RBC Distribution Width SD 40.2 fl (35.1-43.9); Red Blood Count 3.66 M/mm3 (4.6-6.2); White Blood Count 6.6 K/mm3 (4.4-11.0)
[2018-09-27 10:14] LABS: Scan Indicated on CBC? Y/N NO
[2018-09-27 10:32] LABS: Protein, Urine (Random) 157.2 mg/dL (<11.9); Protein:Creat Ratio 919 mg/g CRE (0-200)
[2018-09-27 10:33] LABS: Albumin, Serum 3.8 g/dL (3.2-5.0); BUN 40 mg/dL (7-18); Calcium,Total 9.2 mg/dL (8.5-10.1); Chloride 107 mmol/L (98-107); Creatinine, Serum 3.99 mg/dL (0.70-1.30); EST Glomerular Filtration Rate 19 mL/min (>60); Est Glom Filt Rate - Afr Amer 23 mL/min (>60); Glucose 117 mg/dL (74-106); Phosphorus 4.3 mg/dL (2.5-4.9); Potassium 4.2 mmol/L (3.5-5.1); Sodium Level 138 mmol/L (136-145)
[2018-09-27 10:40] LABS: AST(SGOT) 9 U/L (15-37); Alanine Aminotransfer ALT/SGPT 15 U/L (16-61); Albumin, Serum 3.9 g/dL (3.2-5.0); Alkaline Phosphatase 55 U/L (45-117); Bilirubin, Direct 0.11 mg/dL (0.00-0.30); Cholesterol 169 mg/dL (200); Globulin 3.5 g/dL (2.2-4.2); High Density Lipoprotein 40 mg/dL; Protein, Total 7.4 g/dL (6.4-8.2); Triglycerides 168 mg/dL; Very Low Density Lipoprotein 34 mg/dL (5-40)
[2018-09-27 10:42] LABS: PTHIN 85.7 pg/mL (18.4-80.1)
[2018-09-27 10:48] LABS: Vitamin D,25 Hydroxy 60.2 ng/mL (29.95-100.01)
== END ==
PROVIDERS: Internal Medicine Cardiovascular Disease; Family Provider Family Medicine; PCP Family Medicine; Referring Provider Family Medicine; Visit Provider Internal Medicine Nephrology
DX: N18.4 Chronic kidney disease, stage 4 (severe) (principal); Z13.220 Encounter for screening for lipoid disorders; I16.1 Hypertensive emergency
CPT/HCPCS: 36415; 80061; 80069; 80076; 82306; 82570; 83970; 84156; 85027

== ENCOUNTER 2018-10-17 15:11 | Emergency (ER) | payer BC, SELFPAY ==
[2018-09-02 15:10] VITALS: BMI 20.1
[2018-10-17 15:12] VITALS: BP 134/70; PULSE 83; RESP 18; TEMP 36.6; O2SAT 99; BMI 18.6
--- NOTE | 2018-10-17 16:39 | ED.VISSUMM ---
- ER Visit Summary Date of Service: 10/17/18 Chief Complaint: Nausea and vomiting History of Present Illness: The patient is a 28 M who presents with nausea and vomiting that began today. Patient states he ate pizza for lunch then developed heartburn. Patient states he vomited twice after that. Patient states he noted some redness in his emesis. Patient is unsure if it was pizza sauce or if it was blood. Patient denies any further episodes of vomiting. Patient denies any melena or hematochezia. Patient states he is feeling better at the present time. Patient states he has some burning over the epigastric area that radiates into his chest. Patient denies any shortness of breath. Physical Examination: Vital signs are stable. Patient is afebrile. Patient is in no acute distress. Oral mucosa is pink and moist. Neck is supple. Trachea is midline. There is no JVD noted. Heart was regular rate and rhythm. Lungs are clear and equal bilateral. Abdomen is soft. Bowel sounds are normal. There is no tenderness. There is no guarding noted. Skin is warm dry. Cranial nerves II through XII are intact. There are no focal motor or sensory deficits noted. The remaining physical exam is within normal limits. Emergency Department Course and Treatment: Since the patient only had 2 episodes of vomiting and feels better at the present time, I do not feel blood work is necessary at this time. Patient was advised to watch for further episodes of nausea and vomiting. Patient was instructed to watch for worsening abdominal pain. Patient was instructed to watch for blood in his stools or black tarry stools. Patient was instructed to follow-up with his primary care physician in 5 to 7 days. Patient and his understood and were agreeable with the plan. All questions were answered. Disposition: Discharge home Impression: Nausea and vomiting This note was generated with [employer] (formerly [employer]) dictation software. It may contain incorrect words, spelling, and punctuation that were not noted in review of the chart prior to signing ED Disposition - Plan for ED Patient: Disposition: Home or Assisted Living Diagnosis: Nausea and vomiting Instructions: ED Nausea Vomiting, Tips to Control Acid Reflux Referrals: Ernesto Mcnally MD [Primary Care Provider] - 5-7 Days
[2018-10-17 17:00] VITALS: PULSE 80; RESP 17; O2SAT 99
== END 2018-10-17 17:17 | disposition home or self-care (01) ==
PROVIDERS: Emergency Provider Emergency Medicine; Family Provider Family Medicine; PCP Family Medicine
DX: R11.2 Nausea with vomiting, unspecified (principal); R10.9 Unspecified abdominal pain; R07.9 Chest pain, unspecified; N18.6 End stage renal disease; Z72.0 Tobacco use
CPT/HCPCS: 99282

== ENCOUNTER → 2018-10-21 11:29 | Outpatient (CLI) | payer BC, SELFPAY ==
[2018-10-17 15:12] VITALS: BMI 18.6
[2018-10-21 14:19] LABS: Anion Gap 8 (5-15); BUN 46 mg/dL (7-18); BUN/Creat Ratio 12.4 RATIO (10-20); Calcium,Total 9.7 mg/dL (8.5-10.1); Chloride 106 mmol/L (98-107); Creatinine, Serum 3.72 mg/dL (0.70-1.30); EST Glomerular Filtration Rate 20 mL/min (>60); Est Glom Filt Rate - Afr Amer 25 mL/min (>60); Glucose 101 mg/dL (74-106); Sodium Level 137 mmol/L (136-145)
== END ==
PROVIDERS: Family Provider Family Medicine; PCP Family Medicine; Referring Provider Family Medicine; Visit Provider Family Medicine
DX: N05.1 Unspecified nephritic syndrome with focal and segmental glomerular lesions (principal)
CPT/HCPCS: 36415; 80048

== ENCOUNTER → 2019-01-23 08:55 | Outpatient (CLI) | payer BC, SELFPAY ==
[2019-01-23 10:09] LABS: Hematocrit 35.8 % (40-54); Hemoglobin 11.5 g/dL (13.0-16.5); Mean Corp Hgb Conc 32.1 g/dL (32-36); Mean Corpuscular Hgb 29.9 pg (27.0-32.0); Mean Corpuscular Volume 93.2 fL (80-94); Mean Platelet Vol. 10.8 fl (6.2-12.0); Platelet Count 364 K/mm3 (150-450); RBC Distribution Width CV 11.7 % (11.6-14.6); RBC Distribution Width SD 39.8 fl (35.1-43.9); Red Blood Count 3.84 M/mm3 (4.6-6.2); White Blood Count 8.1 K/mm3 (4.4-11.0)
[2019-01-23 10:43] LABS: Anion Gap 10 (5-15); BUN 49 mg/dL (7-18); Calcium,Total 9.2 mg/dL (8.5-10.1); Chloride 103 mmol/L (98-107); Creatinine, Serum 3.76 mg/dL (0.70-1.30); EST Glomerular Filtration Rate 20 mL/min (>60); Est Glom Filt Rate - Afr Amer 24 mL/min (>60); Glucose 109 mg/dL (74-106); Potassium 3.9 mmol/L (3.5-5.1); Sodium Level 138 mmol/L (136-145)
== END ==
PROVIDERS: Family Provider Family Medicine; PCP Family Medicine; Visit Provider Internal Medicine Nephrology
DX: N18.4 Chronic kidney disease, stage 4 (severe) (principal)
CPT/HCPCS: 36415; 80048; 85027

== ENCOUNTER → 2019-02-07 16:20 | Outpatient (CLI) | payer BC, SELFPAY ==
[2019-02-07 18:05] LABS: Hemoglobin A1c 5.1 % (4.2-6.3)
[2019-02-07 18:42] LABS: Free T3 2.8 pg/mL (2.18-3.98); T4 Total, Thyroxin 13.1 ug/dL (4.5-12.1); Thyroid Stim Hormone (TSH) 0.94 uIU/mL (0.358-3.74)
== END ==
PROVIDERS: Family Provider Family Medicine; PCP Family Medicine; Referring Provider Family Medicine; Visit Provider Internal Medicine Nephrology
DX: R63.4 Abnormal weight loss (principal)
CPT/HCPCS: 36415; 83036; 84436; 84443; 84481

== ENCOUNTER → 2019-03-31 09:42 | Outpatient (CLI) | payer MEDICAID, SELFPAY ==
[2019-03-31 12:20] LABS: Hematocrit 37.6 % (40-54); Hemoglobin 11.9 g/dL (13.0-16.5); Mean Corp Hgb Conc 31.6 g/dL (32-36); Mean Corpuscular Hgb 29.5 pg (27.0-32.0); Mean Corpuscular Volume 93.1 fL (80-94); Mean Platelet Vol. 10.2 fl (6.2-12.0); Platelet Count 373 K/mm3 (150-450); RBC Distribution Width CV 12.2 % (11.6-14.6); RBC Distribution Width SD 42.3 fl (35.1-43.9); Red Blood Count 4.04 M/mm3 (4.6-6.2)
[2019-03-31 12:30] LABS: Albumin, Serum 3.9 g/dL (3.2-5.0); BUN 33 mg/dL (7-18); Calcium,Total 9.2 mg/dL (8.5-10.1); Chloride 106 mmol/L (98-107); Creatinine, Serum 3.66 mg/dL (0.70-1.30); EST Glomerular Filtration Rate 21 mL/min (>60); Est Glom Filt Rate - Afr Amer 25 mL/min (>60); Glucose 113 mg/dL (74-106); Phosphorus 4.4 mg/dL (2.5-4.9); Potassium 4.4 mmol/L (3.5-5.1); Sodium Level 138 mmol/L (136-145)
[2019-03-31 12:34] LABS: Protein, Urine (Random) 231.8 mg/dL (<11.9); Protein:Creat Ratio 1545 mg/g CRE (0-200)
[2019-03-31 12:36] LABS: PTHIN 127.4 pg/mL (18.4-80.1)
== END ==
PROVIDERS: Family Provider Family Medicine; PCP Family Medicine; Referring Provider Internal Medicine Nephrology; Visit Provider Internal Medicine Nephrology
DX: N18.4 Chronic kidney disease, stage 4 (severe) (principal); N25.81 Secondary hyperparathyroidism of renal origin; D64.9 Anemia, unspecified
CPT/HCPCS: 36415; 80069; 82306; 82570; 83970; 84156; 85027

== ENCOUNTER → 2019-04-25 08:50 | Outpatient (CLI) | payer MEDICAID, SELFPAY ==
--- NOTE | 2019-04-25 08:54 | RDU_ITS ---
Reason For Study: HTN Right Renal Artery Left Renal Artery Right renal artery ostium 97.0/15.8 Left renal artery ostium 68.5/13.6 RSV/EDV. PSV/EDV. Right renal artery proximal Left renal artery proximal PSV/EDV 59.7/11.4 PSV/EDV. 59.7/15.8 . Right renal artery mid 66.3/20.0 Left renal artery mid 57.5/15.8 PSV/EDV. PSV/EDV . Right renal artery distal 69.9/21.7 Left renal artery distal 40.5/13.7 PSV/EDV. PSV/EDV. Right Renal Parenchyma Left Renal Parenchyma Upper Pole Medula 11.7/5.6 PSV/EDV. Left upper pole medulla 16.0/8.4 Right upper pole medulla EDR .48 . PSV/EDV . Right upper pole medulla R.I. .52 . Left upper pole medulla EDR .52 . Upper [place]roy Cortx 12.7/6.2 PSV/EDV. Left upper pole medulla R.I. .48 . Right upper pole cortex EDR .48 . UP Cortex 12.7/5.6 PSV/EDV. Right upper pole cortex R.I. .52 . Left upper pole cortex EDR .44 . Right lower Pole medulla 30.9/11.7 Left upper pole cortex R.I. .56 . PSV/EDV . Left lower Pole medulla 14.4/6.2 Right lower pole medulla EDR .38 . PSV/EDV . Right lower pole medulla R.I. .62 . Left lower pole medulla EDR .43 . Lower Pole Cortex 18.2/6.7 PSV/EDV. Left lower pole medulla R.I. .57 . Right lower pole cortex EDR .37 . Lower Pole Cortx 14.4/7.3 PSV/EDV. Right lower pole cortex R.I. .63 . Left lower pole cortex EDR .5 . Right Renal Hilar Left lower pole cortex R.I. .5 . Right Hilar avg 35.3/14.9 PSV/EDV. Left Renal Hilar Right hilar acceleration time 50.0 LT Hilar avg 28.7/11.1 PSV/EDV . m/sec. Left hilar acceleration time 30.0 Right Renal Dimensions m/sec. Right kidney size 9.62 cm . Left Renal Dimensions Right cortical dimension 1.2 cm . Left kidney size 8.4 cm . Left cortical dimension 1.29 cm . Aorta Proximal abdominal aorta 1.75 x 1.79 cm . Proximal abdominal aorta peak systolic velocity is 130 cm/sec . Distal abdominal aorta 1.58 x 1.69 cm . Distal abdominal aorta peak systolic velocity is 114.6 cm/sec . Interpretation Summary No evidence for hemodynamically significant stenosis bilateral renal arteries with [<60%]% stenosis bilaterally. Normal right renal length of 9.62 cm Slightly diminished left renal length 8.4 cm Normal renal resistivity indices bilaterally suggesting normal renal parenchymal function Ordering Physician: Louis Harman Performed By: Oscar Carver RVT
== END ==
PROVIDERS: Family Provider Family Medicine; PCP Family Medicine; Referring Provider Internal Medicine Nephrology; Visit Provider Internal Medicine Nephrology
DX: I10 Essential (primary) hypertension (principal)
CPT/HCPCS: 93975

== ENCOUNTER → 2019-05-16 15:41 | Outpatient (CLI) | payer MEDICAID, SELFPAY ==
[2019-05-23 18:44] LABS: Aldosterone, Serum 29.3 ng/dL (0.0-30.0); Renin, Plasma 2.792 ng/mL/hr (0.167-5.380)
== END ==
PROVIDERS: Family Provider Family Medicine; PCP Family Medicine; Referring Provider Family Medicine; Visit Provider Internal Medicine Nephrology
DX: I10 Essential (primary) hypertension (principal)
CPT/HCPCS: 36415; 82088; 84244

== ENCOUNTER 2019-05-18 10:42 | Emergency (ER) | payer MEDICAID, SELFPAY ==
[2019-05-18 10:43] VITALS: BP 141/102; PULSE 84; RESP 18; TEMP 36.9; O2SAT 97; BMI 19.9
--- NOTE | 2019-05-18 11:09 | ED.DCSUM_ITS ---
- ER Visit Summary Date of Service: 05/18/19 Chief Complaint: [Swelling to both eyes] History of Present Illness: The patient is a 29 M [the emergency department complaint of swelling to both eyes that he noticed in the middle night last night. Patient cannot think of anything he may have come in contact with. Patient states that he did wipe his eyes with a napkin from his glove box yesterday but did not start having symptoms right away. He denies any blurred vision. He denies any eye pain. Denies any itching. He has had no fever or recent illness. Patient does have a history of chronic kidney disease and history of hypertension. Medications. He denies any new detergents. He did switch soap about a week ago or so but does not have symptoms anywhere else on his body.] Physical Examination: [HEENT-PERRLA, EOMI. Cranial nerves II through XII grossly intact. TMs clear. Mucous membranes moist. No adenopathy. She does have edema to the upper and lower lids bilaterally and some faint erythema. No cellulitic changes noted. No conjunctival erythema noted. There is no conjunctival drainage. Cardiovascular-regular rate and rhythm without murmur or ectopy Lungs-clear to auscultation, chest wall stable without crepitus or subcu emphysema Abdomen-normoactive bowel sounds, soft, nontender, no rebound or rigidity, no peritoneal signs. Extremities-intact ?4, normal range of motion, normal pulses, atraumatic] Test Results: [None indicated] Emergency Department Course and Treatment: [Patient was started on prednisone 40 mg p.o. I suspect an allergic or contact dermatitis etiology to symptoms.] Treatment Plan: [Patient will be treated with prednisone for 5 days] Disposition: [Discharged home in stable condition] Impression: [Contact dermatitis] This note was generated with [employer] software. It may contain incorrect words, spelling, and punctuation that were not noted in review of the chart prior to signing ED Disposition - Plan for ED Patient: Referrals: Ernesto Mcnally MD [Primary Care Provider] -
--- NOTE | 2019-05-18 11:11 | ED.DEP ---
ED Disposition - Plan for ED Patient: Instructions: ALLERGIC REACTION, Other (Local) Prescriptions: Prednisone [Deltasone] 20 mg PO BID #10 tab Prescription Printed Referrals: Ernesto Mcnally MD [Primary Care Provider] - 3-5 Days
[2019-05-18] MEDS: predniSONE 20 MG Tablet 40 MG PO (11:23)
== END 2019-05-18 11:24 | disposition home or self-care (01) ==
LOC: ED 11:22
PROVIDERS: Emergency Provider Emergency Medicine; Family Provider Family Medicine; PCP Family Medicine
DX: L25.9 Unspecified contact dermatitis, unspecified cause (principal); I12.9 Hypertensive chronic kidney disease with stage 1 through stage 4 chronic kidney disease, or unspecified chronic kidney disease; N18.9 Chronic kidney disease, unspecified; F17.290 Nicotine dependence, other tobacco product, uncomplicated; F12.90 Cannabis use, unspecified, uncomplicated
CPT/HCPCS: 99283

== ENCOUNTER → 2019-06-13 15:41 | Outpatient (CLI) | payer MEDICAID, SELFPAY ==
[2019-05-18 10:43] VITALS: BMI 19.9
== END ==
PROVIDERS: PCP Family Medicine; Referring Provider Family Medicine; Visit Provider Family Medicine
DX: Z00.00 Encounter for general adult medical examination without abnormal findings (principal)
CPT/HCPCS: 36415

== ENCOUNTER → 2019-06-30 14:34 | Outpatient (CLI) | payer MEDICAID, SELFPAY ==
[2019-06-30 15:49] LABS: Hematocrit 35.3 % (40-54); Hemoglobin 11.2 g/dL (13.0-16.5); Mean Corp Hgb Conc 31.7 g/dL (32-36); Mean Corpuscular Hgb 29.1 pg (27.0-32.0); Mean Corpuscular Volume 91.7 fL (80-94); Mean Platelet Vol. 10.7 fl (6.2-12.0); Platelet Count 381 K/mm3 (150-450); RBC Distribution Width CV 12.4 % (11.6-14.6); RBC Distribution Width SD 41.4 fl (35.1-43.9); Red Blood Count 3.85 M/mm3 (4.6-6.2); White Blood Count 8.1 K/mm3 (4.4-11.0)
[2019-06-30 15:59] LABS: Protein, Urine (Random) 310.5 mg/dL (<11.9); Protein:Creat Ratio 1978 mg/g CRE (0-200)
[2019-06-30 16:26] LABS: Albumin, Serum 3.7 g/dL (3.2-5.0); BUN 38 mg/dL (7-18); BUN/Creat Ratio 8.8 RATIO (10-20); Chloride 106 mmol/L (98-107); EST Glomerular Filtration Rate 17 mL/min (>60); Est Glom Filt Rate - Afr Amer 21 mL/min (>60); Glucose 94 mg/dL (74-106); Phosphorus 4.7 mg/dL (2.5-4.9); Potassium 4.5 mmol/L (3.5-5.1); Sodium Level 140 mmol/L (136-145)
[2019-06-30 16:43] LABS: PTHIN 203.3 pg/mL (18.4-80.1)
[2019-07-04 10:05] LABS: Vitamin D,25 Hydroxy 17.4 ng/mL
== END ==
PROVIDERS: PCP Family Medicine; Referring Provider Family Medicine; Visit Provider Internal Medicine Nephrology
DX: N18.4 Chronic kidney disease, stage 4 (severe) (principal); N25.81 Secondary hyperparathyroidism of renal origin; D64.9 Anemia, unspecified
CPT/HCPCS: 36415; 80069; 82306; 82570; 83970; 84156; 85027

== ENCOUNTER → 2019-07-10 17:09 | Outpatient (CLI) | payer MEDICAID, SELFPAY | PROVIDERS: PCP Family Medicine; Referring Provider Family Medicine | DX: N18.6 End stage renal disease (principal) | CPT/HCPCS: 36415 ==

== ENCOUNTER → 2019-09-07 08:13 | Outpatient (CLI) | payer MEDICAID, SELFPAY ==
[2019-09-07 09:55] LABS: Hematocrit 32.7 % (40-54); Hemoglobin 10.8 g/dL (13.0-16.5); Mean Corpuscular Hgb 30.7 pg (27.0-32.0); Mean Corpuscular Volume 92.9 fL (80-94); Mean Platelet Vol. 10.3 fl (6.2-12.0); Platelet Count 356 K/mm3 (150-450); RBC Distribution Width CV 12.2 % (11.6-14.6); RBC Distribution Width SD 40.7 fl (35.1-43.9); Red Blood Count 3.52 M/mm3 (4.6-6.2); White Blood Count 8.6 K/mm3 (4.4-11.0)
[2019-09-07 10:01] LABS: Albumin, Serum 3.7 g/dL (3.2-5.0); BUN 43 mg/dL (7-18); BUN/Creat Ratio 8.4 RATIO (10-20); Chloride 106 mmol/L (98-107); Creatinine, Serum 5.14 mg/dL (0.70-1.30); EST Glomerular Filtration Rate 14 mL/min (>60); Est Glom Filt Rate - Afr Amer 17 mL/min (>60); Glucose 106 mg/dL (74-106); Phosphorus 5.6 mg/dL (2.5-4.9); Potassium 4.2 mmol/L (3.5-5.1); Sodium Level 139 mmol/L (136-145)
[2019-09-07 10:04] LABS: PTHIN 331.4 pg/mL (18.4-80.1)
[2019-09-07 10:07] LABS: Protein, Urine (Random) 286.4 mg/dL (<11.9); Protein:Creat Ratio 2348 mg/g CRE (0-200); Vitamin D,25 Hydroxy 15.2 ng/mL
== END ==
PROVIDERS: PCP Family Medicine; Referring Provider Internal Medicine Nephrology; Visit Provider Internal Medicine Nephrology
DX: N18.4 Chronic kidney disease, stage 4 (severe) (principal); N25.81 Secondary hyperparathyroidism of renal origin; D64.9 Anemia, unspecified
CPT/HCPCS: 36415; 80069; 82306; 82570; 83970; 84156; 85027

== ENCOUNTER → 2019-10-04 08:06 | Outpatient (CLI) | payer MEDICAID, SELFPAY ==
[2019-10-04 10:17] LABS: International Normalized Ratio 1.1; Prothrombin Time (Protime)PT. 13.3 SECONDS (11.7-14.9)
[2019-10-04 10:18] LABS: Partial Thromboplast Time 30.7 Seconds (24.1-36.2)
--- NOTE | 2019-10-04 11:39 | RAD_ITS ---
STUDY: X-RAY CHEST REASON FOR EXAM: Male, 29 years old. End stage renal disease -- pre procedure exam TECHNIQUE: PA and lateral views of the chest. COMPARISON: Comparison is made with prior examination dated June 17, 2018. FINDINGS: The lungs are clear and expanded. There is no demonstrated pleural abnormality. Normal size heart. Normal mediastinum and hermelinda. Normal visualized pulmonary arteries. Normal visualized aortic arch and descending thoracic aorta. Normal visualized thoracic spine. Normal visualized ribs, clavicles, and shoulders. There is no demonstrated abnormality of the visualized soft tissue structures of the upper abdomen. RAD/Chest PA and Lateral IMPRESSION: Normal x-ray examination of the chest. Electronically Signed: Max Jolly, at 15:51 EDT , Service support ,
== END ==
PROVIDERS: PCP Family Medicine; Referring Provider Internal Medicine Nephrology; Visit Provider Internal Medicine Nephrology
DX: Z01.812 Encounter for preprocedural laboratory examination (principal); N18.6 End stage renal disease
CPT/HCPCS: 36415; 71046; 85610; 85730

== ENCOUNTER → 2019-10-10 12:01 | Outpatient (CLI) | payer MEDICAID, SELFPAY | PROVIDERS: PCP Family Medicine | DX: N18.6 End stage renal disease (principal) | CPT/HCPCS: 36415 ==

== ENCOUNTER → 2019-10-12 12:05 | Outpatient (CLI) | payer MEDICAID, SELFPAY ==
[2019-10-13 10:41] LABS: Hepatitis B Surface Antibody Reactive; Hepatitis B Surface Antigen Non-Reactive (Nonreactive)
[2019-10-14 12:53] LABS: Hepatitis B Core Ab Total Negative (Negative)
== END ==
PROVIDERS: PCP Family Medicine; Referring Provider Internal Medicine Nephrology; Visit Provider Internal Medicine Nephrology
DX: N18.6 End stage renal disease (principal)
CPT/HCPCS: 36415; 86704; 86706; 87340